=== PATIENT | female | born 1930 | race Caucasian/White ===

== ENCOUNTER 2016-09-17 17:36 | Inpatient (IN) | payer MEDICARE, MEDICAID ==
[~2016-09-17] VITALS: Ht 160 cm; Wt 58.6 kg
[2016-09-17] MEDS ORDERED: LEVOFLOXACIN 750MG/D5W (PMX) 150 ML IVPB STA (19:45)
[2016-09-17] MEDS ORDERED: CEFEPIME 2GM/50 ML (PMX) 50 ML IVPB STA (19:45)
[2016-09-17] MEDS ORDERED: VANCOMYCIN 1 GM (PMX) 250 ML IVPB STA (19:45)
[2016-09-17] MEDS ORDERED: ACETAMINOPHEN 325 MG SUPP PR STA (19:45)
--- NOTE | 2016-09-17 19:57 | ERA ---
ER Documentation Chief Complaint Date/Time DATE: 09/17/16 TIME: 19:50 Chief Complaint chest congestion,cough, low hgb from [facility],c/o lower back merry HPI History is limited due to the patient's cognitive impairment is obtained primarily from review of correction facility records and transferring paramedics and subsequently her daughter.. 85-year-old female with a history of cervical myelopathy, C5 -C7 incomplete quadriplegia, Parkinson's disease, hyperlipidemia, hypertension, GERD, polyarthritis and urinary tract infections brought to the ED via ambulance from [facility] for evaluation of fever, cough, bronchitis, and abnormal labs with H/H8 0.2/24.5 and sodium of 128. Patient has a POLST indicating DNR with comfort focused treatment and no artificial means of nutrition. Her legally recognized decision-maker is her daughter, Estrellita Velasquez who is at the bedside and confirms the patient desire for DNR and comfort measures.. ROS All systems reviewed and are negative except as per history of present illness. Medications Home Meds Reported Medications Cholecalciferol* (Vitamin D3*) 1,000 Unit Tablet, 1000 UNIT PO DAILY, TAB 09/17/16 Sodium Chloride* (Sodium Chloride*) 1 Gm Tablet, 1 GM PO BID, TAB 09/17/16 Carbidopa-Levodopa* (Sinemet*) 25-100 Mg Tab, 1 TAB PO BID, TAB 09/17/16 Sennosides* (Senna Lax*) 8.6 Mg Tablet, 1 TAB PO QHS, TAB 09/17/16 Hydrocodone/Acetaminophen ([place] 5-325 Tablet) 1 Each Tablet, 1 EACH PO Q6 Y for PAIN -05/28, TAB 09/17/16 Polyethylene Glycol* (Miralax*) 17 Gm Powd.pack, 17 GM PO DAILY, #30 PACKET 09/17/16 Metoprolol Tartrate* (Lopressor*) 25 Mg Tab, 25 MG PO BID, #60 TAB HOLD SBP LESS THAN 110 MMHG OR HR LESS THAN 60 BPM 09/17/16 Melatonin (Melatonin) 3 Mg Tablet.sa, 3 MG PO HS, TAB.SA 09/17/16 Megestrol Acetate* (Megace*) 400 Mg/10 Ml Oral.susp, 400 MG PO DAILY, ML 09/17/16 Mag Hydrox/Al Hydrox/Simeth (Maalox Advanced Suspension) 355 Ml Oral.susp, 30 ML PO Q4 09/17/16 Enoxaparin Sodium* (Lovenox*) 40 Mg/0.4 Ml Syringe, 40 MG SC DAILY, SYR 09/17/16 Losartan Potassium* (Losartan Potassium*) 50 Mg Tablet, 50 MG PO DAILY, TAB HOLD SBP LESS THAN 110 MMHG OR HR LESS THAN 60 BPM 09/17/16 Gabapentin* (Gabapentin*) 100 Mg Capsule, 100 MG PO QHS, #90 CAP 09/17/16 Famotidine* (Famotidine*) 20 Mg Tablet, 20 MG PO QAM, #30 TAB 09/17/16 Bisacodyl* (Bisacodyl*) 10 Mg Supp, 10 MG IN Q24H for CONSTIPATION, SUPP 09/17/16 Docusate Sodium* (Docusate Sodium*) 100 Mg Capsule, 100 MG PO BID, #60 CAP 09/17/16 Cranberry Fruit Concentrate (CRANBERRY) 450 Mg Capsule, 450 MG PO DAILY, CAP 09/17/16 Cholecalciferol* (Vitamin D3*) 1,000 Unit Tablet, 1000 UNIT PO DAILY, TAB 09/17/16 Atorvastatin* (Atorvastatin*) 40 Mg Tablet, 40 MG PO QHS, #30 TAB 09/17/16 Aspirin* (Aspirin* Chew) 81 Mg Tab.chew, 81 MG PO DAILY, TAB.CHEW 09/17/16 Acetaminophen* (Acetaminophen*) 500 MG Extra Strength Tablet, 1000 MG PO Q6H Y for PAIN LEVEL 4-6/10, TAB 09/17/16 Acetaminophen* (Acetaminophen*) 325 Mg Tablet, 650 MG PO Q4H Y for PAIN AND OR ELEVATED TEMP, #30 TAB if pain level 1-3/10 or temp greater than 101 deg. 09/17/16 Allergies Allergies: Coded Allergies: No Known Allergy (Unverified , 09/17/16) PMhx/Soc Reviewed in chart. As per HPI. Lives in a correction facility. DNR. Hx Neurological Disorder: Yes (Myelopathy, Parkinsons) Hx Respiratory Disorders: No Hx Cardiac Disorders: Yes (Hypertension) Hx Miscellaneous Medical Probl: Yes Hx Alcohol Use: No Hx Substance Use: No Hx Tobacco Use: No FmHx No stroke or cancer. Physical Exam Vitals Vital Signs Date Time Temp Pulse Resp B/P Pulse Ox O2 Delivery O2 Flow Rate FiO2 09/17/16 19:50 100.9 103 18 112/87 99 Room Air Nasal Cannula 09/17/16 19:50 Nasal Cannula 3 09/17/16 19:15 100.9 108 18 126/57 97 Physical Exam Const: Elderly, ill-appearing but in no acute distress. Head: Atraumatic Eyes: Normal Conjunctiva ENT: Normal External Ears, Nose and Mouth. Neck: Full range of motion. No JVD. No meningismus. Resp: Breath sounds diminished at the bases with occasional expiratory wheezing but no rhonchi. Cardio: Regular rate and rhythm, no murmurs Abd: Soft, non tender, non distended. Normal bowel sounds. Brown stool, heme (-). Skin: No petechiae or rashes Back: No midline or flank tenderness Ext: No cyanosis, or edema Neur: Awake and alert but confused. No focal deficit. Psych: Normal Mood and Affect Result Diagram: 09/18/16 0506 09/18/16 0506 Results 24 hrs Laboratory Tests Test 09/17/16 20:05 09/17/16 20:55 09/17/16 22:00 09/17/16 22:30 Activated Partial Thromboplast Time 34.2Sec Alanine Aminotransferase (ALT/SGPT) 31IU/L Albumin 3.4g/dl Albumin/Globulin Ratio 0.82 Alkaline Phosphatase 110IU/L Anion Gap 20 Aspartate Amino Transf (AST/SGOT) 55IU/L Band Neutrophils % 6.0% Blood Urea Nitrogen 22mg/dl Calcium Level 8.5mg/dl Carbon Dioxide Level 22mmol/L Chloride Level 92mmol/L Creatinine 0.77mg/dl Direct Bilirubin 0.00mg/dl Globulin 4.10g/dl Glucose Level 150mg/dl Hematocrit 29.6% Hemoglobin 9.9g/dl INR International Normalized Ratio 1.06 Indirect Bilirubin 0.0mg/dl Lactic Acid Level 1.9mmol/L 2.1mmol/L Lymphocytes # 1.910^3/ul Lymphocytes % 10.0% Mean Corpuscular Hemoglobin 31.6pg Mean Corpuscular Hemoglobin Concent 33.5g/dl Mean Corpuscular Volume 94.3fl Mean Platelet Volume 7.5fl Monocytes # 1.910^3/ul Monocytes % 10.0% Neutrophils # 14.010^3/ul Neutrophils % 74.0% Platelet Count 63893^3/UL Potassium Level 5.2mmol/L Prothrombin Time 13.8Sec Prothrombin Time Ratio 1.1 Red Blood Count 3.1410^6/ul Red Cell Distribution Width 13.6% Sodium Level 129mmol/L Total Bilirubin 0.0mg/dl Total Protein 7.5g/dl Troponin I 0.147ng/ml White Blood Count 18.910^3/ul Stool Occult Blood NEGATIVE Urine Bacteria MANY Urine Bilirubin NEGATIVE Urine Clarity CLOUDY Urine Color YELLOW Urine Glucose NEGATIVE% Urine Hemoglobin 1+ Urine Ketones NEGATIVE Urine Leukocyte Esterase 3+ Urine Microscopic RBC 2-5/HPF Urine Microscopic WBC >200/HPF Urine Nitrite NEGATIVE Urine Specific [place] 1.010 Urine Total Protein 2+ Urine Transitional Epithelial Cells FEW Urine Triple Phosphate Crystals FEW Urine Urobilinogen 0.2 E.U./dL Urine pH >=9.0 Current Medications Medications (Trade) Dose Ordered Sig/Leyda Route PRN Reason Start Time Stop Time Status Last Admin Dose Admin Acetaminophen 325 mg 325 mg ONCE STAT IN 09/17/16 19:45 09/17/16 19:50 DC 09/17/16 20:38 Vancomycin HCl 250 ml @ 125 mls/hr ONCE STAT IVPB 09/17/16 19:45 09/17/16 21:44 DC 09/17/16 20:39 Cefepime HCl 50 ml @ 100 mls/hr ONCE STAT IVPB 09/17/16 19:45 09/17/16 20:14 DC 09/17/16 20:38 Levofloxacin/ Dextrose (Levaquin 750 Mg/ D5W 150 ml (Pmx)) 150 ml @ 100 mls/hr ONCE STAT IVPB 09/17/16 19:45 09/17/16 21:14 DC 09/17/16 20:38 Pantoprazole (Protonix Iv) 40 mg ONCE ONCE IV 09/17/16 20:30 09/17/16 20:31 DC 09/17/16 20:38 Albuterol (Proventil 0.5% (Neb)) 10 mg ONCE STAT INH 09/17/16 20:21 09/17/16 20:22 DC Ipratropium [place] (Atrovent 0.02% (Neb)) 1 mg ONCE STAT INH 09/17/16 20:21 09/17/16 20:22 DC Aspirin 325 mg 325 mg ONCE ONCE PO 09/17/16 21:30 09/17/16 21:32 DC 09/17/16 21:37 Sodium Chloride (NS) 1,000 ml @ 75 mls/hr [id number] IV 09/17/16 22:36 09/18/16 02:32 DC EKG: Sinus tachycardia with occasional PAC's. Rate 104. No acute STTW changes. Normal axis. EP Interpretation: Abnormal EKG. IMAGING: PROCEDURE: XR Chest. CLINICAL INDICATION: Dyspnea and possible sepsis TECHNIQUE: AP Portable chest. COMPARISON: None available FINDINGS: The soft tissues and bones are remarkable for bilateral acromioclavicular osteoarthropathy and thoracic spondylosis.. No focal infiltrates, masses, or effusions are noted. The mediastinum and heart are remarkable for mild cardiomegaly and vascular calcifications of the thoracic aorta. No pneumothorax is present. IMPRESSION: 1. No radiographic evidence for acute cardiopulmonary disease. 2. Mild cardiomegaly and mild atherosclerotic vascular disease RPTAT: HDC .Jojo Pearce MD, MD Date Time Electronically viewed and signed by .Jojo Pearce MD, MD on 09/17/2016 21: 06 .C/ Procedures/MDM DOCUMENTS REVIEWED: ED nurse, correction facility records. MEDICAL DECISION MAKIN-year-old female with a history of cervical myelopathy, C5 -C7 incomplete quadriplegia, Parkinson's disease, hyperlipidemia , hypertension, GERD, polyarthritis and urinary tract infections brought to the ED via ambulance from [facility] for evaluation of fever, cough, bronchitis, and abnormal labs with H/H8.2/24.5 and sodium of 128. Multiple criteria for systemic inflammatory response syndrome including fever, tachycardia, tachypnea and leukocytosis. Source of infection UTI. Initial lactate is 1.6 and repeat is pending. Anemia with recent drop from 11.2-9.9gm/ dl. Stool is heme-negative. Hyponatremia and dehydration. Elevated troponin consistent with NSTEMI but no chest pain or ischemic EKG changes. Doubt PE. Patient and daughter reiterated request for DNR and comfort measures but agrees to admission, IV fluids and antibiotics. Patient will be admitted to [facility] for comfort measures, further evaluation and management. Counseled patient and family regarding diagnosis, diagnostic results and plan for admission. CALLS/CONSULTS: Time 2104, Dr. Sanabria, Recommends admission to [facility]. PATIENT CARE TRANSITIONED: Time: 22:00, Dr. Sanabria. Departure Diagnosis: Primary Impression: Sepsis Qualified Code: A41.9 - Sepsis, due to unspecified organism Additional Impressions: Urinary tract infection Qualified Code: N39.0 - Urinary tract infection without hematuria, site unspecified DNR (do not resuscitate) Acute encephalopathy Cervical myelopathy Anemia Qualified Code: D64.9 - Anemia, unspecified type Condition: Serious TERESA CHOUDHARY MD Sep 17, 2016 19:57
[2016-09-17] MEDS ORDERED: ALBUTEROL 0.5% (NEB) 2.5 MG/0.5 ML AMP INH STA (20:21)
[2016-09-17] MEDS ORDERED: IPRATROPIUM (NEB) 0.5 MG/2.5 ML AMP INH STA (20:21)
[2016-09-17] MEDS ORDERED: PANTOPRAZOLE 40 MG INJ IV ONE (20:30)
[2016-09-17] MEDS ORDERED: ACET325T45 PO (20:40)
[2016-09-17] MEDS ORDERED: ACET-141 PO (20:41)
[2016-09-17] MEDS ORDERED: ASPI81TA3 PO (20:42)
[2016-09-17] MEDS ORDERED: ATOR40TA68 PO (20:42)
[2016-09-17] MEDS ORDERED: CHOL100062 PO ×2 (20:43→21:02)
[2016-09-17] MEDS ORDERED: CRAN450C PO (20:44)
[2016-09-17] MEDS ORDERED: DOCU-159 PO (20:44)
[2016-09-17] MEDS ORDERED: FAMO20TA18 PO (20:45)
[2016-09-17] MEDS ORDERED: DULR PR (20:45)
[2016-09-17] MEDS ORDERED: GABA100C14 PO (20:46)
[2016-09-17] MEDS ORDERED: LOSA50TA6 PO (20:48)
[2016-09-17] MEDS ORDERED: ENOX40DI14 SC (20:49)
[2016-09-17 20:51] LABS: HEMATOCRIT 29.6 % (37.0-47.0); HEMOGLOBIN 9.9 g/dl (12.0-16.0); MEAN CORPUSCULAR HEMOGLOBIN 31.6 pg (29.0-33.0); MEAN CORPUSCULAR HGB CONC 33.5 g/dl (32.0-37.0); MEAN CORPUSCULAR VOLUME 94.3 fl (82.0-101.0); MEAN PLATELET VOLUME 7.5 fl (7.4-10.4); PLATELET COUNT 437 10^3/UL (140-440); RED BLOOD COUNT 3.14 10^6/ul (4.20-5.40); RED CELL DISTRIBUTION WIDTH 13.6 % (11.5-14.5); UNCORRECTED WBC 18.9 10^3/ul (4.8-10.8); WHITE BLOOD COUNT 18.9 10^3/ul (4.8-10.8)
[2016-09-17] MEDS ORDERED: MAG355OR14 PO (20:54)
[2016-09-17] MEDS ORDERED: MEGE400O PO (20:55)
[2016-09-17 20:56] LABS: CONDITION 1; LH ANALYZER COMMENTS 1; SUSPECT 1
[2016-09-17] MEDS ORDERED: MELA3TAB17 PO (20:56)
[2016-09-17] MEDS ORDERED: POLY17PO6 PO (20:58)
[2016-09-17] MEDS ORDERED: METO-448 PO (20:58)
[2016-09-17 20:59] LABS: ALBUMIN 3.4 g/dl (3.3-4.9); POTASSIUM 5.2 mmol/L (3.5-5.1)
[2016-09-17] MEDS ORDERED: HYDR-906 PO (20:59)
[2016-09-17 21:00] LABS: INR 1.06; PROTIME 13.8 Sec (12.2-14.2); PT RATIO 1.1
[2016-09-17] MEDS ORDERED: SENN-53 PO (21:00)
[2016-09-17 21:01] LABS: CREATININE 0.77 mg/dl (0.44-1.00); PARTIAL THROMBOPLASTIN TIME 34.2 Sec (25.0-35.0)
[2016-09-17] MEDS ORDERED: SODI1TAB2 PO (21:01)
[2016-09-17] MEDS ORDERED: SIN25100 PO (21:01)
[2016-09-17 21:02] LABS: ALBUMIN/GLOBULIN RATIO 0.82; TOTAL PROTEIN 7.5 g/dl (6.1-8.1)
[2016-09-17 21:03] LABS: CALCIUM 8.5 mg/dl (8.4-10.2)
--- NOTE | 2016-09-17 21:07 | RADRPT ---
PROCEDURE: XR Chest. CLINICAL INDICATION: Dyspnea and possible sepsis TECHNIQUE: AP Portable chest. COMPARISON: None available FINDINGS: The soft tissues and bones are remarkable for bilateral acromioclavicular osteoarthropathy and thora cic spondylosis.. No focal infiltrates, masses, or effusions are noted. The mediastinum and heart are remarkable for mild cardiomegaly and vascular calcifications of the thoracic aorta. No pneumoth orax is present. IMPRESSION: 1. No radiographic evidence for acute cardiopulmonary disease. 2. Mild cardiomegaly and mild atherosclerotic vascular disease RPTAT: HDC .Jojo Pearce MD, MD Date Time Electronically viewed and signed by .Jojo Pearce MD, on 09/17/2016 21:06 .C/
[2016-09-17 21:16] LABS: LYMPHOCYTES # 1.9 10^3/ul (0.8-2.9); MONOCYTE # 1.9 10^3/ul (0.3-0.9)
[2016-09-17 21:24] LABS: TROPONIN-I 0.147 ng/ml (0.00-0.12)
[2016-09-17] MEDS ORDERED: ASPIRIN 325 MG TAB PO ONE (21:30)
[2016-09-17] MEDS ORDERED: SOD CHLORIDE 0.9% 1,000 ML IV SCH (22:36)
[2016-09-17 23:00] LABS: ADD UMIC YES; URINE BILIRUBIN (Dip) NEGATIVE (NEGATIVE); URINE BLOOD (Dip) 1+ (NEGATIVE); URINE GLUCOSE (Dip) NEGATIVE (NEGATIVE); URINE KETONES (Dip) NEGATIVE (NEGATIVE); URINE LEUKOCYTE ESTERASE (Dip) 3+ (NEGATIVE); URINE NITRITE (Dip) NEGATIVE (NEGATIVE); URINE TOTAL PROTEIN (Dip) 2+ (NEGATIVE); URINE UROBILINOGEN (Dip) 0.2 E.U./dL (0.1-1.0)
[2016-09-17] MEDS ORDERED: ONDANSETRON 4 MG INJ IV PRN (23:00)
[2016-09-17] MEDS ORDERED: ACETAMINOPHEN 325 MG TAB PO PRN (23:00)
[2016-09-17 23:15] LABS: URINE COLOR YELLOW (YELLOW)
[2016-09-17 23:17] LABS: BACTERIA,URINE MANY
[2016-09-17 23:18] LABS: TRANSITIONAL EPI CELLS,URINE FEW
[2016-09-18 00:53] VITALS: TEMP 99
[2016-09-18] MEDS ORDERED: HYDROCODONE/APAP (5/325) TAB PO PRN (02:30)
[2016-09-18] MEDS ORDERED: ACETAMINOPHEN 500 MG TAB PO PRN (02:30)
[2016-09-18] MEDS ORDERED: BISACODYL 10 MG SUPP PR SCH (02:30)
[2016-09-18 02:36] VITALS: BP 99/49; PULSE 89; RESP 16; Ht 160 cm; Wt 58.6 kg
[2016-09-18] MEDS ORDERED: LEVOFLOXACIN 500MG/D5W (PMX) 100 ML IVPB ONE (03:30)
[2016-09-18] MEDS: AL HYDROX/MG HYDROX/SIMETH 30 ML CUP PO SCH ×5 (04:54→20:53)
[2016-09-18 05:56] LABS: POTASSIUM 5.1 mmol/L (3.5-5.1)
[2016-09-18 05:59] LABS: CREATININE 0.78 mg/dl (0.44-1.00)
[2016-09-18 06:24] LABS: EOSINOPHILS # 0.1 10^3/ul (0.0-0.5); EOSINOPHILS % 0.6 % (0.0-7.0); HEMATOCRIT 25.7 % (37.0-47.0); HEMOGLOBIN 8.9 g/dl (12.0-16.0); LYMPHOCYTES # 1.8 10^3/ul (0.8-2.9); LYMPHOCYTES % 12.2 % (15.0-51.0); MEAN CORPUSCULAR HEMOGLOBIN 32.6 pg (29.0-33.0); MEAN CORPUSCULAR HGB CONC 34.5 g/dl (32.0-37.0); MEAN CORPUSCULAR VOLUME 94.4 fl (82.0-101.0); MEAN PLATELET VOLUME 7.4 fl (7.4-10.4); MONOCYTE # 1.2 10^3/ul (0.3-0.9); NEUTROPHIL # 11.6 10^3/ul (1.6-7.5); NEUTROPHILS % 79.2 % (39.0-77.0); PLATELET COUNT 368 10^3/UL (140-440); RED BLOOD COUNT 2.72 10^6/ul (4.20-5.40); RED CELL DISTRIBUTION WIDTH 13.7 % (11.5-14.5); UNCORRECTED WBC 14.7 10^3/ul (4.8-10.8); WHITE BLOOD COUNT 14.7 10^3/ul (4.8-10.8)
[2016-09-18 07:03] LABS: CONDITION 1
[2016-09-18 07:17] VITALS: BP 121/58; RESP 18
[2016-09-18] MEDS: SODIUM CHLORIDE 1 GM TAB PO SCH ×2 (08:57→20:52)
[2016-09-18] MEDS: METOPROLOL 25 MG TAB PO SCH ×2 (08:57→20:53)
[2016-09-18] MEDS: DOCUSATE SODIUM 100 MG CAP PO SCH ×2 (08:57→20:53)
[2016-09-18] MEDS: CHOLECALCIFEROL 1,000 UNIT TAB PO SCH (08:57)
[2016-09-18] MEDS: CARBIDOPA/LEVODOPA (25/100) TAB PO SCH ×2 (08:58→20:53)
[2016-09-18] MEDS: MEGESTROL (40 MG/ML) 10ML CUP PO SCH (08:58)
[2016-09-18] MEDS: FAMOTIDINE 20 MG TAB PO SCH (08:58)
[2016-09-18] MEDS: ASPIRIN 81 MG TAB PO SCH (08:58)
[2016-09-18] MEDS: POLYETHYLENE GLYCOL 17 GM PACKET PO SCH (08:59)
[2016-09-18] MEDS: BISACODYL 10 MG SUPP PR SCH (08:59)
[2016-09-18] MEDS ORDERED: LOSARTAN 50 MG TAB PO SCH (09:00)
[2016-09-18] MEDS ORDERED: CHOLECALCIFEROL 1,000 UNIT TAB PO SCH (09:00)
[2016-09-18] MEDS: ENOXAPARIN 40 MG/0.4 ML SYG SC SCH (09:00)
[2016-09-18] MEDS ORDERED: NON-FORMULARY/PATIENT OWN MED (Cranberry Fruit Concentrate (Cranberry) 450 MG) PO SCH (09:00)
--- NOTE | 2016-09-18 14:02 | HP ---
DATE OF ADMISSION: 09/17/2016 CHIEF COMPLAINT: Chest congestion, cough. HISTORY OF PRESENT ILLNESS: The patient is an 85-year-old female who is a resident of [facility]. The patient has a history of cervical myelopathy with C5-C7 Incom plete quadriplegia, Parkinson's disease, hyperlipidemia, hypertension, GERD, polyarthritis. The juan chan was brought to the emergency room for evaluation of fever, cough. In the emergency room, the p shukri underwent a chest x-ray which revealed no radiographic evidence of acute cardiopulmonary dise ase, mild cardiomegaly, and mild atherosclerotic vascular disease. The patient's urinalysis was pos itive for leukocyte esterase and many bacteria. The patient was noted to have anemia with hemoglobi n on admission of 9.9 and hematocrit of 29.6. The patient's sodium was 129, potassium was 5.2. The patient's lactic acid was 1.9; however, the patient's troponin was 0.147. The patient is DNR accor ding to POLST from the [facility]. The patient also underwent a 12-lead EKG in the em ergency room that shows sinus tachycardia with occasional PAC at the rate of 104. The patient was g iven IV fluids and started on broad-spectrum antibiotics and admitted for further evaluation and man agement to medical/surgical floor. PAST MEDICAL HISTORY: Per HPI. FAMILY HISTORY: Noncontributory. SOCIAL HISTORY: The patient is a resident of [facility]. ALLERGIES: NO KNOWN ALLERGIES. MEDICATIONS ON ADMISSION: 1. Cholecalciferol. 2. Sodium chloride. 3. Sinemet. 4. Senna. 5. [place]. 6. MiraLax p.r.n. 7. Metoprolol. 8. Melatonin. 9. Megace. 10. Maalox. 11. Lovenox. 12. Cozaar 13. Gabapentin. 14. Pepcid. 15. Bisacodyl. 16. Docusate sodium. 17. Cranberry extract. 18. Vitamin D3. 19. Atorvastatin. 20. Aspirin. 21. Tylenol. REVIEW OF SYSTEMS: The patient denies any chest pain, denies any shortness of breath, denies any na usea, vomiting, diarrhea. Other 12-point review of systems is negative unless what is mentioned in the HPI. PHYSICAL EXAMINATION: GENERAL: Well-developed, well-nourished female, currently is awake, alert to name and situation. VITAL SIGNS: Temperature is 98.0, pulse is 86, blood pressure 121/58, respiratory rate 18, oxygen s aturation 100% on 2 L nasal cannula. HEENT: Head is atraumatic, normocephalic. Pupils equal, round, reactive to light and accommodation . Oral mucosa is pink, moist. NECK: Supple, no cervical lymphadenopathy, no thyromegaly. CHEST: Lung sounds are slightly diminished at the bases with mild expiratory wheezes. CARDIOVASCULAR: Normal S1, S2. No murmurs, gallops, clicks, rubs noted. ABDOMEN: Round, soft, nondistended, nontender. Bowel sounds present. There is no guarding, no kathe ound tenderness. SKIN: There is no rash, petechiae noted. EXTREMITIES: No edema, clubbing, cyanosis. NEUROLOGIC: The patient is awake to name and station, otherwise confused. No focal deficits noted. LABORATORY DATA: On admission, CBC: White blood cells 18.9, hemoglobin 9.9, hematocrit 29.6, plate lets 434. Chemistry: Sodium is 129, potassium 5.2, chloride 92, carbon dioxide 22, anion gap 20, B UN is 22, creatinine 0.77, glucose 150. PT 13.8, INR is 1.068, PTT 34.2. Stool for occult blood is negative. ASSESSMENT AND PLAN: 1. Urinary tract infection per urinalysis. Continue patient on Levaquin. Follow up on urine cultu res. Preliminary culture shows mixed gram-negative organisms, more than 100,000. 2. Sepsis secondary to urinary tract infection. Continue IV fluids. 3. Elevated troponin. Will obtain cardiac enzymes q.8 hours x3 and obtain 12-lead EKG and a 2-D ec ho. Dr. King is asked to see patient in cardiology consultation. 4. Hyponatremia secondary to dehydration and hyperkalemia on admission. 5. Cervical myelopathy by history. 6. Hypertension by history. 7. Acute encephalopathy. 8. Anemia. Continue IV fluids. 9. The patient is currently borderline hypotensive. We are going to hold the patient's blood press ure medication. 10. Continue Protonix for peptic ulcer disease prophylaxis and Lovenox for deep venous thrombosis p rophylaxis. Further recommendations based on clinical course. Plan of care discussed with Dr. Willett. Dictated By: ERMIAS TOBAR AUDITOR/QUALITY for SUJATHA WILLETT MD SR/NTS Conf#: [id number] DID#: [id number]
--- NOTE | 2016-09-18 14:45 | CONS ---
Date/Time of Note Date/Time of Note DATE: 09/18/16 TIME: 14:41 Assessment/Plan Assessment/Plan Additional Assessment/Plan Sepsis secondary to UTI Mildly elevated troponin History of hypertension Dyslipidemia Parkinson's -Patient with mild elevation in troponin with no symptoms of chest pain or shortness of breath. Likely secondary to sepsis. Would continue aspirin and statin therapy, obtain serial cardiac enzymes, echocardiogram pending. In review of medical record, patient is DNR with requested comfort measures only. Would continue beta tyler with holding parameters. Antibiotics as per infectious disease colleagues. Consultation Date/Type/Reason Admit Date/Time Sep 17, 2016 at 22:36 Type of Consultation: cv Reason for Consultation Elevated troponin Hx of Present Illness This is an 85-year-old female from nursing facility who was transferred to our facility secondary to fevers, altered mental status. Patient felt to have urinary tract infection and evidence of sepsis. On routine blood work, patient with mildly elevated troponin and for this reason cardiology consultation was requested. Patient denies any chest pain, shortness of breath, dizziness or palpitations. She does complain of back pain and headache this morning which is improved. She denies any history of myocardial infarction. 12 point review of systems was performed with all pertinent positives and negatives mentioned above and all else is negative Past Medical History Parkinson's Medical History: high cholesterol, hypertension Family History Significant Family History: no pertinent family hx Social History Smoking Status: Never smoker Other Social History From nursing facility Exam/Review of Systems Vital Signs Vitals Vital Signs Date Time Temp Pulse Resp B/P Pulse Ox O2 Delivery O2 Flow Rate FiO2 09/18/16 07:17 98.0 86 18 121/58 100 09/18/16 02:36 Nasal Cannula 2.0 Intake and Output 09/17/16 09/17/16 09/18/16 15:00 23:00 07:00 Intake Total 240 ml Balance 240 ml Exam Following commands, able to give some history, no apparent distress Constitutional: alert Head: normocephalic Respiratory: other (course breath sounds bilaterally, no wheezing) Cardiovascular: other (S1-S2 heard), regular rate and rhythm Gastrointestinal: bowel sounds, non-tender, other (no guarding), soft Extremities: other (no edema) Neurological: other (follows commands) Results Result Diagram: 09/18/16 0506 09/18/16 0506 Results 24 hrs Laboratory Tests Test 09/17/16 20:05 09/17/16 20:55 09/17/16 22:00 09/17/16 22:30 Activated Partial Thromboplast Time 34.2 Alanine Aminotransferase (ALT/SGPT) 31 Albumin 3.4 Albumin/Globulin Ratio 0.82 Alkaline Phosphatase 110 Anion Gap 20 H Aspartate Amino Transf (AST/SGOT) 55 H Band Neutrophils % 6.0 H Blood Urea Nitrogen 22 H Calcium Level 8.5 Carbon Dioxide Level 22 Chloride Level 92 L Creatinine 0.77 Direct Bilirubin 0.00 Globulin 4.10 H Glucose Level 150 Hematocrit 29.6 L Hemoglobin 9.9 L INR International Normalized Ratio 1.06 Indirect Bilirubin 0.0 Lactic Acid Level 1.9 2.1 Lymphocytes # 1.9 Lymphocytes % 10.0 L Mean Corpuscular Hemoglobin 31.6 Mean Corpuscular Hemoglobin Concent 33.5 Mean Corpuscular Volume 94.3 Mean Platelet Volume 7.5 Monocytes # 1.9 H Monocytes % 10.0 Neutrophils # 14.0 H Neutrophils % 74.0 Platelet Count 437 Potassium Level 5.2 H Prothrombin Time 13.8 Prothrombin Time Ratio 1.1 Red Blood Count 3.14 L Red Cell Distribution Width 13.6 Sodium Level 129 L Total Bilirubin 0.0 L Total Protein 7.5 Troponin I 0.147 *H White Blood Count 18.9 H Stool Occult Blood NEGATIVE Urine Bacteria MANY Urine Bilirubin NEGATIVE Urine Clarity CLOUDY Urine Color YELLOW Urine Glucose NEGATIVE Urine Hemoglobin 1+ H Urine Ketones NEGATIVE Urine Leukocyte Esterase 3+ H Urine Microscopic RBC 2-5 Urine Microscopic WBC >200 Urine Nitrite NEGATIVE Urine Specific [place] 1.010 Urine Total Protein 2+ H Urine Transitional Epithelial Cells FEW Urine Triple Phosphate Crystals FEW Urine Urobilinogen 0.2 E.U./dL Urine pH >=9.0 Test 09/18/16 00:26 09/18/16 05:06 Lactic Acid Level 1.3 Anion Gap 14 Basophils # 0.0 Basophils % 0.0 Blood Morphology Comment Blood Urea Nitrogen 21 H Calcium Level 8.0 L Carbon Dioxide Level 24 Chloride Level 100 Creatinine 0.78 Eosinophils # 0.1 Eosinophils % 0.6 Glucose Level 83 # Hematocrit 25.7 L Hemoglobin 8.9 L Lymphocytes # 1.8 Lymphocytes % 12.2 L Mean Corpuscular Hemoglobin 32.6 Mean Corpuscular Hemoglobin Concent 34.5 Mean Corpuscular Volume 94.4 Mean Platelet Volume 7.4 Monocytes # 1.2 H Monocytes % 8.0 Neutrophils # 11.6 H Neutrophils % 79.2 H Nucleated Red Blood Cells # 0.0 Nucleated Red Blood Cells % 0.0 Platelet Count 368 Potassium Level 5.1 Red Blood Count 2.72 L Red Cell Distribution Width 13.7 Sodium Level 133 L White Blood Count 14.7 #H Medications Medications Current Medications Acetaminophen (Tylenol Tab) 650 mg Q4H PRN PO PAIN AND OR ELEVATED TEMP; Start 09/18/16 at 02:30 Acetaminophen (Tylenol Tab) 1,000 mg Q6H PRN PO PAIN LEVEL 4-6/10; Start at 02:30 Aspirin (Aspirin) 81 mg DAILY PO Last administered on 09/18/16 08:58; Admin Dose 81 MG; Start 09/18/16 at 09:00 Atorvastatin Calcium (Lipitor) 40 mg QHS PO ; Start 09/18/16 at 21:00 Carbidopa/Levodopa (Sinemet (25/ 100)) 1 tab BID PO Last administered on 08:58; Admin Dose 1 TAB; Start 09/18/16 at 09:00 Cholecalciferol (Vitamin D) 1,000 unit DAILY PO Last administered on 09/18/16 08:57; Admin Dose 1,000 UNIT; Start 09/18/16 at 09:00 Docusate Sodium (Colace) 100 mg BID PO Last administered on 09/18/16 08:57; Admin Dose 100 MG; Start 09/18/16 at 09:00 Enoxaparin Sodium (Lovenox) 40 mg DAILY SC Last administered on 09/18/16 09:00 ; Admin Dose 40 MG; Start 09/18/16 at 09:00 Famotidine (Pepcid) 20 mg QAM PO Last administered on 09/18/16 08:58; Admin Dose 20 MG; Start 09/18/16 at 09:00 Gabapentin (Neurontin) 100 mg QHS PO ; Start 09/18/16 at 21:00 Acetaminophen/ Hydrocodone Bitart ([place] (5/325)) Q6 As needed for pain Q6 PRN PO PAIN 7-10/10; Start 09/18/16 at 02:30 Losartan Potassium (Cozaar) 50 mg DAILY PO Last administered on 09/18/16 08:58 ; Admin Dose 50 MG; Start 09/18/16 at 09:00 Al Hydrox/Mg Hydrox/Simethicone (Mag-Al Plus) 30 ml Q4 PO Last administered on 09/18/16 14:16; Admin Dose 30 ML; Start 09/18/16 at 05:00 Megestrol Acetate (Megace Susp) 400 mg DAILY PO Last administered on 09/18/16 08:58; Admin Dose 400 MG; Start 09/18/16 at 09:00 Metoprolol Tartrate (Lopressor) 25 mg BID PO Last administered on 09/18/16 08: 57; Admin Dose 25 MG; Start 09/18/16 at 09:00 Polyethylene Glycol (Miralax) 17 gm DAILY PO Last administered on 09/18/16 08: 59; Admin Dose 17 GM; Start 09/18/16 at 09:00 Senna (Senokot) 1 tab QHS PO ; Start 09/18/16 at 21:00 Sodium Chloride (Nacl) 1 gm BID PO Last administered on 09/18/16 08:57; Admin Dose 1 GM; Start 09/18/16 at 09:00 Bisacodyl 10 mg 10 mg Q24H [place] Last administered on 09/18/16 08:59; Admin Dose 10 MG; Start 09/18/16 at 09:00 Levofloxacin/ Dextrose (Levaquin 250 Mg/ D5W 50 ml (Pmx)) 50 ml @ 50 mls/hr Q24H IVPB ; Start 09/19/16 at 03:30 Procedures Procedures ECG with sinus rhythm, normal QRS duration, nonspecific STT wave abnormalities Israel King DO Sep 18, 2016 14:45
[2016-09-18 15:28] LABS: CK-MB 0.86 ng/ml (0.0-2.4)
[2016-09-18 15:32] LABS: TROPONIN-I 0.031 ng/ml (0.00-0.12)
[2016-09-18 19:11] LABS: CK-MB 0.78 ng/ml (0.0-2.4)
[2016-09-18 19:14] LABS: TROPONIN-I 0.036 ng/ml (0.00-0.12)
--- NOTE | 2016-09-18 20:12 | CONS ---
DATE OF ADMISSION: 09/17/2016 DATE OF CONSULTATION: TYPE OF CONSULTATION: Gastroenterology. Dear Dr. King: Thank you for asking me to see Ms. Streeter in GI consultation. HISTORY OF PRESENT ILLNESS: The patient, as you know, is an 85-year-old Filip[place] female, is admitte d to the hospital from [facility]. She was found to have a fever and cough, probably upper respiratory infection, and GI consultation is requested because of anemia . Her hemoglobin was 9.9, hematocrit 29.6. No history of vomiting blood or passing blood from the rec suzanne. REVIEW OF SYSTEMS: She has got history of depression, constipation, history of hypertension. There is a possibility of urinary tract infection this admission, elevated troponin, electrolyte imb alance. MEDICATIONS PRIOR TO THE ADMISSION: Include: 1. Cholecalciferol. 2. Sinemet. 3. Senna. 4. [place]. 5. MiraLax. 6. Metoprolol. 7. Melatonin. 8. Megace. 9. Maalox. 10. Lovenox. 11. Cozaar. 12. Gabapentin. 13. Pepcid. 14. Bisacodyl. 15. Vitamin D3. 16. Atorvastatin. 17. Aspirin. PHYSICAL EXAMINATION: GENERAL: The patient is an 85-year-old Filip[place] female who at this time is alert, not in distress. VITAL SIGNS: Pulse is 89, temperature 97.3, respirations 16. Blood pressure 99/49, subsequently 12 1/58. CARDIOVASCULAR: Normal heart sounds. RESPIRATORY: Normal breath sounds. ABDOMEN: Soft abdomen with no palpable masses, no tenderness, no distention. RECTAL: Deferred. LABORATORY WORKUP: Hemoglobin ____, now 9 today. WBC is 14,700, platelets 368,000. The chemistry shows evidence of troponin 0.031, CO2 24, potassium 5.1. AST is 55, which is minimally elevated. A LT 31, which is normal. CLINICAL IMPRESSION: The patient presenting with history of severe anemia, rule out bleeding ulcer disease, arteriovenous malformation, gastritis, etc. Certainly she could have a colorectal neoplasm . PLAN: At this time recommend upper endoscopy, and if necessary, she may need a lower endoscopy. Once again, doctor, thank you for this consultation. Dictated By: ALYSON TURCIOS/NTS Conf#: [id number] DID#: [id number] CC: SUJATHA KING MD;*[facility]*
[2016-09-18 20:34] VITALS: BP 108/53; RESP 21
[2016-09-18] MEDS: ACETAMINOPHEN 325 MG TAB PO PRN (20:52)
[2016-09-18] MEDS: SENNA TAB PO SCH (20:52)
[2016-09-18] MEDS: ATORVASTATIN 40 MG TAB PO SCH (20:53)
[2016-09-18] MEDS: GABAPENTIN 100 MG CAP PO SCH (20:53)
[2016-09-18] MEDS ORDERED: NON-FORMULARY/PATIENT OWN MED (Melatonin 3 MG) PO SCH (21:00)
--- NOTE | 2016-09-18 21:35 | RADRPT ---
Echocardiogram Report Patient Name: CHASE REGAN Gender: Female Date: 1930 Study Date: 18-Sep-2016 Clerical Investigator: Emily Tillman [facility] Location: [facility] Ref. Physician: ERMIAS TOBAR Quality: Good Procedures: Transthoracic echocardiogram with complete 2D, M-Mode, and doppler examination. Indications: Elevated troponin. 2D/M Mode Doppler Measurement Value Normal Ranges Measurement Value Normal Ranges LVIDd 2D 4.3 3.5 - 5.6 cm AV Peak Tyshawn 1.7 m/sec LVIDs 2D 2.2 2.1 - 4.1 cm AV Peak PG 12.0 mmHg FS 2D 49.4 % LVOT Peak Tyshawn 1.3 m/sec LVPWd 2D 0.9 0.6 - 1.1 cm LVOT Peak PG 7.0 mmHg IVSd 2D 1.0 0.6 - 1.1 cm MV E Peak Tyshawn 0.5 m/sec IVS/LVPW 2D 1.1 MV A Peak Tyshawn 0.8 m/sec AoR Diam 2D 2.2 2.0 - 3.7 cm MV E/A 0.6 LA/Ao 2D 2 0 - 1 MV Decel Time 155 msec EDV 2D 80.1 cm3 MV E/A 0.6 ESV 2D 10.4 cm3 TR Peak Tyshawn 2.6 m/sec LA Dimen 2D 3.5 2.3 - 4.0 cm TR Peak PG 26.0 mmHg RVSP 29.0 mmHg Findings Left Ventricle: Normal left ventricular systolic function. Normal left ventricular cavity size. Normal left ventricular wall thickness. Ejection fraction is visually estimated at 65 %. Tissue Doppler/Mitral Doppler indices are consistent with impaired relaxation (Stage I diastolic dysfunction). Right Ventricle: Normal right ventricular size. Normal right ventricular systolic function. Left Atrium: The left atrium is normal in size. Right Atrium: The right atrium is normal in size. Mitral Valve: Mitral valve leaflets appear mildly thickened. Mild mitral annular calcification. Trace mitral regurgitation. Aortic Valve: Normal appearance of the aortic valve. No significant aortic stenosis or insufficiency. Tricuspid Valve: Normal appearance of the tricuspid valve. Estimated peak PA systolic pressure 29 mmHg. There is trace tricuspid regurgitation. Pericardium: Normal pericardium with no significant pericardial effusion. Aorta: Normal aortic root. IVC: Normal size and normal respiratory collapse consistent with normal right atrial pressure. Conclusions Normal left ventricular systolic function. Normal left ventricular cavity size. Normal left ventricular wall thickness. Ejection fraction is visually estimated at 65 %. Tissue Doppler/Mitral Doppler indices are consistent with impaired relaxation (Stage I diastolic dysfunction). Normal right ventricular size. Normal right ventricular systolic function. The left atrium is normal in size. The right atrium is normal in size. No significant valvular stenosis or regurgitation seen. Normal pericardium with no significant pericardial effusion. Electronically Signed By: Israel King 18-Sep-2016 21:35:04 -0800 Patient Name: CHASE REGAN Study Date: 18-Sep-2016 [id number]
[2016-09-19] VITALS (9 sets, daily range): BP systolic 91–128; BP diastolic 40–60; PULSE 70–81; RESP 10–23
[2016-09-19] MEDS: AL HYDROX/MG HYDROX/SIMETH 30 ML CUP PO SCH ×6 (01:00→21:11)
[2016-09-19 01:36] LABS: CK-MB 0.52 ng/ml (0.0-2.4)
[2016-09-19 01:39] LABS: TROPONIN-I 0.047 ng/ml (0.00-0.12)
[2016-09-19] MEDS ORDERED: LEVOFLOXACIN 500MG/D5W (PMX) 100 ML IVPB SCH (02:00)
[2016-09-19] MEDS: LEVOFLOXACIN 250MG/D5W (PMX) 50 ML IVPB SCH (04:08)
[2016-09-19 06:10] LABS: BASOPHIL # 0.1 10^3/ul (0.0-0.1); BASOPHILS % 0.5 % (0.0-2.0); EOSINOPHILS # 0.2 10^3/ul (0.0-0.5); EOSINOPHILS % 2.2 % (0.0-7.0); HEMATOCRIT 24.9 % (37.0-47.0); HEMOGLOBIN 8.4 g/dl (12.0-16.0); LYMPHOCYTES # 2.3 10^3/ul (0.8-2.9); LYMPHOCYTES % 20.6 % (15.0-51.0); MEAN CORPUSCULAR HGB CONC 33.5 g/dl (32.0-37.0); MEAN CORPUSCULAR VOLUME 95.4 fl (82.0-101.0); MEAN PLATELET VOLUME 7.5 fl (7.4-10.4); MONOCYTE # 0.8 10^3/ul (0.3-0.9); MONOCYTES % 7.3 % (0.0-11.0); NEUTROPHIL # 7.7 10^3/ul (1.6-7.5); NEUTROPHILS % 69.4 % (39.0-77.0); PLATELET COUNT 402 10^3/UL (140-440); RED BLOOD COUNT 2.61 10^6/ul (4.20-5.40); RED CELL DISTRIBUTION WIDTH 13.6 % (11.5-14.5); UNCORRECTED WBC 11.1 10^3/ul (4.8-10.8); WHITE BLOOD COUNT 11.1 10^3/ul (4.8-10.8)
[2016-09-19 06:32] LABS: CONDITION 1
[2016-09-19 07:03] LABS: CREATININE 0.7 mg/dl (0.44-1.00)
[2016-09-19 07:05] LABS: CALCIUM 8.3 mg/dl (8.4-10.2)
[2016-09-19] MEDS: FAMOTIDINE 20 MG TAB PO SCH (08:35)
[2016-09-19] MEDS: ENOXAPARIN 40 MG/0.4 ML SYG SC SCH (08:35)
[2016-09-19] MEDS: CARBIDOPA/LEVODOPA (25/100) TAB PO SCH ×2 (08:35→21:10)
[2016-09-19] MEDS: BISACODYL 10 MG SUPP PR SCH (08:35)
[2016-09-19] MEDS: CHOLECALCIFEROL 1,000 UNIT TAB PO SCH (08:35)
[2016-09-19] MEDS: MEGESTROL (40 MG/ML) 10ML CUP PO SCH (08:36)
[2016-09-19] MEDS: METOPROLOL 25 MG TAB PO SCH ×2 (08:36→21:11)
[2016-09-19] MEDS: SODIUM CHLORIDE 1 GM TAB PO SCH ×2 (08:36→21:10)
[2016-09-19] MEDS: POLYETHYLENE GLYCOL 17 GM PACKET PO SCH (08:36)
[2016-09-19] MEDS: DOCUSATE SODIUM 100 MG CAP PO SCH ×2 (08:37→21:10)
[2016-09-19] MEDS: ASPIRIN 81 MG TAB PO SCH (08:37)
[2016-09-19] MEDS ORDERED: LOSARTAN 25 MG TAB PO SCH (09:00)
--- NOTE | 2016-09-19 09:28 | RADRPT ---
Vent Rate: 72 bpm RR Interval: 0 msec NV Interval: 182 msec QRS Duration: 64 msec QT Interval: 406 msec QTC Interval: 444 msec P-R-T [place]: 28 - 38 - 41 degrees Normal sinus rhythm with sinus arrhythmia Low voltage QRS Borderline ECG Electronically Signed By: Vicente Mejia [id number]
[2016-09-19] MEDS ORDERED: PROPOFOL 20 ML ONE (12:08)
[2016-09-19] MEDS ORDERED: FENTAnyl 50 MCG/ML VIAL ONE (12:08)
[2016-09-19] MEDS ORDERED: MIDAZOLAM 1 MG/ML 2 ML INJ ONE (12:08)
[2016-09-19] MEDS ORDERED: EPHEDrine SULFATE 50 MG/5 ML SYG ONE (12:09)
[2016-09-19] MEDS ORDERED: PHENYLephrine (100 MCG/ML) 5ML SYG ONE (12:09)
--- NOTE | 2016-09-19 13:53 | CONS ---
Date/Time of Note Date/Time of Note DATE: 09/19/16 TIME: 13:42 Assessment/Plan Assessment/Plan Chief Complaint/Hosp Course 85-year-old female from nursing facility who was transferred to our facility secondary to fevers, and currently being treated for sepsis with antibiotics. During her hospitalization patient has become more anemic. -Will send for anemia workup. Will need to rule out iron deficiency, hemolysis, Vitb12/ folate deficiency, monoclonal gammopathy, and bone marrow function -f/u results of endoscopy -further recommendations will depending on kike results of the above labs Approximately 40 min were spent Problems: Consultation Date/Type/Reason Admit Date/Time Sep 17, 2016 at 22:36 Date of Consultation: Sep 19, 2016 Type of Consultation: hematology Reason for Consultation anemia Referring Provider: SUJATHA WILLETT MD Hx of Present Illness 85-year-old female who is a resident of [facility]. Patient has multiple medical problems including cervical myelopathy with C5-C7 Incomplete quadriplegia, Parkinson's disease, hyperlipidemia, hypertension, GERD, polyarthritis. The patient was brought to the emergency room for evaluation of fever, cough and was found to be hyponatremic. Pt was started on antibiotics. Since admission it is noted that her hg dropped from 9.9 to 8.4, hence the reason for this consult. Pt has been seen by GI who is planning for endoscopy and colonoscopy. Subjective hx not possible: other Constitutional: other (weakenss) Eyes: no complaints ENT: no complaints Respiratory: shortness of breath Gastrointestinal: other (pain) Genitourinary: no complaints Musculoskeletal: bone/joint pain Skin: no complaints Neurologic: no complaints Endocrine: no complaints Past Medical History Medical History: high cholesterol, hypertension Past Surgical History Past Surgical Hx: no surgical history Family History Significant Family History: no pertinent family hx Social History Alcohol Use: none Smoking Status: Never smoker Drug Use: none Exam/Review of Systems Vital Signs Vitals Vital Signs Date Time Temp Pulse Resp B/P Pulse Ox O2 Delivery O2 Flow Rate FiO2 09/19/16 13:21 72 21 110/40 100 Room Air 09/19/16 12:52 98.6 10.0 Intake and Output 09/18/16 09/18/16 09/19/16 15:00 23:00 07:00 Intake Total 1530 ml 290 ml Balance 1530 ml 290 ml Exam Constitutional: frail Psych: anxiety, depression Head: normocephalic Eyes: nl conjunctiva ENMT: nl external ears & nose Neck: supple Respiratory: clear to auscultation, normal air movement Cardiovascular: regular rate and rhythm Gastrointestinal: soft Extremities: normal pulses Results Result Diagram: 09/19/16 0505 09/19/16 0505 Results 24 hrs Laboratory Tests Test 09/18/16 14:15 09/18/16 18:45 09/19/16 00:25 09/19/16 05:05 Creatine Kinase 32 25 22 L Creatine Kinase Index 2.7 3.1 2.4 Creatinine Kinase MB (Mass) 0.86 0.78 0.52 Troponin I 0.031 0.036 0.047 Anion Gap 14 Basophils # 0.1 Basophils % 0.5 Blood Urea Nitrogen 18 Calcium Level 8.3 L Carbon Dioxide Level 24 Chloride Level 101 Creatinine 0.70 Eosinophils # 0.2 Eosinophils % 2.2 Glucose Level 81 Hematocrit 24.9 L Hemoglobin 8.4 L Lymphocytes # 2.3 Lymphocytes % 20.6 Mean Corpuscular Hemoglobin 32.0 Mean Corpuscular Hemoglobin Concent 33.5 Mean Corpuscular Volume 95.4 Mean Platelet Volume 7.5 Monocytes # 0.8 Monocytes % 7.3 Neutrophils # 7.7 H Neutrophils % 69.4 Nucleated Red Blood Cells # 0.0 Nucleated Red Blood Cells % 0.0 Platelet Count 402 Potassium Level 5.0 Red Blood Count 2.61 L Red Cell Distribution Width 13.6 Sodium Level 134 L White Blood Count 11.1 #H Medications Medications Current Medications Acetaminophen (Tylenol Tab) 650 mg Q4H PRN PO PAIN AND OR ELEVATED TEMP Last administered on 09/18/16 20:52; Admin Dose 650 MG; Start 09/18/16 at 02:30 Acetaminophen (Tylenol Tab) 1,000 mg Q6H PRN PO PAIN LEVEL 4-6/10; Start at 02:30 Aspirin (Aspirin) 81 mg DAILY PO Last administered on 09/18/16 08:58; Admin Dose 81 MG; Start 09/18/16 at 09:00 Atorvastatin Calcium (Lipitor) 40 mg QHS PO Last administered on 09/18/16 20: 53; Admin Dose 40 MG; Start 09/18/16 at 21:00 Carbidopa/Levodopa (Sinemet (25/ 100)) 1 tab BID PO Last administered on 20:53; Admin Dose 1 TAB; Start 09/18/16 at 09:00 Cholecalciferol (Vitamin D) 1,000 unit DAILY PO Last administered on 09/18/16 08:57; Admin Dose 1,000 UNIT; Start 09/18/16 at 09:00 Docusate Sodium (Colace) 100 mg BID PO Last administered on 09/18/16 20:53; Admin Dose 100 MG; Start 09/18/16 at 09:00 Enoxaparin Sodium (Lovenox) 40 mg DAILY SC Last administered on 09/18/16 09:00 ; Admin Dose 40 MG; Start 09/18/16 at 09:00 Famotidine (Pepcid) 20 mg QAM PO Last administered on 09/18/16 08:58; Admin Dose 20 MG; Start 09/18/16 at 09:00 Gabapentin (Neurontin) 100 mg QHS PO Last administered on 09/18/16 20:53; Admin Dose 100 MG; Start 09/18/16 at 21:00 Acetaminophen/ Hydrocodone Bitart ([place] (5/325)) Q6 As needed for pain Q6 PRN PO PAIN 7-10/10; Start 09/18/16 at 02:30 Al Hydrox/Mg Hydrox/Simethicone (Mag-Al Plus) 30 ml Q4 PO Last administered on 09/18/16 20:53; Admin Dose 30 ML; Start 09/18/16 at 05:00 Megestrol Acetate (Megace Susp) 400 mg DAILY PO Last administered on 09/18/16 08:58; Admin Dose 400 MG; Start 09/18/16 at 09:00 Metoprolol Tartrate (Lopressor) 25 mg BID PO Last administered on 09/18/16 20: 53; Admin Dose 25 MG; Start 09/18/16 at 09:00 Polyethylene Glycol (Miralax) 17 gm DAILY PO Last administered on 09/18/16 08: 59; Admin Dose 17 GM; Start 09/18/16 at 09:00 Senna (Senokot) 1 tab QHS PO Last administered on 09/18/16 20:52; Admin Dose 1 TAB; Start 1/31/17 at 21:00 Sodium Chloride (Nacl) 1 gm BID PO Last administered on 09/18/16 20:52; Admin Dose 1 GM; Start 09/18/16 at 09:00 Bisacodyl 10 mg 10 mg Q24H IN Last administered on 09/18/16 08:59; Admin Dose 10 MG; Start 09/18/16 at 09:00 Levofloxacin/ Dextrose (Levaquin 250 Mg/ D5W 50 ml (Pmx)) 50 ml @ 50 mls/hr Q24H IVPB Last administered on 09/19/16 04:08; Admin Dose 50 MLS/HR; Start 09/19 at 03:30 Losartan Potassium (Cozaar) 25 mg BID PO ; Start 09/19/16 at 09:00 AIDA GABRIEL M.D. Sep 19, 2016 13:53
[2016-09-19 14:39] LABS: RETICULOCYTE COUNT % 0.9 % (0.5-1.5)
[2016-09-19 14:49] LABS: IRON 34 ug/dl (35-150)
[2016-09-19 14:58] LABS: TOTAL IRON BINDING CAPACITY 200 ug/dl (241-421)
--- NOTE | 2016-09-19 15:05 | PN ---
Date/Time of Note Date/Time of Note DATE: 09/19/16 TIME: 14:54 Assessment/Plan VTE Prophylaxis VTE Prophylaxis Intervention: SCD's Lines/Catheters IV [facility]from [facility] [place] Urinary Cath still in place: No Assessment/Plan Chief Complaint/Hosp Course ASSESSMENT AND PLAN: 1. GNR Urinary tract infection. Continue patient on Levaquin. Follow up on urine cultures. 2. Sepsis secondary to urinary tract infection. Continue IV fluids. 3. Elevated troponin on admission. Repeat cardiac enzymes series negative. Dr. King is following in cardiology consultation. 4. Hyponatremia secondary to dehydration and hyperkalemia on admission, resolving. 5. Cervical myelopathy by history. 6. Hypertension by history. 7. Acute encephalopathy, resolving. 8. Anemia. Dr. Hernandez is following from gastroenterology consultation. Pending endoscopy tomorrow. Dr. Ambrocio is following from hematology standpoint. 9. DNR status. Continue Protonix for peptic ulcer disease prophylaxis and Lovenox for deep venous thrombosis prophylaxis. Further recommendations based on clinical course. Plan of care discussed with Dr. King. Problems: Subjective 24 Hr Interval Summary Free Text/Dictation Patient is awake alert, no fever nausea vomiting reported, patient denies chest pain denies shortness of breath. Exam/Review of Systems Vital Signs Vitals Vital Signs Date Time Temp Pulse Resp B/P Pulse Ox O2 Delivery O2 Flow Rate FiO2 09/19/16 13:21 72 21 110/40 100 Room Air 09/19/16 12:52 98.6 10.0 Intake and Output 09/18/16 09/18/16 09/19/16 15:00 23:00 07:00 Intake Total 1530 ml 290 ml Balance 1530 ml 290 ml Exam GENERAL: Well-developed, well-nourished female, currently is awake, alert to name and situation. HEENT: Head is atraumatic, normocephalic. PERRLA. NECK: Supple, no cervical lymphadenopathy, no thyromegaly. CHEST: Lung sounds are slightly diminished at the bases with mild expiratory wheezes. CARDIOVASCULAR: Normal S1, S2. No murmurs, gallops, clicks, rubs noted. ABDOMEN: Round, soft, nondistended, nontender. Bowel sounds present. There is no guarding, no rebound tenderness. SKIN: There is no rash, petechiae noted. EXTREMITIES: No edema, clubbing, cyanosis. NEUROLOGIC: The patient is awake, alert to name and situation, otherwise confused. Results Result Diagram: 09/19/16 0505 09/19/16 0505 Results 24 hrs Laboratory Tests Test 09/18/16 18:45 09/19/16 00:25 09/19/16 05:05 09/19/16 14:25 Creatine Kinase 25 22 L Creatine Kinase Index 3.1 2.4 Creatinine Kinase MB (Mass) 0.78 0.52 Troponin I 0.036 0.047 Anion Gap 14 Basophils # 0.1 Basophils % 0.5 Blood Urea Nitrogen 18 Calcium Level 8.3 L Carbon Dioxide Level 24 Chloride Level 101 Creatinine 0.70 Eosinophils # 0.2 Eosinophils % 2.2 Glucose Level 81 Hematocrit 24.9 L Hemoglobin 8.4 L Lymphocytes # 2.3 Lymphocytes % 20.6 Mean Corpuscular Hemoglobin 32.0 Mean Corpuscular Hemoglobin Concent 33.5 Mean Corpuscular Volume 95.4 Mean Platelet Volume 7.5 Monocytes # 0.8 Monocytes % 7.3 Neutrophils # 7.7 H Neutrophils % 69.4 Nucleated Red Blood Cells # 0.0 Nucleated Red Blood Cells % 0.0 Platelet Count 402 Potassium Level 5.0 Red Blood Count 2.61 L Red Cell Distribution Width 13.6 Sodium Level 134 L White Blood Count 11.1 #H Absolute Reticulocyte Count 0.025 Percent Reticulocyte Count 0.9 Medications Medications Current Medications Acetaminophen (Tylenol Tab) 650 mg Q4H PRN PO PAIN AND OR ELEVATED TEMP Last administered on 09/18/16 20:52; Admin Dose 650 MG; Start 09/18/16 at 02:30 Acetaminophen (Tylenol Tab) 1,000 mg Q6H PRN PO PAIN LEVEL 4-6/10; Start at 02:30 Aspirin (Aspirin) 81 mg DAILY PO Last administered on 09/18/16 08:58; Admin Dose 81 MG; Start 09/18/16 at 09:00 Atorvastatin Calcium (Lipitor) 40 mg QHS PO Last administered on 09/18/16 20: 53; Admin Dose 40 MG; Start 09/18/16 at 21:00 Carbidopa/Levodopa (Sinemet (25/ 100)) 1 tab BID PO Last administered on 20:53; Admin Dose 1 TAB; Start 09/18/16 at 09:00 Cholecalciferol (Vitamin D) 1,000 unit DAILY PO Last administered on 09/18/16 08:57; Admin Dose 1,000 UNIT; Start 09/18/16 at 09:00 Docusate Sodium (Colace) 100 mg BID PO Last administered on 09/18/16 20:53; Admin Dose 100 MG; Start 09/18/16 at 09:00 Enoxaparin Sodium (Lovenox) 40 mg DAILY SC Last administered on 09/18/16 09:00 ; Admin Dose 40 MG; Start 09/18/16 at 09:00 Famotidine (Pepcid) 20 mg QAM PO Last administered on 09/18/16 08:58; Admin Dose 20 MG; Start 09/18/16 at 09:00 Gabapentin (Neurontin) 100 mg QHS PO Last administered on 09/18/16 20:53; Admin Dose 100 MG; Start 09/18/16 at 21:00 Acetaminophen/ Hydrocodone Bitart ([place] (5/325)) Q6 As needed for pain Q6 PRN PO PAIN 7-1010; Start 09/18/16 at 02:30 Al Hydrox/Mg Hydrox/Simethicone (Mag-Al Plus) 30 ml Q4 PO Last administered on 09/18/16 20:53; Admin Dose 30 ML; Start 09/18/16 at 05:00 Megestrol Acetate (Megace Susp) 400 mg DAILY PO Last administered on 09/18/16 08:58; Admin Dose 400 MG; Start 09/18/16 at 09:00 Metoprolol Tartrate (Lopressor) 25 mg BID PO Last administered on 09/18/16 20: 53; Admin Dose 25 MG; Start 09/18/16 at 09:00 Polyethylene Glycol (Miralax) 17 gm DAILY PO Last administered on 09/18/16 08: 59; Admin Dose 17 GM; Start 09/18/16 at 09:00 Senna (Senokot) 1 tab QHS PO Last administered on 09/18/16 20:52; Admin Dose 1 TAB; Start 09/18/16 at 21:00 Sodium Chloride (Nacl) 1 gm BID PO Last administered on 09/18/16 20:52; Admin Dose 1 GM; Start 09/18/16 at 09:00 Bisacodyl 10 mg 10 mg Q24H TX Last administered on 09/18/16 08:59; Admin Dose 10 MG; Start 09/18/16 at 09:00 Levofloxacin/ Dextrose (Levaquin 250 Mg/ D5W 50 ml (Pmx)) 50 ml @ 50 mls/hr Q24H IVPB Last administered on 09/19/16 04:08; Admin Dose 50 MLS/HR; Start 09/19 at 03:30 Losartan Potassium (Cozaar) 25 mg BID PO ; Start 09/19/16 at 09:00 ERMIAS TOBAR Sep 19, 2016 15:05
[2016-09-19] MEDS ORDERED: METOCLOPRAMIDE 10 MG INJ IV PRN (15:30)
[2016-09-19] MEDS ORDERED: PEG/ELECTROLYTES 4L BTL PO ONE (15:30)
--- NOTE | 2016-09-19 17:09 | CONS ---
Date/Time of Note Date/Time of Note DATE: 09/19/16 TIME: 17:05 Assessment/Plan Assessment/Plan Additional Assessment/Plan Sepsis secondary to UTI Mildly elevated troponin Preserved ejection fraction History of hypertension Dyslipidemia Parkinson's -Troponins are trending down, patient remains asymptomatic and elevated troponin likely secondary to sepsis. Would continue aspirin and statin therapy. Antibiotics as per infectious disease. Consultation Date/Type/Reason Admit Date/Time Sep 17, 2016 at 22:36 Initial Consult Date 09/19/16 Type of Consultation: cv Referring Provider: SUJATHA WILLETT MD 24 HR Interval Summary Free Text/Dictation Denies shortness of breath, chest pain or dizziness Exam/Review of Systems Vital Signs Vitals Vital Signs Date Time Temp Pulse Resp B/P Pulse Ox O2 Delivery O2 Flow Rate FiO2 09/19/16 13:21 72 21 110/40 100 Room Air 09/19/16 12:52 98.6 10.0 Intake and Output 09/18/16 09/18/16 09/19/16 15:00 23:00 07:00 Intake Total 1530 ml 290 ml Balance 1530 ml 290 ml Exam No apparent distress Constitutional: alert, oriented Head: normocephalic Neck: supple Respiratory: other (course breath sounds bilaterally, no wheezing) Cardiovascular: other (S1-S2 heard), regular rate and rhythm Gastrointestinal: bowel sounds, non-tender, soft Extremities: edema Results Result Diagram: 09/19/16 0505 09/19/16 0505 Results 24 hrs Laboratory Tests Test 09/18/16 18:45 09/19/16 00:25 09/19/16 05:05 09/19/16 14:25 Creatine Kinase 25 22 L Creatine Kinase Index 3.1 2.4 Creatinine Kinase MB (Mass) 0.78 0.52 Troponin I 0.036 0.047 Anion Gap 14 Basophils # 0.1 Basophils % 0.5 Blood Urea Nitrogen 18 Calcium Level 8.3 L Carbon Dioxide Level 24 Chloride Level 101 Creatinine 0.70 Eosinophils # 0.2 Eosinophils % 2.2 Glucose Level 81 Hematocrit 24.9 L Hemoglobin 8.4 L Lymphocytes # 2.3 Lymphocytes % 20.6 Mean Corpuscular Hemoglobin 32.0 Mean Corpuscular Hemoglobin Concent 33.5 Mean Corpuscular Volume 95.4 Mean Platelet Volume 7.5 Monocytes # 0.8 Monocytes % 7.3 Neutrophils # 7.7 H Neutrophils % 69.4 Nucleated Red Blood Cells # 0.0 Nucleated Red Blood Cells % 0.0 Platelet Count 402 Potassium Level 5.0 Red Blood Count 2.61 L Red Cell Distribution Width 13.6 Sodium Level 134 L White Blood Count 11.1 #H Absolute Reticulocyte Count 0.025 Ferritin 788.0 H Folate Pending Iron Level 34 L Lactate Dehydrogenase 526 Percent Iron Saturation 17 L Percent Reticulocyte Count 0.9 Total Iron Binding Capacity 200 L Vitamin B12 Level 847 Medications Medications Current Medications Acetaminophen (Tylenol Tab) 650 mg Q4H PRN PO PAIN AND OR ELEVATED TEMP Last administered on 09/18/16 20:52; Admin Dose 650 MG; Start 09/18/16 at 02:30 Acetaminophen (Tylenol Tab) 1,000 mg Q6H PRN PO PAIN LEVEL 4-6/10; Start at 02:30 Aspirin (Aspirin) 81 mg DAILY PO Last administered on 09/18/16 08:58; Admin Dose 81 MG; Start 09/18/16 at 09:00 Atorvastatin Calcium (Lipitor) 40 mg QHS PO Last administered on 09/18/16 20: 53; Admin Dose 40 MG; Start 09/18/16 at 21:00 Carbidopa/Levodopa (Sinemet (25/ 100)) 1 tab BID PO Last administered on 20:53; Admin Dose 1 TAB; Start 09/18/16 at 09:00 Cholecalciferol (Vitamin D) 1,000 unit DAILY PO Last administered on 09/18/16 08:57; Admin Dose 1,000 UNIT; Start 09/18/16 at 09:00 Docusate Sodium (Colace) 100 mg BID PO Last administered on 09/18/16 20:53; Admin Dose 100 MG; Start 09/18/16 at 09:00 Enoxaparin Sodium (Lovenox) 40 mg DAILY SC Last administered on 09/18/16 09:00 ; Admin Dose 40 MG; Start 09/18/16 at 09:00 Famotidine (Pepcid) 20 mg QAM PO Last administered on 09/18/16 08:58; Admin Dose 20 MG; Start 09/18/16 at 09:00 Gabapentin (Neurontin) 100 mg QHS PO Last administered on 09/18/16 20:53; Admin Dose 100 MG; Start 09/18/16 at 21:00 Acetaminophen/ Hydrocodone Bitart ([place] (5/325)) Q6 As needed for pain Q6 PRN PO PAIN 7-05/28; Start 09/18/16 at 02:30 Al Hydrox/Mg Hydrox/Simethicone (Mag-Al Plus) 30 ml Q4 PO Last administered on 09/18/16 20:53; Admin Dose 30 ML; Start 09/18/16 at 05:00 Megestrol Acetate (Megace Susp) 400 mg DAILY PO Last administered on 09/18/16 08:58; Admin Dose 400 MG; Start 09/18/16 at 09:00 Metoprolol Tartrate (Lopressor) 25 mg BID PO Last administered on 09/18/16 20: 53; Admin Dose 25 MG; Start 09/18/16 at 09:00 Polyethylene Glycol (Miralax) 17 gm DAILY PO Last administered on 09/18/16 08: 59; Admin Dose 17 GM; Start 09/18/16 at 09:00 Senna (Senokot) 1 tab QHS PO Last administered on 09/18/16 20:52; Admin Dose 1 TAB; Start 09/18/16 at 21:00 Sodium Chloride (Nacl) 1 gm BID PO Last administered on 09/18/16 20:52; Admin Dose 1 GM; Start 09/18/16 at 09:00 Bisacodyl 10 mg 10 mg Q24H AR Last administered on 09/18/16 08:59; Admin Dose 10 MG; Start 09/18/16 at 09:00 Levofloxacin/ Dextrose (Levaquin 250 Mg/ D5W 50 ml (Pmx)) 50 ml @ 50 mls/hr Q24H IVPB Last administered on 09/19/16 04:08; Admin Dose 50 MLS/HR; Start 09/19 at 03:30 Losartan Potassium (Cozaar) 25 mg BID PO ; Start 09/19/16 at 09:00 Metoclopramide HCl 10 mg 10 mg Q4H PRN IV NAUSEA; Start 09/19/16 at 15:30 Potassium Chloride/Dextrose (KCl/D5W) 265 ml @ 88.333 mls/ hr ONCE ONCE IVPB ; Start 09/20/16 at 08:00; Stop 09/20/16 at 10:59 Israel King DO Sep 19, 2016 17:09
--- NOTE | 2016-09-19 19:09 | RADRPT ---
PROCEDURE: CR, chest CLINICAL INDICATION: NG placement. TECHNIQUE: AP chest. COMPARISON: Chest, 09/17/2016. FINDINGS: The heart is not enlarged. There is no acute infiltrate in the lungs. No pleural effusion. The ti p of the NG tube is in the stomach. IMPRESSION: 1. Unremarkable chest x-ray. 2. NG tube in place. RPTAT: GG .Desmond Pat MD, MD Date Time Electronically viewed and signed by .Desmond Pat MD, MD on 09/19/2016 19:09 .Y/
--- NOTE | 2016-09-19 19:53 | GILP ---
DATE OF PROCEDURE: NAME OF PROCEDURE: Esophagogastroduodenoscopy. PREOPERATIVE DIAGNOSIS: The patient history of severe anemia, rule out peptic ulcer disease, rule o ut gastritis. POSTOPERATIVE DIAGNOSES: Fundal gastritis of milder degree. Rest of the stomach, esophagus and duo denum appeared normal. DESCRIPTION OF PROCEDURE: After the informed written consent was obtained, the patient was asked to lie on the left lateral side. The patient was given intravenous anesthesia by anesthesiologist. W hen the patient became somnolent, the Olympus video upper endoscope was introduced into the orophary nx, then into the esophagus. Esophagus appeared normal with no mucosal abnormality. Endoscope at t his time was advanced into the stomach. Several areas of erythema noted in the gastric fundus with no ulcers, no neoplasm. The rest of the stomach appeared normal. Duodenum appeared normal up to th e end of the third portion. At this time, scope was withdrawn after doing the biopsy from the antru m, lesser curvature and the fundus for H. pylori infection. No additional findings noted and the pr ocedure was terminated. PLAN: Recommend proton pump inhibitor therapy and recommend colonoscopy. Dictated By: ALYSON TURCIOS/NTS Conf#: [id number] DID#: [id number] CC: SUJATHA WILLETT MD;*[facility]*
[2016-09-19] MEDS: GABAPENTIN 100 MG CAP PO SCH (21:10)
[2016-09-19] MEDS: LOSARTAN 25 MG TAB PO SCH (21:10)
[2016-09-19] MEDS: ATORVASTATIN 40 MG TAB PO SCH (21:10)
[2016-09-19] MEDS: SENNA TAB PO SCH (21:10)
[2016-09-20] VITALS (11 sets, daily range): BP systolic 118–152; BP diastolic 43–65; PULSE 76–87; RESP 18–24
[2016-09-20] MEDS: AL HYDROX/MG HYDROX/SIMETH 30 ML CUP PO SCH ×6 (01:00→20:59)
[2016-09-20] MEDS: LEVOFLOXACIN 250MG/D5W (PMX) 50 ML IVPB SCH (03:29)
[2016-09-20 05:38] LABS: BASOPHILS % 0.3 % (0.0-2.0); EOSINOPHILS # 0.2 10^3/ul (0.0-0.5); EOSINOPHILS % 2.3 % (0.0-7.0); HEMATOCRIT 28.8 % (37.0-47.0); HEMOGLOBIN 9.8 g/dl (12.0-16.0); LYMPHOCYTES # 2.1 10^3/ul (0.8-2.9); LYMPHOCYTES % 20.9 % (15.0-51.0); MEAN CORPUSCULAR HEMOGLOBIN 32.1 pg (29.0-33.0); MEAN CORPUSCULAR HGB CONC 33.9 g/dl (32.0-37.0); MEAN CORPUSCULAR VOLUME 94.6 fl (82.0-101.0); MEAN PLATELET VOLUME 6.7 fl (7.4-10.4); MONOCYTE # 0.7 10^3/ul (0.3-0.9); NEUTROPHIL # 6.9 10^3/ul (1.6-7.5); NEUTROPHILS % 69.5 % (39.0-77.0); PLATELET COUNT 503 10^3/UL (140-440); RED BLOOD COUNT 3.05 10^6/ul (4.20-5.40); RED CELL DISTRIBUTION WIDTH 13.4 % (11.5-14.5)
[2016-09-20 06:23] LABS: POTASSIUM 5.2 mmol/L (3.5-5.1)
[2016-09-20 06:26] LABS: CALCIUM 8.7 mg/dl (8.4-10.2); CREATININE 0.64 mg/dl (0.44-1.00)
[2016-09-20 06:56] LABS: CONDITION 1
[2016-09-20] MEDS ORDERED: LIDOCAINE 2% (SDV) 5 ML INJ ONE (07:00)
[2016-09-20] MEDS ORDERED: POTASSIUM CHLORIDE 30 MEQ in DEXTROSE 5% 250 ML IVPB ONE (08:00)
[2016-09-20] MEDS: POLYETHYLENE GLYCOL 17 GM PACKET PO SCH (09:00)
[2016-09-20] MEDS: BISACODYL 10 MG SUPP PR SCH (09:00)
[2016-09-20] MEDS: ASPIRIN 81 MG TAB PO SCH (09:00)
[2016-09-20] MEDS: FAMOTIDINE 20 MG TAB PO SCH (09:00)
[2016-09-20] MEDS: ENOXAPARIN 40 MG/0.4 ML SYG SC SCH (09:00)
[2016-09-20] MEDS: CHOLECALCIFEROL 1,000 UNIT TAB PO SCH (09:00)
[2016-09-20] MEDS: METOPROLOL 25 MG TAB PO SCH ×2 (09:00→20:59)
[2016-09-20] MEDS: LOSARTAN 25 MG TAB PO SCH ×2 (09:00→20:58)
[2016-09-20] MEDS: DOCUSATE SODIUM 100 MG CAP PO SCH ×2 (09:00→20:58)
[2016-09-20] MEDS: SODIUM CHLORIDE 1 GM TAB PO SCH ×2 (09:00→20:59)
[2016-09-20] MEDS: MEGESTROL (40 MG/ML) 10ML CUP PO SCH (09:00)
[2016-09-20] MEDS: CARBIDOPA/LEVODOPA (25/100) TAB PO SCH ×2 (09:00→21:00)
--- NOTE | 2016-09-20 15:14 | CONS ---
Date/Time of Note Date/Time of Note DATE: 09/20/16 TIME: 15:11 Assessment/Plan Assessment/Plan Chief Complaint/Hosp Course 85-year-old female from nursing facility who was transferred to our facility secondary to fevers, and currently being treated for sepsis with antibiotics. During her hospitalization patient has become more anemic. Anemia panel demonstrates a normal LDH which makes hemolysis unlikely. also Vitamin b12 and folate are normal. Iron panel suggests chronic inflammation with mild iron deficiency anemia. -will start Ferrlecit 125mg IV x 3 days -agree with proton pump inhibitor for gastritis which may be contributing to occult blood loss Approximately 40 min were spent Problems: Consultation Date/Type/Reason Admit Date/Time Sep 17, 2016 at 22:36 Initial Consult Date 09/19/16 Type of Consultation: anemia Reason for Consultation anemia Referring Provider: SUJATHA WILLETT MD 24 HR Interval Summary Free Text/Dictation patient underwent EGD which revealed gastritis Exam/Review of Systems Vital Signs Vitals Vital Signs Date Time Temp Pulse Resp B/P Pulse Ox O2 Delivery O2 Flow Rate FiO2 09/20/16 14:58 80 20 129/54 100 Room Air 09/20/16 14:48 98.2 09/19/16 12:52 10.0 Intake and Output 09/19/16 09/19/16 09/20/16 15:00 23:00 07:00 Intake Total 2060 ml 2230 ml Output Total 2 ml Balance 2060 ml 2228 ml Exam Constitutional: frail Psych: confusion Head: atraumatic, normocephalic ENMT: nl external ears & nose Neck: non-tender, supple Respiratory: clear to auscultation, normal air movement Cardiovascular: nl pulses, regular rate and rhythm Gastrointestinal: soft Musculoskeletal: nl extremities to inspection, nl gait and stance Extremities: normal pulses Results Result Diagram: 09/20/16 0520 09/20/16 0520 Results 24 hrs Laboratory Tests Test 09/20/16 05:20 Anion Gap 18 H Basophils # 0.0 Basophils % 0.3 Blood Morphology Comment Blood Urea Nitrogen 16 Calcium Level 8.7 Carbon Dioxide Level 22 Chloride Level 101 Creatinine 0.64 Eosinophils # 0.2 Eosinophils % 2.3 Glucose Level 79 Hematocrit 28.8 L Hemoglobin 9.8 L Lymphocytes # 2.1 Lymphocytes % 20.9 Mean Corpuscular Hemoglobin 32.1 Mean Corpuscular Hemoglobin Concent 33.9 Mean Corpuscular Volume 94.6 Mean Platelet Volume 6.7 L Monocytes # 0.7 Monocytes % 7.0 Neutrophils # 6.9 Neutrophils % 69.5 Nucleated Red Blood Cells # 0.0 Nucleated Red Blood Cells % 0.0 Platelet Count 503 #H Potassium Level 5.2 H Red Blood Count 3.05 L Red Cell Distribution Width 13.4 Sodium Level 136 White Blood Count 10.0 Medications Medications Current Medications Acetaminophen (Tylenol Tab) 650 mg Q4H PRN PO PAIN AND OR ELEVATED TEMP Last administered on 09/18/16 20:52; Admin Dose 650 MG; Start 09/18/16 at 02:30 Acetaminophen (Tylenol Tab) 1,000 mg Q6H PRN PO PAIN LEVEL 4-6/10; Start at 02:30 Aspirin (Aspirin) 81 mg DAILY PO Last administered on 09/18/16 08:58; Admin Dose 81 MG; Start 09/18/16 at 09:00 Atorvastatin Calcium (Lipitor) 40 mg QHS PO Last administered on 09/19/16 21:10 ; Admin Dose 40 MG; Start 09/18/16 at 21:00 Carbidopa/Levodopa (Sinemet (25/ 100)) 1 tab BID PO Last administered on 21:10; Admin Dose 1 TAB; Start 09/18/16 at 09:00 Cholecalciferol (Vitamin D) 1,000 unit DAILY PO Last administered on 09/18/16 08:57; Admin Dose 1,000 UNIT; Start 09/18/16 at 09:00 Docusate Sodium (Colace) 100 mg BID PO Last administered on 09/19/16 21:10; Admin Dose 100 MG; Start 09/18/16 at 09:00 Enoxaparin Sodium (Lovenox) 40 mg DAILY SC Last administered on 09/18/16 09:00 ; Admin Dose 40 MG; Start 09/18/16 at 09:00 Famotidine (Pepcid) 20 mg QAM PO Last administered on 09/18/16 08:58; Admin Dose 20 MG; Start 09/18/16 at 09:00 Gabapentin (Neurontin) 100 mg QHS PO Last administered on 09/19/16 21:10; Admin Dose 100 MG; Start 09/18/16 at 21:00 Acetaminophen/ Hydrocodone Bitart ([place] (5/325)) Q6 As needed for pain Q6 PRN PO PAIN 7-05/28; Start 09/18/16 at 02:30 Al Hydrox/Mg Hydrox/Simethicone (Mag-Al Plus) 30 ml Q4 PO Last administered on 09/19/16 21:11; Admin Dose 30 ML; Start 09/18/16 at 05:00 Megestrol Acetate (Megace Susp) 400 mg DAILY PO Last administered on 09/18/16 08:58; Admin Dose 400 MG; Start 09/18/16 at 09:00 Metoprolol Tartrate (Lopressor) 25 mg BID PO Last administered on 09/19/16 21: 11; Admin Dose 25 MG; Start 09/18/16 at 09:00 Polyethylene Glycol (Miralax) 17 gm DAILY PO Last administered on 09/18/16 08: 59; Admin Dose 17 GM; Start 09/18/16 at 09:00 Senna (Senokot) 1 tab QHS PO Last administered on 09/19/16 21:10; Admin Dose 1 TAB; Start 09/18/16 at 21:00 Sodium Chloride (Nacl) 1 gm BID PO Last administered on 09/19/16 21:10; Admin Dose 1 GM; Start 09/18/16 at 09:00 Bisacodyl 10 mg 10 mg Q24H MD Last administered on 09/18/16 08:59; Admin Dose 10 MG; Start 09/18/16 at 09:00 Levofloxacin/ Dextrose (Levaquin 250 Mg/ D5W 50 ml (Pmx)) 50 ml @ 50 mls/hr Q24H IVPB Last administered on 09/20/16 03:29; Admin Dose 50 MLS/HR; Start 09/19 at 03:30 Metoclopramide HCl (Reglan) 10 mg Q4H PRN IV NAUSEA; Start 09/19/16 at 15:30 Losartan Potassium (Cozaar) 12.5 mg BID PO Last administered on 09/19/16 21:10 ; Admin Dose 12.5 MG; Start 09/19/16 at 21:00 AIDA GABRIEL M.D. Sep 20, 2016 15:14
[2016-09-20] MEDS: SOD FERRIC GLUC COMPLX 125 MG in SOD CHLORIDE 0.9% 100 ML IVPB SCH (18:14)
[2016-09-20] MEDS: ACETAMINOPHEN 325 MG TAB PO PRN (18:25)
--- NOTE | 2016-09-20 18:57 | PN ---
Date/Time of Note Date/Time of Note DATE: 09/20/16 TIME: 18:57 Assessment/Plan VTE Prophylaxis VTE Prophylaxis Intervention: other Lines/Catheters IV C[facility]ter Type (from [facility] Lock Urinary Cath still in place: No Assessment/Plan Assessment/Plan DO NOT RESUSCITATE 1. GNR Urinary tract infection with MORGANELLA MORGANII SSP MORG. and K PNEUMMO ESBL - Continue patient on Levaquin. 2. Sepsis secondary to urinary tract infection. Continue IV fluids. 3. Elevated troponin on admission. - Repeat cardiac enzymes series negative. - Dr. King is following in cardiology consultation. 4. Hyponatremia secondary to dehydration and hyperkalemia on admission, resolving. 5. Cervical myelopathy by history. 6. Hypertension by history. 7. Acute encephalopathy, resolving. 8. Anemia. - per Dr. Tomas from gastroenterology consultation. - Pending endoscopy. - per Dr. Ambrocio is following from hematology standpoint. 9.Hyperkalemia- give Kayexalate, am BMP Continue Protonix for peptic ulcer disease prophylaxis and Lovenox for deep venous thrombosis prophylaxis. Further recommendations based on clinical course. Plan of care discussed with Dr. King. Exam/Review of Systems Vital Signs Vitals Vital Signs Date Time Temp Pulse Resp B/P Pulse Ox O2 Delivery O2 Flow Rate FiO2 09/20/16 15:23 76 22 122/43 100 Room Air 09/20/16 14:48 98.2 09/19/16 12:52 10.0 Intake and Output 09/19/16 09/19/16 09/20/16 15:00 23:00 07:00 Intake Total 2060 ml 2230 ml Output Total 2 ml Balance 2060 ml 2228 ml Exam Constitutional: frail Eyes: nl sclera ENMT: nl external ears & nose Neck: non-tender Respiratory: diminished breath sounds Gastrointestinal: non-tender, other, soft Musculoskeletal: muscle weakness Extremities: normal pulses Neurological: confused Skin: other Lymph: nontender Results Result Diagram: 09/20/16 0520 09/20/16 0520 Results 24 hrs Laboratory Tests Test 09/20/16 05:20 Anion Gap 18 H Basophils # 0.0 Basophils % 0.3 Blood Morphology Comment Blood Urea Nitrogen 16 Calcium Level 8.7 Carbon Dioxide Level 22 Chloride Level 101 Creatinine 0.64 Eosinophils # 0.2 Eosinophils % 2.3 Glucose Level 79 Hematocrit 28.8 L Hemoglobin 9.8 L Lymphocytes # 2.1 Lymphocytes % 20.9 Mean Corpuscular Hemoglobin 32.1 Mean Corpuscular Hemoglobin Concent 33.9 Mean Corpuscular Volume 94.6 Mean Platelet Volume 6.7 L Monocytes # 0.7 Monocytes % 7.0 Neutrophils # 6.9 Neutrophils % 69.5 Nucleated Red Blood Cells # 0.0 Nucleated Red Blood Cells % 0.0 Platelet Count 503 #H Potassium Level 5.2 H Red Blood Count 3.05 L Red Cell Distribution Width 13.4 Sodium Level 136 White Blood Count 10.0 Medications Medications Current Medications Acetaminophen (Tylenol Tab) 650 mg Q4H PRN PO PAIN AND OR ELEVATED TEMP Last administered on 09/20/16 18:25; Admin Dose 650 MG; Start 09/18/16 at 02:30 Acetaminophen (Tylenol Tab) 1,000 mg Q6H PRN PO PAIN LEVEL 4-6/10; Start at 02:30 Aspirin (Aspirin) 81 mg DAILY PO Last administered on 09/18/16 08:58; Admin Dose 81 MG; Start 09/18/16 at 09:00 Atorvastatin Calcium (Lipitor) 40 mg QHS PO Last administered on 09/19/16 21:10 ; Admin Dose 40 MG; Start 09/18/16 at 21:00 Carbidopa/Levodopa (Sinemet (25/ 100)) 1 tab BID PO Last administered on 21:10; Admin Dose 1 TAB; Start 09/18/16 at 09:00 Cholecalciferol (Vitamin D) 1,000 unit DAILY PO Last administered on 09/18/16 08:57; Admin Dose 1,000 UNIT; Start 09/18/16 at 09:00 Docusate Sodium (Colace) 100 mg BID PO Last administered on 09/19/16 21:10; Admin Dose 100 MG; Start 09/18/16 at 09:00 Enoxaparin Sodium (Lovenox) 40 mg DAILY SC Last administered on 09/18/16 09:00 ; Admin Dose 40 MG; Start 09/18/16 at 09:00 Famotidine (Pepcid) 20 mg QAM PO Last administered on 09/18/16 08:58; Admin Dose 20 MG; Start 09/18/16 at 09:00 Gabapentin (Neurontin) 100 mg QHS PO Last administered on 09/19/16 21:10; Admin Dose 100 MG; Start 09/18/16 at 21:00 Acetaminophen/ Hydrocodone Bitart ([place] (5/325)) Q6 As needed for pain Q6 PRN PO PAIN 7-10; Start 09/18/16 at 02:30 Al Hydrox/Mg Hydrox/Simethicone (Mag-Al Plus) 30 ml Q4 PO Last administered on 09/20/16 17:39; Admin Dose 30 ML; Start 09/18/16 at 05:00 Megestrol Acetate (Megace Susp) 400 mg DAILY PO Last administered on 09/18/16 08:58; Admin Dose 400 MG; Start 09/18/16 at 09:00 Metoprolol Tartrate (Lopressor) 25 mg BID PO Last administered on 09/19/16 21: 11; Admin Dose 25 MG; Start 09/18/16 at 09:00 Polyethylene Glycol (Miralax) 17 gm DAILY PO Last administered on 09/18/16 08: 59; Admin Dose 17 GM; Start 09/18/16 at 09:00 Senna (Senokot) 1 tab QHS PO Last administered on 09/19/16 21:10; Admin Dose 1 TAB; Start 09/18/16 at 21:00 Sodium Chloride (Nacl) 1 gm BID PO Last administered on 09/19/16 21:10; Admin Dose 1 GM; Start 09/18/16 at 09:00 Bisacodyl 10 mg 10 mg Q24H CO Last administered on 09/18/16 08:59; Admin Dose 10 MG; Start 09/18/16 at 09:00 Levofloxacin/ Dextrose (Levaquin 250 Mg/ D5W 50 ml (Pmx)) 50 ml @ 50 mls/hr Q24H IVPB Last administered on 09/20/16 03:29; Admin Dose 50 MLS/HR; Start 09/19 at 03:30 Metoclopramide HCl (Reglan) 10 mg Q4H PRN IV NAUSEA; Start 09/19/16 at 15:30 Losartan Potassium 12.5 mg 12.5 mg BID PO Last administered on 09/19/16 21:10; Admin Dose 12.5 MG; Start 09/19/16 at 21:00 Ferric Sodium Gluconate Complex/ Sodium Chloride (Ferrlecit/NS) 110 ml @ 100 mls/hr Q24H IVPB Last administered on 09/20/16t 18:14; Admin Dose 100 MLS/HR; Start 09/20/16 at 17:00; Stop 09/22/16 at 18:05 Zolpidem Tartrate (Ambien) 5 mg HS PRN PO INSOMNIA; Start 09/20/16 at 18:30 Procedures Procedures urine c/s- URINE CULTURE Final MORGANELLA MORGANII SSP MORG. >100,000 CFU/ml K PNEUMO ESBL 50,000 - 60,000 CFU/ml . [employer] ABBY JOEL Sep 20, 2016 18:57
[2016-09-20] MEDS ORDERED: NA POLYST SULFON 15 GM/60 ML BTL PO ONE (19:00)
[2016-09-20] MEDS: ATORVASTATIN 40 MG TAB PO SCH (20:59)
[2016-09-20] MEDS: GABAPENTIN 100 MG CAP PO SCH (20:59)
[2016-09-20] MEDS: ZOLPIDEM 5 MG TAB PO PRN (21:00)
[2016-09-20] MEDS: SENNA TAB PO SCH (21:00)
[2016-09-21] MEDS: AL HYDROX/MG HYDROX/SIMETH 30 ML CUP PO SCH ×6 (01:13→20:53)
--- NOTE | 2016-09-21 02:54 | GILP ---
DATE OF PROCEDURE: PROCEDURE: Colonoscopy. PREOPERATIVE DIAGNOSES: The patient presenting with history of severe anemia with dropping hemoglob in, rule out colorectal neoplasm, arteriovenous malformation, diverticulosis, etc. POSTOPERATIVE DIAGNOSES: 1. Diffuse diverticulosis. 2. A 2 cm lobulated sessile polyp noted at 18 cm from the anus. Biopsy was done. 3. A 3 mm flat polyp was noted in the mid transverse colon. This was removed with a cold biopsy fo rceps. DESCRIPTION OF PROCEDURE: After informed written consent was obtained, the patient was asked to lie on the left lateral side. Intravenous anesthesia was given by anesthesiologist, Dr. Licea. Wh en the patient became somnolent, the Olympus video colonoscope was introduced into the rectum and sc ope was advanced all the way to the cecum. Entire colon was examined, which showed evidence of a 2 cm lobulated polyp at 18 cm from the anus. Multiple biopsies were obtained. A 3 mm flat polyp was noted in the mid transverse colon. This was biopsied. Diverticulosis noted all over the colon. Th e scope was withdrawn from the cecum. No additional abnormalities detected and the procedure was te rminated. PLAN: Recommend wait for the pathology report. Dictated By: ALYSON TURCIOS/JOSEPH Conf#: [id number] DID#: [id number] CC: SUJATHA WILLETT MD;*[facility]*
[2016-09-21] MEDS: LEVOFLOXACIN 250MG/D5W (PMX) 50 ML IVPB SCH (03:16)
[2016-09-21 04:42] LABS: PROTEIN, TOTAL 6.6 g/dL (6.1-8.1)
[2016-09-21 05:27] LABS: BASOPHILS % 0.2 % (0.0-2.0); EOSINOPHILS # 0.2 10^3/ul (0.0-0.5); EOSINOPHILS % 2.6 % (0.0-7.0); HEMOGLOBIN 9.7 g/dl (12.0-16.0); LYMPHOCYTES # 2.1 10^3/ul (0.8-2.9); LYMPHOCYTES % 22.5 % (15.0-51.0); MEAN CORPUSCULAR HEMOGLOBIN 32.5 pg (29.0-33.0); MEAN CORPUSCULAR HGB CONC 34.5 g/dl (32.0-37.0); MEAN CORPUSCULAR VOLUME 94.3 fl (82.0-101.0); MEAN PLATELET VOLUME 6.7 fl (7.4-10.4); MONOCYTE # 0.8 10^3/ul (0.3-0.9); MONOCYTES % 8.8 % (0.0-11.0); NEUTROPHIL # 6.3 10^3/ul (1.6-7.5); NEUTROPHILS % 65.9 % (39.0-77.0); PLATELET COUNT 525 10^3/UL (140-440); RED BLOOD COUNT 2.97 10^6/ul (4.20-5.40); RED CELL DISTRIBUTION WIDTH 13.4 % (11.5-14.5); UNCORRECTED WBC 9.5 10^3/ul (4.8-10.8); WHITE BLOOD COUNT 9.5 10^3/ul (4.8-10.8)
[2016-09-21 05:34] LABS: POTASSIUM 4.3 mmol/L (3.5-5.1)
[2016-09-21 05:37] LABS: CREATININE 0.67 mg/dl (0.44-1.00)
[2016-09-21 05:38] LABS: CALCIUM 8.8 mg/dl (8.4-10.2)
[2016-09-21 06:27] LABS: CONDITION 1
[2016-09-21 07:30] VITALS: BP 140/76; RESP 18
[2016-09-21 08:36] LABS: FOLATE 11.1 ng/ml (2.8-20.0)
[2016-09-21] MEDS: MEGESTROL (40 MG/ML) 10ML CUP PO SCH (09:54)
[2016-09-21] MEDS: ENOXAPARIN 40 MG/0.4 ML SYG SC SCH (09:54)
[2016-09-21] MEDS: POLYETHYLENE GLYCOL 17 GM PACKET PO SCH (09:54)
[2016-09-21] MEDS: CHOLECALCIFEROL 1,000 UNIT TAB PO SCH (09:55)
[2016-09-21] MEDS: SODIUM CHLORIDE 1 GM TAB PO SCH ×2 (09:55→20:53)
[2016-09-21] MEDS: FAMOTIDINE 20 MG TAB PO SCH (09:55)
[2016-09-21] MEDS: BISACODYL 10 MG SUPP PR SCH (09:55)
[2016-09-21] MEDS: DOCUSATE SODIUM 100 MG CAP PO SCH ×2 (09:55→20:51)
[2016-09-21] MEDS: METOPROLOL 25 MG TAB PO SCH ×2 (09:56→20:52)
[2016-09-21] MEDS: CARBIDOPA/LEVODOPA (25/100) TAB PO SCH ×2 (09:56→20:53)
[2016-09-21] MEDS: LOSARTAN 25 MG TAB PO SCH ×2 (09:56→20:52)
[2016-09-21] MEDS: ASPIRIN 81 MG TAB PO SCH (09:57)
--- NOTE | 2016-09-21 11:41 | CONS ---
Date/Time of Note Date/Time of Note DATE: 09/21/16 TIME: 11:39 Assessment/Plan Assessment/Plan Additional Assessment/Plan Sepsis secondary to UTI Mildly elevated troponin Preserved ejection fraction History of hypertension Dyslipidemia Parkinson's Anemia -Patient status post colonoscopy with polyps found, awaiting pathology report. Blood pressure remained stable. Continue statin, beta tyler. Would continue aspirin if no contraindication, but if concern of GI bleed, would stop aspirin. Consultation Date/Type/Reason Admit Date/Time Sep 17, 2016 at 22:36 Initial Consult Date 09/19/16 Type of Consultation: cv Referring Provider: SUJATHA WILLETT MD 24 HR Interval Summary Free Text/Dictation Denies chest pain, shortness of breath, asking to go home Exam/Review of Systems Vital Signs Vitals Vital Signs Date Time Temp Pulse Resp B/P Pulse Ox O2 Delivery O2 Flow Rate FiO2 09/21/16 07:30 97.6 76 18 140/76 94 09/20/16 15:23 Room Air 09/19/16 12:52 10.0 Intake and Output 09/20/16 09/20/16 09/21/16 15:00 23:00 07:00 Intake Total 230 ml 400 ml Balance 230 ml 400 ml Exam Follows commands, no apparent distress Constitutional: alert, oriented Head: normocephalic Neck: supple Respiratory: other (course breath sounds bilaterally, no wheezing) Cardiovascular: other (S1 and S2 heard), regular rate and rhythm Gastrointestinal: bowel sounds, non-tender, soft Extremities: edema (trace) Results Result Diagram: 09/21/16 0445 09/21/16 0445 Results 24 hrs Laboratory Tests Test 09/21/16 04:45 Anion Gap 18 H Basophils # 0.0 Basophils % 0.2 Blood Morphology Comment Blood Urea Nitrogen 21 H Calcium Level 8.8 Carbon Dioxide Level 22 Chloride Level 102 Creatinine 0.67 Eosinophils # 0.2 Eosinophils % 2.6 Glucose Level 90 Hematocrit 28.0 L Hemoglobin 9.7 L Lymphocytes # 2.1 Lymphocytes % 22.5 Mean Corpuscular Hemoglobin 32.5 Mean Corpuscular Hemoglobin Concent 34.5 Mean Corpuscular Volume 94.3 Mean Platelet Volume 6.7 L Monocytes # 0.8 Monocytes % 8.8 Neutrophils # 6.3 Neutrophils % 65.9 Nucleated Red Blood Cells # 0.0 Nucleated Red Blood Cells % 0.0 Platelet Count 525 H Potassium Level 4.3 Red Blood Count 2.97 L Red Cell Distribution Width 13.4 Sodium Level 138 White Blood Count 9.5 Medications Medications Current Medications Acetaminophen (Tylenol Tab) 650 mg Q4H PRN PO PAIN AND OR ELEVATED TEMP Last administered on 09/20/16 18:25; Admin Dose 650 MG; Start 09/18/16 at 02:30 Acetaminophen (Tylenol Tab) 1,000 mg Q6H PRN PO PAIN LEVEL 4-6/10; Start at 02:30 Aspirin (Aspirin) 81 mg DAILY PO Last administered on 09/21/16 09:57; Admin Dose 81 MG; Start 09/18/16 at 09:00 Atorvastatin Calcium (Lipitor) 40 mg QHS PO Last administered on 09/20/16 20:59 ; Admin Dose 40 MG; Start 09/18/16 at 21:00 Carbidopa/Levodopa (Sinemet (25/ 100)) 1 tab BID PO Last administered on 09:56; Admin Dose 1 TAB; Start 09/18/16 at 09:00 Cholecalciferol (Vitamin D) 1,000 unit DAILY PO Last administered on 09/21/16 09:55; Admin Dose 1,000 UNIT; Start 09/18/16 at 09:00 Docusate Sodium (Colace) 100 mg BID PO Last administered on 09/21/16 09:55; Admin Dose 100 MG; Start 09/18/16 at 09:00 Enoxaparin Sodium (Lovenox) 40 mg DAILY SC Last administered on 09/21/16 09:54 ; Admin Dose 40 MG; Start 09/18/16 at 09:00 Famotidine (Pepcid) 20 mg QAM PO Last administered on 09/21/16 09:55; Admin Dose 20 MG; Start 09/18/16 at 09:00 Gabapentin (Neurontin) 100 mg QHS PO Last administered on 09/20/16 20:59; Admin Dose 100 MG; Start 09/18/16 at 21:00 Acetaminophen/ Hydrocodone Bitart ([place] (5/325)) Q6 As needed for pain Q6 PRN PO PAIN 7-10/10; Start 09/18/16 at 02:30 Al Hydrox/Mg Hydrox/Simethicone (Mag-Al Plus) 30 ml Q4 PO Last administered on 09/21/16 09:55; Admin Dose 30 ML; Start 09/18/16 at 05:00 Megestrol Acetate (Megace Susp) 400 mg DAILY PO Last administered on 09/21/16 09:54; Admin Dose 400 MG; Start 09/18/16 at 09:00 Metoprolol Tartrate (Lopressor) 25 mg BID PO Last administered on 09/21/16 09: 56; Admin Dose 25 MG; Start 09/18/16 at 09:00 Polyethylene Glycol (Miralax) 17 gm DAILY PO Last administered on 09/21/16 09: 54; Admin Dose 17 GM; Start 09/18/16 at 09:00 Senna (Senokot) 1 tab QHS PO Last administered on 09/20/16 21:00; Admin Dose 1 TAB; Start 09/18/16 at 21:00 Sodium Chloride (Nacl) 1 gm BID PO Last administered on 09/21/16 09:55; Admin Dose 1 GM; Start 09/18/16 at 09:00 Bisacodyl 10 mg 10 mg Q24H DE Last administered on 09/21/16 09:55; Admin Dose 10 MG; Start 09/18/16 at 09:00 Levofloxacin/ Dextrose (Levaquin 250 Mg/ D5W 50 ml (Pmx)) 50 ml @ 50 mls/hr Q24H IVPB Last administered on 09/21/16 03:16; Admin Dose 50 MLS/HR; Start 09/19 at 03:30 Metoclopramide HCl (Reglan) 10 mg Q4H PRN IV NAUSEA; Start 09/19/16 at 15:30 Losartan Potassium 12.5 mg 12.5 mg BID PO Last administered on 09/21/16 09:56; Admin Dose 12.5 MG; Start 09/19/16 at 21:00 Ferric Sodium Gluconate Complex/ Sodium Chloride (Ferrlecit/NS) 110 ml @ 100 mls/hr Q24H IVPB Last administered on 09/20/16 18:14; Admin Dose 100 MLS/HR; Start 09/20/16 at 17:00; Stop 09/22/16 at 18:05 Zolpidem Tartrate (Ambien) 5 mg HS PRN PO INSOMNIA Last administered on t 21:00; Admin Dose 5 MG; Start 09/20/16 at 18:30 Israel King DO Sep 21, 2016 11:41
--- NOTE | 2016-09-21 13:13 | PN ---
Date/Time of Note Date/Time of Note DATE: 09/21/16 TIME: 13:10 Assessment/Plan VTE Prophylaxis VTE Prophylaxis Intervention: ambulation Assessment/Plan Assessment/Plan anemia stable colon parh [p] plan cont current rx Subjective 24 Hr Interval Summary Free Text/Dictation denies abd pain no ghi bleeding trying to eat Exam/Review of Systems Vital Signs Vitals Vital Signs Date Time Temp Pulse Resp B/P Pulse Ox O2 Delivery O2 Flow Rate FiO2 09/21/16 07:30 97.6 76 18 140/76 94 09/20/16 15:23 Room Air 09/19/16 12:52 10.0 Intake and Output 09/20/16 09/20/16 09/21/16 15:00 23:00 07:00 Intake Total 230 ml 400 ml Balance 230 ml 400 ml Exam appears well heart nsr lungs clear abd neg hb 9.7 Results Result Diagram: 09/21/16 0445 09/21/16 0445 Results 24 hrs Laboratory Tests Test 09/21/16 04:45 Anion Gap 18 H Basophils # 0.0 Basophils % 0.2 Blood Morphology Comment Blood Urea Nitrogen 21 H Calcium Level 8.8 Carbon Dioxide Level 22 Chloride Level 102 Creatinine 0.67 Eosinophils # 0.2 Eosinophils % 2.6 Glucose Level 90 Hematocrit 28.0 L Hemoglobin 9.7 L Lymphocytes # 2.1 Lymphocytes % 22.5 Mean Corpuscular Hemoglobin 32.5 Mean Corpuscular Hemoglobin Concent 34.5 Mean Corpuscular Volume 94.3 Mean Platelet Volume 6.7 L Monocytes # 0.8 Monocytes % 8.8 Neutrophils # 6.3 Neutrophils % 65.9 Nucleated Red Blood Cells # 0.0 Nucleated Red Blood Cells % 0.0 Platelet Count 525 H Potassium Level 4.3 Red Blood Count 2.97 L Red Cell Distribution Width 13.4 Sodium Level 138 White Blood Count 9.5 Medications Medications Current Medications Acetaminophen (Tylenol Tab) 650 mg Q4H PRN PO PAIN AND OR ELEVATED TEMP Last administered on 09/20/16 18:25; Admin Dose 650 MG; Start 09/18/16 at 02:30 Acetaminophen (Tylenol Tab) 1,000 mg Q6H PRN PO PAIN LEVEL 4-6/10; Start at 02:30 Aspirin (Aspirin) 81 mg DAILY PO Last administered on 09/21/16 09:57; Admin Dose 81 MG; Start 09/18/16 at 09:00 Atorvastatin Calcium (Lipitor) 40 mg QHS PO Last administered on 09/20/16 20:59 ; Admin Dose 40 MG; Start 09/18/16 at 21:00 Carbidopa/Levodopa (Sinemet (25/ 100)) 1 tab BID PO Last administered on 09:56; Admin Dose 1 TAB; Start 09/18/16 at 09:00 Cholecalciferol (Vitamin D) 1,000 unit DAILY PO Last administered on 09/21/16 09:55; Admin Dose 1,000 UNIT; Start 09/18/16 at 09:00 Docusate Sodium (Colace) 100 mg BID PO Last administered on 09/21/16 09:55; Admin Dose 100 MG; Start 09/18/16 at 09:00 Enoxaparin Sodium (Lovenox) 40 mg DAILY SC Last administered on 09/21/16 09:54 ; Admin Dose 40 MG; Start 09/18/16 at 09:00 Famotidine (Pepcid) 20 mg QAM PO Last administered on 09/21/16 09:55; Admin Dose 20 MG; Start 09/18/16 at 09:00 Gabapentin (Neurontin) 100 mg QHS PO Last administered on 09/20/16 20:59; Admin Dose 100 MG; Start 09/18/16 at 21:00 Acetaminophen/ Hydrocodone Bitart ([place] (5/325)) Q6 As needed for pain Q6 PRN PO PAIN 7-10/10; Start 09/18/16 at 02:30 Al Hydrox/Mg Hydrox/Simethicone (Mag-Al Plus) 30 ml Q4 PO Last administered on 09/21/16 09:55; Admin Dose 30 ML; Start 09/18/16 at 05:00 Megestrol Acetate (Megace Susp) 400 mg DAILY PO Last administered on 09/21/16 09:54; Admin Dose 400 MG; Start 09/18/16 at 09:00 Metoprolol Tartrate (Lopressor) 25 mg BID PO Last administered on 09/21/16 09: 56; Admin Dose 25 MG; Start 09/18/16 at 09:00 Polyethylene Glycol (Miralax) 17 gm DAILY PO Last administered on 09/21/16 09: 54; Admin Dose 17 GM; Start 09/18/16 at 09:00 Senna (Senokot) 1 tab QHS PO Last administered on 09/20/16 21:00; Admin Dose 1 TAB; Start 09/18/16 at 21:00 Sodium Chloride (Nacl) 1 gm BID PO Last administered on 09/21/16 09:55; Admin Dose 1 GM; Start 09/18/16 at 09:00 Bisacodyl 10 mg 10 mg Q24H [place] Last administered on 09/21/16 09:55; Admin Dose 10 MG; Start 09/18/16 at 09:00 Levofloxacin/ Dextrose (Levaquin 250 Mg/ D5W 50 ml (Pmx)) 50 ml @ 50 mls/hr Q24H IVPB Last administered on 09/21/16 03:16; Admin Dose 50 MLS/HR; Start 09/19 at 03:30 Metoclopramide HCl (Reglan) 10 mg Q4H PRN IV NAUSEA; Start 09/19/16 at 15:30 Losartan Potassium 12.5 mg 12.5 mg BID PO Last administered on 09/21/16 09:56; Admin Dose 12.5 MG; Start 09/19/16 at 21:00 Ferric Sodium Gluconate Complex/ Sodium Chloride (Ferrlecit/NS) 110 ml @ 100 mls/hr Q24H IVPB Last administered on 09/20/16 18:14; Admin Dose 100 MLS/HR; Start 09/20/16 at 17:00; Stop 09/22/16 at 18:05 Zolpidem Tartrate (Ambien) 5 mg HS PRN PO INSOMNIA Last administered on 21:00; Admin Dose 5 MG; Start 09/20/16 at 18:30 ALYSON CHIRINOS MD Sep 21, 2016 13:13
--- NOTE | 2016-09-21 14:03 | CONS ---
Date/Time of Note Date/Time of Note DATE: 09/21/16 TIME: 14:02 Assessment/Plan Assessment/Plan Chief Complaint/Hosp Course 85-year-old female from nursing facility who was transferred to our facility secondary to fevers, and currently being treated for sepsis with antibiotics. During her hospitalization patient has become more anemic. Anemia panel demonstrates a normal LDH which makes hemolysis unlikely. also Vitamin b12 and folate are normal. Iron panel suggests chronic inflammation with mild iron deficiency anemia. -s/p day 1 of Ferrlecit 125mg IV x 3 days -agree with proton pump inhibitor for gastritis which may be contributing to occult blood loss Approximately 40 min were spent Problems: Consultation Date/Type/Reason Admit Date/Time Sep 17, 2016 at 22:36 Initial Consult Date 09/19/16 Type of Consultation: Hematology Reason for Consultation anemia Referring Provider: SUJATHA WILLETT MD 24 HR Interval Summary Free Text/Dictation no acute overnight events Exam/Review of Systems Vital Signs Vitals Vital Signs Date Time Temp Pulse Resp B/P Pulse Ox O2 Delivery O2 Flow Rate FiO2 09/21/16 07:30 97.6 76 18 140/76 94 09/20/16 15:23 Room Air 09/19/16 12:52 10.0 Intake and Output 09/20/16 09/20/16 09/21/16 15:00 23:00 07:00 Intake Total 230 ml 400 ml Balance 230 ml 400 ml Exam Constitutional: frail Psych: anxiety, confusion, depression Head: normocephalic Eyes: nl conjunctiva Neck: non-tender, supple Respiratory: clear to auscultation, normal air movement Cardiovascular: regular rate and rhythm Gastrointestinal: soft Musculoskeletal: nl extremities to inspection, nl gait and stance Extremities: normal pulses Results Result Diagram: 09/21/16 0445 09/21/16 0445 Results 24 hrs Laboratory Tests Test 09/21/16 04:45 Anion Gap 18 H Basophils # 0.0 Basophils % 0.2 Blood Morphology Comment Blood Urea Nitrogen 21 H Calcium Level 8.8 Carbon Dioxide Level 22 Chloride Level 102 Creatinine 0.67 Eosinophils # 0.2 Eosinophils % 2.6 Glucose Level 90 Hematocrit 28.0 L Hemoglobin 9.7 L Lymphocytes # 2.1 Lymphocytes % 22.5 Mean Corpuscular Hemoglobin 32.5 Mean Corpuscular Hemoglobin Concent 34.5 Mean Corpuscular Volume 94.3 Mean Platelet Volume 6.7 L Monocytes # 0.8 Monocytes % 8.8 Neutrophils # 6.3 Neutrophils % 65.9 Nucleated Red Blood Cells # 0.0 Nucleated Red Blood Cells % 0.0 Platelet Count 525 H Potassium Level 4.3 Red Blood Count 2.97 L Red Cell Distribution Width 13.4 Sodium Level 138 White Blood Count 9.5 Medications Medications Current Medications Acetaminophen (Tylenol Tab) 650 mg Q4H PRN PO PAIN AND OR ELEVATED TEMP Last administered on 09/20/16 18:25; Admin Dose 650 MG; Start 09/18/16 at 02:30 Acetaminophen (Tylenol Tab) 1,000 mg Q6H PRN PO PAIN LEVEL 4-6/10; Start at 02:30 Aspirin (Aspirin) 81 mg DAILY PO Last administered on 09/21/16 09:57; Admin Dose 81 MG; Start 09/18/16 at 09:00 Atorvastatin Calcium (Lipitor) 40 mg QHS PO Last administered on 09/20/16 20:59 ; Admin Dose 40 MG; Start 09/18/16 at 21:00 Carbidopa/Levodopa (Sinemet (25/ 100)) 1 tab BID PO Last administered on 09:56; Admin Dose 1 TAB; Start 09/18/16 at 09:00 Cholecalciferol (Vitamin D) 1,000 unit DAILY PO Last administered on 09/21/16 09:55; Admin Dose 1,000 UNIT; Start 09/18/16 at 09:00 Docusate Sodium (Colace) 100 mg BID PO Last administered on 09/21/16 09:55; Admin Dose 100 MG; Start 09/18/16 at 09:00 Enoxaparin Sodium (Lovenox) 40 mg DAILY SC Last administered on 09/21/16 09:54 ; Admin Dose 40 MG; Start 09/18/16 at 09:00 Famotidine (Pepcid) 20 mg QAM PO Last administered on 09/21/16 09:55; Admin Dose 20 MG; Start 09/18/16 at 09:00 Gabapentin (Neurontin) 100 mg QHS PO Last administered on 09/20/16 20:59; Admin Dose 100 MG; Start 09/18/16 at 21:00 Acetaminophen/ Hydrocodone Bitart ([place] (5/325)) Q6 As needed for pain Q6 PRN PO PAIN 7-10/10; Start 09/18/16 at 02:30 Al Hydrox/Mg Hydrox/Simethicone (Mag-Al Plus) 30 ml Q4 PO Last administered on 09/21/16 13:43; Admin Dose 30 ML; Start 09/18/16 at 05:00 Megestrol Acetate (Megace Susp) 400 mg DAILY PO Last administered on 09/21/16 09:54; Admin Dose 400 MG; Start 09/18/16 at 09:00 Metoprolol Tartrate (Lopressor) 25 mg BID PO Last administered on 09/21/16 09: 56; Admin Dose 25 MG; Start 09/18/16 at 09:00 Polyethylene Glycol (Miralax) 17 gm DAILY PO Last administered on 09/21/16 09: 54; Admin Dose 17 GM; Start 09/18/16 at 09:00 Senna (Senokot) 1 tab QHS PO Last administered on 09/20/16 21:00; Admin Dose 1 TAB; Start 09/18/16 at 21:00 Sodium Chloride (Nacl) 1 gm BID PO Last administered on 09/21/16 09:55; Admin Dose 1 GM; Start 09/18/16 at 09:00 Bisacodyl 10 mg 10 mg Q24H [place] Last administered on 09/21/16 09:55; Admin Dose 10 MG; Start 09/18/16 at 09:00 Levofloxacin/ Dextrose (Levaquin 250 Mg/ D5W 50 ml (Pmx)) 50 ml @ 50 mls/hr Q24H IVPB Last administered on 09/21/16 03:16; Admin Dose 50 MLS/HR; Start 09/19 at 03:30 Metoclopramide HCl (Reglan) 10 mg Q4H PRN IV NAUSEA; Start 09/19/16 at 15:30 Losartan Potassium 12.5 mg 12.5 mg BID PO Last administered on 09/21/16 09:56; Admin Dose 12.5 MG; Start 09/19/16 at 21:00 Ferric Sodium Gluconate Complex/ Sodium Chloride (Ferrlecit/NS) 110 ml @ 100 mls/hr Q24H IVPB Last administered on 09/20/16 18:14; Admin Dose 100 MLS/HR; Start 09/20/16 at 17:00; Stop 09/22/16 at 18:05 Zolpidem Tartrate (Ambien) 5 mg HS PRN PO INSOMNIA Last administered on t 21:00; Admin Dose 5 MG; Start 09/20/16 at 18:30 AIDA GABRIEL M.D. Sep 21, 2016 14:03
--- NOTE | 2016-09-21 15:47 | CONS ---
DATE OF ADMISSION: 09/17/2016 DATE OF CONSULTATION: 09/21/2016 The patient has no complaints. PHYSICAL EXAMINATION: GENERAL: The patient is trying to eat now. CARDIOVASCULAR: Normal heart sounds. RESPIRATORY: Normal breath sounds. ABDOMEN: Shows soft abdomen. LABORATORY WORKUP: Hemoglobin 9.7. CLINICAL IMPRESSION: 1. Status post colonoscopy, colon polyp. Pathology is pending. She has a lobulated polyp in the r ectum which could be villous adenoma. 2. Gastritis. PLAN: Recommend wait for the pathology report. Meanwhile, continue iron therapy, Protonix. Dictated By: ALYSON CHIRINOS MD NC/NTS Conf#: [id number] DID#: [id number] CC: ALYSON CHIRINOS MD; SUJATHA WILLETT MD;*EndCC*
[2016-09-21 17:21] LABS: ALBUMIN 2.6 g/dL (3.8-4.8)
[2016-09-21] MEDS: SOD FERRIC GLUC COMPLX 125 MG in SOD CHLORIDE 0.9% 100 ML IVPB SCH (17:41)
--- NOTE | 2016-09-21 18:23 | PN ---
Date/Time of Note Date/Time of Note DATE: 09/21/16 TIME: 18:21 Assessment/Plan VTE Prophylaxis VTE Prophylaxis Intervention: SCD's Assessment/Plan Chief Complaint/Hosp Course ASSESSMENT AND PLAN: 1. GNR Urinary tract infection. Continue patient on Levaquin. Follow up on urine cultures. 2. Sepsis secondary to urinary tract infection. Continue IV fluids. 3. Elevated troponin on admission. Repeat cardiac enzymes series negative. Dr. King is following in cardiology consultation. 4. Hyponatremia secondary to dehydration and hyperkalemia on admission, resolving. 5. Cervical myelopathy by history. 6. Hypertension by history. 7. Acute encephalopathy, resolving. 8. Anemia. Dr. Hernandez is following from gastroenterology consultation. Pending endoscopy tomorrow. Dr. Ambrocio is following from hematology standpoint. 9. DNR status. Continue Protonix for peptic ulcer disease prophylaxis and Lovenox for deep venous thrombosis prophylaxis. Further recommendations based on clinical course. Plan of care discussed with Dr. King. Problems: Subjective 24 Hr Interval Summary Free Text/Dictation Patient tolerates diet well, status post colonoscopy yesterday, follow up on pathology results. Exam/Review of Systems Vital Signs Vitals Vital Signs Date Time Temp Pulse Resp B/P Pulse Ox O2 Delivery O2 Flow Rate FiO2 09/21/16 07:30 97.6 76 18 140/76 94 09/20/16 15:23 Room Air 09/19/16 12:52 10.0 Intake and Output 09/20/16 09/20/16 09/21/16 15:00 23:00 07:00 Intake Total 230 ml 400 ml Balance 230 ml 400 ml Exam GENERAL: Well-developed, well-nourished female, currently is awake, alert to name and situation. HEENT: Head is atraumatic, normocephalic. PERRLA. NECK: Supple, no cervical lymphadenopathy, no thyromegaly. CHEST: Lung sounds are slightly diminished at the bases with mild expiratory wheezes. CARDIOVASCULAR: Normal S1, S2. No murmurs, gallops, clicks, rubs noted. ABDOMEN: Round, soft, nondistended, nontender. Bowel sounds present. There is no guarding, no rebound tenderness. SKIN: There is no rash, petechiae noted. EXTREMITIES: No edema, clubbing, cyanosis. NEUROLOGIC: The patient is awake, alert to name and situation, otherwise confused. Results Result Diagram: 09/21/16 0445 09/21/16 0445 Results 24 hrs Laboratory Tests Test 09/21/16 04:45 Anion Gap 18 H Basophils # 0.0 Basophils % 0.2 Blood Morphology Comment Blood Urea Nitrogen 21 H Calcium Level 8.8 Carbon Dioxide Level 22 Chloride Level 102 Creatinine 0.67 Eosinophils # 0.2 Eosinophils % 2.6 Glucose Level 90 Hematocrit 28.0 L Hemoglobin 9.7 L Lymphocytes # 2.1 Lymphocytes % 22.5 Mean Corpuscular Hemoglobin 32.5 Mean Corpuscular Hemoglobin Concent 34.5 Mean Corpuscular Volume 94.3 Mean Platelet Volume 6.7 L Monocytes # 0.8 Monocytes % 8.8 Neutrophils # 6.3 Neutrophils % 65.9 Nucleated Red Blood Cells # 0.0 Nucleated Red Blood Cells % 0.0 Platelet Count 525 H Potassium Level 4.3 Red Blood Count 2.97 L Red Cell Distribution Width 13.4 Sodium Level 138 White Blood Count 9.5 Medications Medications Current Medications Acetaminophen (Tylenol Tab) 650 mg Q4H PRN PO PAIN AND OR ELEVATED TEMP Last administered on 09/20/16 18:25; Admin Dose 650 MG; Start 09/18/16 at 02:30 Acetaminophen (Tylenol Tab) 1,000 mg Q6H PRN PO PAIN LEVEL 4-6/10; Start at 02:30 Aspirin (Aspirin) 81 mg DAILY PO Last administered on 09/21/16 09:57; Admin Dose 81 MG; Start 09/18/16 at 09:00 Atorvastatin Calcium (Lipitor) 40 mg QHS PO Last administered on 09/20/16 20:59 ; Admin Dose 40 MG; Start 09/18/16 at 21:00 Carbidopa/Levodopa (Sinemet (25/ 100)) 1 tab BID PO Last administered on 09:56; Admin Dose 1 TAB; Start 09/18/16 at 09:00 Cholecalciferol (Vitamin D) 1,000 unit DAILY PO Last administered on 09/21/16 09:55; Admin Dose 1,000 UNIT; Start 09/18/16 at 09:00 Docusate Sodium (Colace) 100 mg BID PO Last administered on 09/21/16 09:55; Admin Dose 100 MG; Start 09/18/16 at 09:00 Enoxaparin Sodium (Lovenox) 40 mg DAILY SC Last administered on 09/21/16 09:54 ; Admin Dose 40 MG; Start 09/18/16 at 09:00 Famotidine (Pepcid) 20 mg QAM PO Last administered on 09/21/16 09:55; Admin Dose 20 MG; Start 09/18/16 at 09:00 Gabapentin (Neurontin) 100 mg QHS PO Last administered on 09/20/16 20:59; Admin Dose 100 MG; Start 09/18/16 at 21:00 Acetaminophen/ Hydrocodone Bitart ([place] (5/325)) Q6 As needed for pain Q6 PRN PO PAIN -05/28; Start 09/18/16 at 02:30 Al Hydrox/Mg Hydrox/Simethicone (Mag-Al Plus) 30 ml Q4 PO Last administered on 09/21/16 17:41; Admin Dose 30 ML; Start 09/18/16 at 05:00 Megestrol Acetate (Megace Susp) 400 mg DAILY PO Last administered on 09/21/16 09:54; Admin Dose 400 MG; Start 09/18/16 at 09:00 Metoprolol Tartrate (Lopressor) 25 mg BID PO Last administered on 09/21/16 09: 56; Admin Dose 25 MG; Start 09/18/16 at 09:00 Polyethylene Glycol (Miralax) 17 gm DAILY PO Last administered on 09/21/16 09: 54; Admin Dose 17 GM; Start 09/18/16 at 09:00 Senna (Senokot) 1 tab QHS PO Last administered on 09/20/16 21:00; Admin Dose 1 TAB; Start 09/18/16 at 21:00 Sodium Chloride (Nacl) 1 gm BID PO Last administered on 09/21/16 09:55; Admin Dose 1 GM; Start 09/18/16 at 09:00 Bisacodyl 10 mg 10 mg Q24H [place] Last administered on 09/21/16 09:55; Admin Dose 10 MG; Start 09/18/16 at 09:00 Levofloxacin/ Dextrose (Levaquin 250 Mg/ D5W 50 ml (Pmx)) 50 ml @ 50 mls/hr Q24H IVPB Last administered on 09/21/16 03:16; Admin Dose 50 MLS/HR; Start 09/19 at 03:30 Metoclopramide HCl (Reglan) 10 mg Q4H PRN IV NAUSEA; Start 09/19/16 at 15:30 Losartan Potassium 12.5 mg 12.5 mg BID PO Last administered on 09/21/16 09:56; Admin Dose 12.5 MG; Start 09/19/16 at 21:00 Ferric Sodium Gluconate Complex/ Sodium Chloride (Ferrlecit/NS) 110 ml @ 100 mls/hr Q24H IVPB Last administered on 09/21/16 17:41; Admin Dose 100 MLS/HR; Start 09/20/16 at 17:00; Stop 09/22/16 at 18:05 Zolpidem Tartrate (Ambien) 5 mg HS PRN PO INSOMNIA Last administered on 21:00; Admin Dose 5 MG; Start 09/20/16 at 18:30 ERMIAS TOBAR Sep 21, 2016 18:22
[2016-09-21 19:50] VITALS: BP 92/41; RESP 16
[2016-09-21] MEDS: ATORVASTATIN 40 MG TAB PO SCH (20:52)
[2016-09-21] MEDS: ACETAMINOPHEN 325 MG TAB PO PRN (20:53)
[2016-09-21] MEDS: GABAPENTIN 100 MG CAP PO SCH (20:53)
[2016-09-21] MEDS: SENNA TAB PO SCH (20:53)
[2016-09-21] MEDS: ZOLPIDEM 5 MG TAB PO PRN (20:53)
[2016-09-21 21:00] VITALS: BP 111/55; PULSE 76
[2016-09-22] MEDS: AL HYDROX/MG HYDROX/SIMETH 30 ML CUP PO SCH ×6 (01:13→20:40)
[2016-09-22] MEDS: LEVOFLOXACIN 250MG/D5W (PMX) 50 ML IVPB SCH (03:24)
[2016-09-22 07:25] LABS: POTASSIUM 4.5 mmol/L (3.5-5.1)
[2016-09-22 07:28] LABS: CREATININE 0.66 mg/dl (0.44-1.00)
[2016-09-22 07:29] LABS: CALCIUM 8.7 mg/dl (8.4-10.2)
[2016-09-22 08:20] VITALS: BP 97/43; RESP 19
[2016-09-22] MEDS: METOPROLOL 25 MG TAB PO SCH ×2 (09:00→20:41)
[2016-09-22] MEDS: LOSARTAN 25 MG TAB PO SCH ×2 (09:00→20:41)
[2016-09-22] MEDS: DOCUSATE SODIUM 100 MG CAP PO SCH ×2 (09:48→20:40)
[2016-09-22] MEDS: MEGESTROL (40 MG/ML) 10ML CUP PO SCH (09:48)
[2016-09-22] MEDS: CARBIDOPA/LEVODOPA (25/100) TAB PO SCH ×2 (09:48→20:40)
[2016-09-22] MEDS: FAMOTIDINE 20 MG TAB PO SCH (09:48)
[2016-09-22] MEDS: ASPIRIN 81 MG TAB PO SCH (09:48)
[2016-09-22] MEDS: CHOLECALCIFEROL 1,000 UNIT TAB PO SCH (09:48)
[2016-09-22] MEDS: POLYETHYLENE GLYCOL 17 GM PACKET PO SCH (09:48)
[2016-09-22] MEDS: SODIUM CHLORIDE 1 GM TAB PO SCH ×2 (09:48→20:40)
[2016-09-22] MEDS: ENOXAPARIN 40 MG/0.4 ML SYG SC SCH (09:50)
[2016-09-22] MEDS: BISACODYL 10 MG SUPP PR SCH (09:50)
[2016-09-22 10:16] LABS: HEMATOCRIT 29.6 % (37.0-47.0); HEMOGLOBIN 9.4 g/dl (12.0-16.0); MEAN CORPUSCULAR HEMOGLOBIN 30.6 pg (29.0-33.0); MEAN CORPUSCULAR HGB CONC 31.8 g/dl (32.0-37.0); MEAN CORPUSCULAR VOLUME 96.4 fl (82.0-101.0); RED BLOOD COUNT 3.07 10^6/ul (4.20-5.40); UNCORRECTED WBC 9.5 10^3/ul (4.8-10.8); WHITE BLOOD COUNT 9.5 10^3/ul (4.8-10.8)
[2016-09-22 10:17] LABS: BASOPHILS % 0.2 % (0.0-2.0); EOSINOPHILS # 0.4 10^3/ul (0.0-0.5); EOSINOPHILS % 3.8 % (0.0-7.0); LYMPHOCYTES # 3.2 10^3/ul (0.8-2.9); LYMPHOCYTES % 33.7 % (15.0-51.0); MONOCYTE # 0.9 10^3/ul (0.3-0.9); MONOCYTES % 9.3 % (0.0-11.0); NEUTROPHIL # 4.4 10^3/ul (1.6-7.5); PLATELET COUNT 540 10^3/UL (140-440); RED CELL DISTRIBUTION WIDTH 12.9 % (11.5-14.5)
[2016-09-22 10:19] LABS: PLATELET ESTIMATE PLT APPEAR INCREASED
--- NOTE | 2016-09-22 13:26 | PN ---
Date/Time of Note Date/Time of Note DATE: 09/22/16 TIME: 13:25 Assessment/Plan VTE Prophylaxis VTE Prophylaxis Intervention: other Lines/Catheters [facility] Saline Lock Urinary Cath still in place: No Assessment/Plan Chief Complaint/Hosp Course 1. GNR Urinary tract infection. Continue patient on Levaquin. Follow up on urine cultures. 2. Sepsis secondary to urinary tract infection. Continue IV fluids. 3. Elevated troponin on admission. Repeat cardiac enzymes series negative. Dr. King is following in cardiology consultation. 4. Hyponatremia secondary to dehydration and hyperkalemia on admission, resolving. 5. Cervical myelopathy by history. 6. Hypertension by history. 7. Acute encephalopathy, resolving. 8. Anemia. Dr. Hernandez is following from gastroenterology consultation. Pending endoscopy tomorrow. Dr. Ambrocio is following from hematology standpoint. 9. DNR status. Problems: Subjective 24 Hr Interval Summary Free Text/Dictation Patient has no complaints Exam/Review of Systems Vital Signs Vitals Vital Signs Date Time Temp Pulse Resp B/P Pulse Ox O2 Delivery O2 Flow Rate FiO2 09/22/16 08:20 98.2 68 19 97/43 18 09/20/16 15:23 Room Air 09/19/16 12:52 10.0 Intake and Output 09/21/16 09/21/16 09/22/16 15:00 23:00 07:00 Intake Total 950 ml 400 ml Balance 950 ml 400 ml Exam Neck: supple Respiratory: diminished breath sounds Cardiovascular: regular rate and rhythm Gastrointestinal: non-tender, soft Extremities: normal pulses Results Result Diagram: 09/22/16 0536 09/22/16 0536 Results 24 hrs Laboratory Tests Test 09/22/16 05:36 Anion Gap 16 Basophils # 0.0 Basophils % 0.2 Blood Urea Nitrogen 20 Calcium Level 8.7 Carbon Dioxide Level 24 Chloride Level 103 Creatinine 0.66 Differential Comment AUTO w/SCAN Eosinophils # 0.4 Eosinophils % 3.8 Glucose Level 88 Hematocrit 29.6 L Hemoglobin 9.4 L Lymphocytes # 3.2 H Lymphocytes % 33.7 Mean Corpuscular Hemoglobin 30.6 Mean Corpuscular Hemoglobin Concent 31.8 L Mean Corpuscular Volume 96.4 Mean Platelet Volume 9.0 # Monocytes # 0.9 Monocytes % 9.3 Neutrophils # 4.4 Neutrophils % 46.0 Nucleated Red Blood Cells # 0.0 Nucleated Red Blood Cells % 0.0 Platelet Count 540 H Platelet Estimate PLT APPEAR INCREASED Potassium Level 4.5 Red Blood Count 3.07 L Red Cell Distribution Width 12.9 Sodium Level 138 White Blood Count 9.5 Medications Medications Current Medications Acetaminophen (Tylenol Tab) 650 mg Q4H PRN PO PAIN AND OR ELEVATED TEMP Last administered on 09/21/16 20:53; Admin Dose 650 MG; Start 09/18/16 at 02:30 Acetaminophen (Tylenol Tab) 1,000 mg Q6H PRN PO PAIN LEVEL 4-6/10; Start at 02:30 Aspirin (Aspirin) 81 mg DAILY PO Last administered on 09/22/16 09:48; Admin Dose 81 MG; Start 09/18/16 at 09:00 Atorvastatin Calcium (Lipitor) 40 mg QHS PO Last administered on 09/21/16 20:52 ; Admin Dose 40 MG; Start 09/18/16 at 21:00 Carbidopa/Levodopa (Sinemet (25/ 100)) 1 tab BID PO Last administered on 09:48; Admin Dose 1 TAB; Start 09/18/16 at 09:00 Cholecalciferol (Vitamin D) 1,000 unit DAILY PO Last administered on 09/22/16 09:48; Admin Dose 1,000 UNIT; Start 09/18/16 at 09:00 Docusate Sodium (Colace) 100 mg BID PO Last administered on 09/22/16 09:48; Admin Dose 100 MG; Start 09/18/16 at 09:00 Enoxaparin Sodium (Lovenox) 40 mg DAILY SC Last administered on 09/22/16 09:50 ; Admin Dose 40 MG; Start 09/18/16 at 09:00 Famotidine (Pepcid) 20 mg QAM PO Last administered on 09/22/16 09:48; Admin Dose 20 MG; Start 09/18/16 at 09:00 Gabapentin (Neurontin) 100 mg QHS PO Last administered on 09/21/16 20:53; Admin Dose 100 MG; Start 09/18/16 at 21:00 Acetaminophen/ Hydrocodone Bitart ([place] (5/325)) Q6 As needed for pain Q6 PRN PO PAIN 7-10/10; Start 09/18/16 at 02:30 Al Hydrox/Mg Hydrox/Simethicone (Mag-Al Plus) 30 ml Q4 PO Last administered on 09/22/16 12:36; Admin Dose 30 ML; Start 09/18/16 at 05:00 Megestrol Acetate (Megace Susp) 400 mg DAILY PO Last administered on 09/22/16 09:48; Admin Dose 400 MG; Start 09/18/16 at 09:00 Metoprolol Tartrate (Lopressor) 25 mg BID PO Last administered on 09/21/16 09: 56; Admin Dose 25 MG; Start 09/18/16 at 09:00 Polyethylene Glycol (Miralax) 17 gm DAILY PO Last administered on 09/22/16 09: 48; Admin Dose 17 GM; Start 09/18/16 at 09:00 Senna (Senokot) 1 tab QHS PO Last administered on 09/21/16 20:53; Admin Dose 1 TAB; Start 09/18/16 at 21:00 Sodium Chloride (Nacl) 1 gm BID PO Last administered on 09/22/16 09:48; Admin Dose 1 GM; Start 09/18/16 at 09:00 Bisacodyl 10 mg 10 mg Q24H [place] Last administered on 09/22/16 09:50; Admin Dose 10 MG; Start 09/18/16 at 09:00 Levofloxacin/ Dextrose (Levaquin 250 Mg/ D5W 50 ml (Pmx)) 50 ml @ 50 mls/hr Q24H IVPB Last administered on 09/22/16 03:24; Admin Dose 50 MLS/HR; Start 09/19 at 03:30 Metoclopramide HCl (Reglan) 10 mg Q4H PRN IV NAUSEA; Start 09/19/16 at 15:30 Losartan Potassium 12.5 mg 12.5 mg BID PO Last administered on 09/21/16 09:56; Admin Dose 12.5 MG; Start 09/19/16 at 21:00 Ferric Sodium Gluconate Complex/ Sodium Chloride (Ferrlecit/NS) 110 ml @ 100 mls/hr Q24H IVPB Last administered on 09/21/16 17:41; Admin Dose 100 MLS/HR; Start 09/20/16 at 17:00; Stop 09/22/16 at 18:05 Zolpidem Tartrate (Ambien) 5 mg HS PRN PO INSOMNIA Last administered on t 20:53; Admin Dose 5 MG; Start 09/20/16 at 18:30 TICO CLANCY Sep 22, 2016 13:26
[2016-09-22] MEDS: SOD FERRIC GLUC COMPLX 125 MG in SOD CHLORIDE 0.9% 100 ML IVPB SCH (17:46)
[2016-09-22 19:41] VITALS: BP 106/53; RESP 18
[2016-09-22] MEDS: SENNA TAB PO SCH (20:40)
[2016-09-22] MEDS: ATORVASTATIN 40 MG TAB PO SCH (20:40)
[2016-09-22] MEDS: ZOLPIDEM 5 MG TAB PO PRN (20:40)
[2016-09-22] MEDS: GABAPENTIN 100 MG CAP PO SCH (20:40)
[2016-09-23] MEDS: AL HYDROX/MG HYDROX/SIMETH 30 ML CUP PO SCH ×6 (00:33→21:03)
[2016-09-23] MEDS: LEVOFLOXACIN 250MG/D5W (PMX) 50 ML IVPB SCH (03:39)
[2016-09-23 06:09] LABS: BASOPHILS % 0.1 % (0.0-2.0); EOSINOPHILS # 0.4 10^3/ul (0.0-0.5); EOSINOPHILS % 3.9 % (0.0-7.0); HEMATOCRIT 28.4 % (37.0-47.0); HEMOGLOBIN 9.6 g/dl (12.0-16.0); LYMPHOCYTES # 3.1 10^3/ul (0.8-2.9); MEAN CORPUSCULAR HEMOGLOBIN 31.9 pg (29.0-33.0); MEAN CORPUSCULAR VOLUME 93.7 fl (82.0-101.0); MEAN PLATELET VOLUME 6.7 fl (7.4-10.4); MONOCYTE # 0.7 10^3/ul (0.3-0.9); MONOCYTES % 7.1 % (0.0-11.0); NEUTROPHIL # 5.6 10^3/ul (1.6-7.5); NEUTROPHILS % 56.9 % (39.0-77.0); PLATELET COUNT 577 10^3/UL (140-440); RED BLOOD COUNT 3.03 10^6/ul (4.20-5.40); RED CELL DISTRIBUTION WIDTH 13.3 % (11.5-14.5); UNCORRECTED WBC 9.8 10^3/ul (4.8-10.8); WHITE BLOOD COUNT 9.8 10^3/ul (4.8-10.8)
[2016-09-23 06:29] LABS: CONDITION 1
[2016-09-23 07:37] VITALS: BP 116/52; RESP 18
[2016-09-23] MEDS: METOPROLOL 25 MG TAB PO SCH ×2 (09:00→21:00)
[2016-09-23] MEDS: LOSARTAN 25 MG TAB PO SCH ×2 (09:00→21:00)
--- NOTE | 2016-09-23 09:01 | CONS ---
DATE OF ADMISSION: 09/17/2016 DATE OF CONSULTATION: 09/22/2016 HISTORY OF PRESENT ILLNESS: : Ms. Streeter is an 85-year-old lady who is being treated for sepsis with antibiotics. She became more anemic with hemoglobin down to 8.4. Her anemia panel was unremarkabl e with ferritin 788, normal B12 and folate, but the iron saturation was slightly low at 17%. The pa tient is on ferric oxide IV. PHYSICAL EXAMINATION: GENERAL: Shows moderately built female who is alert, and she says she wants to go home. VITAL SIGNS: Unremarkable. CHEST: Symmetrical. BREASTS: Without any lumps. LUNGS: Show distant lung sounds. HEART: Sounds normal. ABDOMEN: Soft. EXTREMITIES: Showed no edema, clubbing, or cyanosis. 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 LABORATORY DATA: Her hemoglobin is stable at 9.4 with WBC 9400 and platelets 540,000. Her creatini ne is 0.66. IMPRESSION: 1. History of sepsis, the patient on antibiotics. 2. Moderately severe normochromic anemia, most likely secondary to sepsis or anemia of chronic illn ess. Rule out also myelodysplastic syndrome. RECOMMENDATIONS AND PLAN: This patient most likely has anemia of chronic illness or she could have myelodysplastic syndrome. The patient is on IV iron, and her serum ferritin was 788. I doubt that the iron is going to be of much help. If her anemia becomes and problem, Procrit may be considered. I will order a Procrit level. Dictated By: ALLEN WILKERSON/JOSEPH Conf#: [id number] DID#: [id number]
[2016-09-23] MEDS: ASPIRIN 81 MG TAB PO SCH (10:19)
[2016-09-23] MEDS: DOCUSATE SODIUM 100 MG CAP PO SCH ×2 (10:19→21:03)
[2016-09-23] MEDS: POLYETHYLENE GLYCOL 17 GM PACKET PO SCH (10:20)
[2016-09-23] MEDS: SODIUM CHLORIDE 1 GM TAB PO SCH ×2 (10:20→21:03)
[2016-09-23] MEDS: FAMOTIDINE 20 MG TAB PO SCH (10:20)
[2016-09-23] MEDS: MEGESTROL (40 MG/ML) 10ML CUP PO SCH (10:20)
[2016-09-23] MEDS: CARBIDOPA/LEVODOPA (25/100) TAB PO SCH ×2 (10:20→21:03)
[2016-09-23] MEDS: ENOXAPARIN 40 MG/0.4 ML SYG SC SCH (10:21)
[2016-09-23] MEDS: BISACODYL 10 MG SUPP PR SCH (10:21)
[2016-09-23] MEDS: CHOLECALCIFEROL 1,000 UNIT TAB PO SCH (10:21)
--- NOTE | 2016-09-23 12:18 | PN ---
Date/Time of Note Date/Time of Note DATE: 09/23/16 TIME: 12:18 Assessment/Plan VTE Prophylaxis VTE Prophylaxis Intervention: other Lines/Catheters IV C[facility]ter Type (from [facility]): Saline Lock Urinary Cath still in place: No Assessment/Plan Chief Complaint/Hosp Course 1. GNR Urinary tract infection. Continue patient on Levaquin. Follow up on urine cultures. 2. Sepsis secondary to urinary tract infection. Continue IV fluids. 3. Elevated troponin on admission. Repeat cardiac enzymes series negative. Dr. King is following in cardiology consultation. 4. Hyponatremia secondary to dehydration and hyperkalemia on admission, resolving. 5. Cervical myelopathy by history. 6. Hypertension by history. 7. Acute encephalopathy, resolving. 8. Anemia. Dr. Hernandez is following from gastroenterology consultation. Pending endoscopy tomorrow. Dr. Ambrocio is following from hematology standpoint. 9. DNR status. Problems: Subjective 24 Hr Interval Summary Free Text/Dictation Patient has no complaints Exam/Review of Systems Vital Signs Vitals Vital Signs Date Time Temp Pulse Resp B/P Pulse Ox O2 Delivery O2 Flow Rate FiO2 09/23/16 07:37 97.8 71 18 116/52 97 09/20/16 15:23 Room Air 09/19/16 12:52 10.0 Intake and Output 09/22/16 09/22/16 09/23/16 15:00 23:00 07:00 Intake Total 760 ml 300 ml Balance 760 ml 300 ml Exam Constitutional: well developed Head: atraumatic, normocephalic Neck: supple Respiratory: diminished breath sounds Cardiovascular: regular rate and rhythm Gastrointestinal: non-tender, soft Extremities: normal pulses Results Result Diagram: 09/23/16 0445 09/22/16 0536 Results 24 hrs Laboratory Tests Test 09/23/16 04:45 Basophils # 0.0 Basophils % 0.1 Blood Morphology Comment Eosinophils # 0.4 Eosinophils % 3.9 Hematocrit 28.4 L Hemoglobin 9.6 L Lymphocytes # 3.1 H Lymphocytes % 32.0 Mean Corpuscular Hemoglobin 31.9 Mean Corpuscular Hemoglobin Concent 34.0 Mean Corpuscular Volume 93.7 Mean Platelet Volume 6.7 #L Monocytes # 0.7 Monocytes % 7.1 Neutrophils # 5.6 Neutrophils % 56.9 Nucleated Red Blood Cells # 0.0 Nucleated Red Blood Cells % 0.0 Platelet Count 577 H Red Blood Count 3.03 L Red Cell Distribution Width 13.3 White Blood Count 9.8 Medications Medications Current Medications Acetaminophen (Tylenol Tab) 650 mg Q4H PRN PO PAIN AND OR ELEVATED TEMP Last administered on 09/21/16 20:53; Admin Dose 650 MG; Start 09/18/16 at 02:30 Acetaminophen (Tylenol Tab) 1,000 mg Q6H PRN PO PAIN LEVEL 4-6/10; Start at 02:30 Aspirin (Aspirin) 81 mg DAILY PO Last administered on 09/23/16 10:19; Admin Dose 81 MG; Start 09/18/16 at 09:00 Atorvastatin Calcium (Lipitor) 40 mg QHS PO Last administered on 09/22/16 20:40 ; Admin Dose 40 MG; Start 09/18/16 at 21:00 Carbidopa/Levodopa (Sinemet (25/ 100)) 1 tab BID PO Last administered on 10:20; Admin Dose 1 TAB; Start 09/18/16 at 09:00 Cholecalciferol (Vitamin D) 1,000 unit DAILY PO Last administered on 09/23/16 10:21; Admin Dose 1,000 UNIT; Start 09/18/16 at 09:00 Docusate Sodium (Colace) 100 mg BID PO Last administered on 09/23/16 10:19; Admin Dose 100 MG; Start 09/18/16 at 09:00 Enoxaparin Sodium (Lovenox) 40 mg DAILY SC Last administered on 09/23/16 10:21 ; Admin Dose 40 MG; Start 09/18/16 at 09:00 Famotidine (Pepcid) 20 mg QAM PO Last administered on 09/23/16 10:20; Admin Dose 20 MG; Start 09/18/16 at 09:00 Gabapentin (Neurontin) 100 mg QHS PO Last administered on 09/22/16 20:40; Admin Dose 100 MG; Start 09/18/16 at 21:00 Acetaminophen/ Hydrocodone Bitart ([place] (5/325)) Q6 As needed for pain Q6 PRN PO PAIN 7-10/10; Start 09/18/16 at 02:30 Al Hydrox/Mg Hydrox/Simethicone (Mag-Al Plus) 30 ml Q4 PO Last administered on 09/23/16 10:20; Admin Dose 30 ML; Start 09/18/16 at 05:00 Megestrol Acetate (Megace Susp) 400 mg DAILY PO Last administered on 09/23/16 10:20; Admin Dose 400 MG; Start 09/18/16 at 09:00 Metoprolol Tartrate (Lopressor) 25 mg BID PO Last administered on 09/21/16 09: 56; Admin Dose 25 MG; Start 09/18/16 at 09:00 Polyethylene Glycol (Miralax) 17 gm DAILY PO Last administered on 09/23/16 10: 20; Admin Dose 17 GM; Start 09/18/16 at 09:00 Senna (Senokot) 1 tab QHS PO Last administered on 09/22/16 20:40; Admin Dose 1 TAB; Start 09/18/16 at 21:00 Sodium Chloride (Nacl) 1 gm BID PO Last administered on 09/23/16 10:20; Admin Dose 1 GM; Start 09/18/16 at 09:00 Bisacodyl 10 mg [address] Last administered on 09/23/16 10:21; Admin Dose 10 MG; Start 09/18/16 at 09:00 Levofloxacin/ Dextrose (Levaquin 250 Mg/ D5W 50 ml (Pmx)) 50 ml @ 50 mls/hr Q24H IVPB Last administered on 09/23/16 03:39; Admin Dose 50 MLS/HR; Start 09/19 at 03:30 Metoclopramide HCl (Reglan) 10 mg Q4H PRN IV NAUSEA; Start 09/19/16 at 15:30 Losartan Potassium (Cozaar) 12.5 mg BID PO Last administered on 09/21/16 09:56 ; Admin Dose 12.5 MG; Start 09/19/16 at 21:00 Zolpidem Tartrate (Ambien) 5 mg HS PRN PO INSOMNIA Last administered on 20:40; Admin Dose 5 MG; Start 09/20/16 at 18:30 TICO CLANCY Sep 23, 2016 12:18
--- NOTE | 2016-09-23 19:20 | HKNOTE ---
DATE OF SERVICE: 09/23/2016 Mrs. Streeter is an 85-year-old lady who was admitted because of sepsis. She was found to be severely an emic with hemoglobin down to 8.4. Her anemia apparently has been unremarkable. Her iron saturation w as slightly low at 17%. Her serum ferritin, however, was high at 788. The patient was on ferric oxid e. The patient is basically better then. She states she wants to go home. PHYSICAL EXAMINATION: GENERAL: Shows an alert and oriented elderly lady in no acute distress. She is afebrile. HEENT: Head normocephalic. Eyes: PERRLA, EOM normal. NECK: Supple without any abnormal masses or pulsations. Mouth: Oral mucosa normal. CHEST: Symmetrical. BREASTS: Without any lumps. HEART: Heart sounds normal. LUNGS: Show distant breath sounds. ABDOMEN: Soft, no masses. EXTREMITIES: Showed no edema. VENDOR ANALYST: Her higher function, speech and cranial nerves appeared to be normal. She has generalized muscl e weakness. LABORATORY DATA: Her CBC is stable except hemoglobin 9.6, which is also stable. Her BMP is normal wi th creatinine 0.60. IMPRESSION: 1. Recent sepsis, patient on antibiotics, improving. 2. Moderately severe normochromic anemia with a negative anemia panel. Most likely anemia of chroni c illness. Bone marrow pathology like myelodysplasia also is a possibility. PLAN: She most likely has anemia of chronic illness. As mentioned above, MDS is also a possibility. If her anemia does not get better or gets worse, a trial of Procrit may be considered. I would also order a stool hemoccult just to make sure she does not have any GI bleeding. Dictated By: ALLEN WILKERSON/NTS Conf#: [id number] DID#: [id number]
[2016-09-23 20:00] VITALS: BP 108/59; RESP 19
[2016-09-23] MEDS: ATORVASTATIN 40 MG TAB PO SCH (21:03)
[2016-09-23] MEDS: ZOLPIDEM 5 MG TAB PO PRN (21:03)
[2016-09-23] MEDS: SENNA TAB PO SCH (21:03)
[2016-09-23] MEDS: GABAPENTIN 100 MG CAP PO SCH (21:03)
[2016-09-24] MEDS: AL HYDROX/MG HYDROX/SIMETH 30 ML CUP PO SCH ×6 (02:04→20:43)
[2016-09-24] MEDS: LEVOFLOXACIN 250MG/D5W (PMX) 50 ML IVPB SCH (02:42)
[2016-09-24 07:55] VITALS: BP 117/73; RESP 16
[2016-09-24] MEDS: ASPIRIN 81 MG TAB PO SCH (08:36)
[2016-09-24] MEDS: SODIUM CHLORIDE 1 GM TAB PO SCH ×2 (08:36→20:43)
[2016-09-24] MEDS: MEGESTROL (40 MG/ML) 10ML CUP PO SCH (08:37)
[2016-09-24] MEDS: METOPROLOL 25 MG TAB PO SCH ×2 (08:37→20:43)
[2016-09-24] MEDS: DOCUSATE SODIUM 100 MG CAP PO SCH ×2 (08:37→20:43)
[2016-09-24] MEDS: LOSARTAN 25 MG TAB PO SCH (08:37)
[2016-09-24] MEDS: BISACODYL 10 MG SUPP PR SCH (08:38)
[2016-09-24] MEDS: POLYETHYLENE GLYCOL 17 GM PACKET PO SCH (08:38)
[2016-09-24] MEDS: CARBIDOPA/LEVODOPA (25/100) TAB PO SCH ×2 (08:38→20:43)
[2016-09-24] MEDS: CHOLECALCIFEROL 1,000 UNIT TAB PO SCH (08:38)
[2016-09-24] MEDS: FAMOTIDINE 20 MG TAB PO SCH (08:38)
[2016-09-24] MEDS: ENOXAPARIN 40 MG/0.4 ML SYG SC SCH (08:39)
--- NOTE | 2016-09-24 14:24 | CONS ---
Date/Time of Note Date/Time of Note DATE: 09/24/16 TIME: 14:23 Assessment/Plan Assessment/Plan Chief Complaint/Hosp Course 85-year-old female from nursing facility who was transferred to our facility secondary to fevers, and currently being treated for sepsis with antibiotics. During her hospitalization patient has become more anemic. Anemia panel demonstrates a normal LDH which makes hemolysis unlikely. also Vitamin b12 and folate are normal. Iron panel suggests chronic inflammation with mild iron deficiency anemia. -s/p Ferrlecit 125mg IV x 3 days -agree with proton pump inhibitor for gastritis which may be contributing to occult blood loss -will continue to closely monitor Hg. If it drops will consider a trial of procrit at that time Approximately 40 min were spent Problems: Consultation Date/Type/Reason Admit Date/Time Sep 17, 2016 at 22:36 Initial Consult Date 09/19/16 Type of Consultation: Hematology Reason for Consultation anemia Referring Provider: SUJATHA WILLETT MD 24 HR Interval Summary Free Text/Dictation no acute overnight events. no bleeding. patient's Hg is stable Exam/Review of Systems Vital Signs Vitals Vital Signs Date Time Temp Pulse Resp B/P Pulse Ox O2 Delivery O2 Flow Rate FiO2 09/24/16 07:55 98.0 77 16 117/73 96 09/20/16 15:23 Room Air Intake and Output 09/23/16 09/23/16 09/24/16 15:00 23:00 07:00 Intake Total 1080 ml 290 ml Balance 1080 ml 290 ml Exam Constitutional: alert Psych: nl mood/affect, no complaints Head: normocephalic Eyes: nl conjunctiva ENMT: nl external ears & nose Neck: non-tender, supple Respiratory: clear to auscultation, normal air movement Cardiovascular: nl pulses, regular rate and rhythm Gastrointestinal: soft Genitourinary - Female: nl adnexae Musculoskeletal: nl extremities to inspection Extremities: normal pulses Results Result Diagram: 09/23/16 0445 09/22/16 0536 Results 24 hrs Laboratory Tests Test 09/24/16 05:40 Stool Occult Blood NEGATIVE Medications Medications Current Medications Acetaminophen (Tylenol Tab) 650 mg Q4H PRN PO PAIN AND OR ELEVATED TEMP Last administered on 09/21/16t 20:53; Admin Dose 650 MG; Start 09/18/16 at 02:30 Acetaminophen (Tylenol Tab) 1,000 mg Q6H PRN PO PAIN LEVEL 4-6/10; Start at 02:30 Aspirin (Aspirin) 81 mg DAILY PO Last administered on 09/24/16 08:36; Admin Dose 81 MG; Start 09/18/16 at 09:00 Atorvastatin Calcium (Lipitor) 40 mg QHS PO Last administered on 09/23/16 21:03 ; Admin Dose 40 MG; Start 09/18/16 at 21:00 Carbidopa/Levodopa (Sinemet (25/ 100)) 1 tab BID PO Last administered on 08:38; Admin Dose 1 TAB; Start 09/18/16 at 09:00 Cholecalciferol (Vitamin D) 1,000 unit DAILY PO Last administered on 09/24/16 08:38; Admin Dose 1,000 UNIT; Start 09/18/16 at 09:00 Docusate Sodium (Colace) 100 mg BID PO Last administered on 09/24/16 08:37; Admin Dose 100 MG; Start 09/18/16 at 09:00 Enoxaparin Sodium (Lovenox) 40 mg DAILY SC Last administered on 09/24/16 08:39 ; Admin Dose 40 MG; Start 09/18/16 at 09:00 Famotidine (Pepcid) 20 mg QAM PO Last administered on 09/24/16 08:38; Admin Dose 20 MG; Start 09/18/16 at 09:00 Gabapentin (Neurontin) 100 mg QHS PO Last administered on 09/23/16 21:03; Admin Dose 100 MG; Start 09/18/16 at 21:00 Acetaminophen/ Hydrocodone Bitart ([place] (5/325)) Q6 As needed for pain Q6 PRN PO PAIN 7-10/10; Start 09/18/16 at 02:30 Al Hydrox/Mg Hydrox/Simethicone (Mag-Al Plus) 30 ml Q4 PO Last administered on 09/24/16 13:56; Admin Dose 30 ML; Start 09/18/16 at 05:00 Megestrol Acetate (Megace Susp) 400 mg DAILY PO Last administered on 09/24/16 08:37; Admin Dose 400 MG; Start 09/18/16 at 09:00 Metoprolol Tartrate (Lopressor) 25 mg BID PO Last administered on 09/24/16 08: 37; Admin Dose 25 MG; Start 09/18/16 at 09:00 Polyethylene Glycol (Miralax) 17 gm DAILY PO Last administered on 09/24/16 08: 38; Admin Dose 17 GM; Start 09/18/16 at 09:00 Senna (Senokot) 1 tab QHS PO Last administered on 09/23/16 21:03; Admin Dose 1 TAB; Start 09/18/16 at 21:00 Sodium Chloride (Nacl) 1 gm BID PO Last administered on 09/24/16 08:36; Admin Dose 1 GM; Start 09/18/16 at 09:00 Bisacodyl 10 mg 10 mg Q24H [place] Last administered on 09/24/16 08:38; Admin Dose 10 MG; Start 09/18/16 at 09:00 Levofloxacin/ Dextrose (Levaquin 250 Mg/ D5W 50 ml (Pmx)) 50 ml @ 50 mls/hr Q24H IVPB Last administered on 09/24/16 02:42; Admin Dose 50 MLS/HR; Start 09/19 at 03:30 Metoclopramide HCl (Reglan) 10 mg Q4H PRN IV NAUSEA; Start 09/19/16 at 15:30 Losartan Potassium (Cozaar) 12.5 mg BID PO Last administered on 09/24/16 08:37 ; Admin Dose 12.5 MG; Start 09/19/16 at 21:00 Zolpidem Tartrate (Ambien) 5 mg HS PRN PO INSOMNIA Last administered on 21:03; Admin Dose 5 MG; Start 09/20/16 at 18:30 AIDA GABRIEL M.D. Sep 24, 2016 14:24
--- NOTE | 2016-09-24 16:48 | CONS ---
Date/Time of Note Date/Time of Note DATE: 09/24/16 TIME: 16:46 Assessment/Plan Assessment/Plan Additional Assessment/Plan Sepsis secondary to UTI Mildly elevated troponin Preserved ejection fraction History of hypertension Dyslipidemia Parkinson's Anemia -Blood pressure trend on the lower side, would decrease antihypertensive medication regimen. Continue statin. Would continue aspirin if no contraindication, but if concern of GI bleed, would stop aspirin. Consultation Date/Type/Reason Admit Date/Time Sep 17, 2016 at 22:36 Initial Consult Date 09/19/16 Type of Consultation: cv Referring Provider: SUJATHA WILLETT MD 24 HR Interval Summary Free Text/Dictation Denies shortness of breath, chest pain or palpitations or dizziness Exam/Review of Systems Vital Signs Vitals Vital Signs Date Time Temp Pulse Resp B/P Pulse Ox O2 Delivery O2 Flow Rate FiO2 09/24/16 07:55 98.0 77 16 117/73 96 09/20/16 15:23 Room Air Intake and Output 09/23/16 09/23/16 09/24/16 15:00 23:00 07:00 Intake Total 1080 ml 290 ml Balance 1080 ml 290 ml Exam No apparent distress, follows commands Constitutional: alert Head: normocephalic Respiratory: other (course breath sounds bilaterally, no wheezing) Cardiovascular: other (S1-S2 heard), regular rate and rhythm Gastrointestinal: bowel sounds, non-tender, soft Extremities: other (no edema) Results Result Diagram: 09/23/16 0445 09/22/16 0536 Results 24 hrs Laboratory Tests Test 09/24/16 05:40 Stool Occult Blood NEGATIVE Medications Medications Current Medications Acetaminophen (Tylenol Tab) 650 mg Q4H PRN PO PAIN AND OR ELEVATED TEMP Last administered on 09/21/16 20:53; Admin Dose 650 MG; Start 09/18/16 at 02:30 Acetaminophen (Tylenol Tab) 1,000 mg Q6H PRN PO PAIN LEVEL 4-6/10; Start at 02:30 Aspirin (Aspirin) 81 mg DAILY PO Last administered on 09/24/16 08:36; Admin Dose 81 MG; Start 09/18/16 at 09:00 Atorvastatin Calcium (Lipitor) 40 mg QHS PO Last administered on 09/23/16 21:03 ; Admin Dose 40 MG; Start 09/18/16 at 21:00 Carbidopa/Levodopa (Sinemet (25/ 100)) 1 tab BID PO Last administered on 08:38; Admin Dose 1 TAB; Start 09/18/16 at 09:00 Cholecalciferol (Vitamin D) 1,000 unit DAILY PO Last administered on 09/24/16 08:38; Admin Dose 1,000 UNIT; Start 09/18/16 at 09:00 Docusate Sodium (Colace) 100 mg BID PO Last administered on 09/24/16 08:37; Admin Dose 100 MG; Start 09/18/16 at 09:00 Enoxaparin Sodium (Lovenox) 40 mg DAILY SC Last administered on 09/24/16 08:39 ; Admin Dose 40 MG; Start 09/18/16 at 09:00 Famotidine (Pepcid) 20 mg QAM PO Last administered on 09/24/16 08:38; Admin Dose 20 MG; Start 09/18/16 at 09:00 Gabapentin (Neurontin) 100 mg QHS PO Last administered on 09/23/16 21:03; Admin Dose 100 MG; Start 09/18/16 at 21:00 Acetaminophen/ Hydrocodone Bitart ([place] (5/325)) Q6 As needed for pain Q6 PRN PO PAIN 7-1010; Start 09/18/16 at 02:30 Al Hydrox/Mg Hydrox/Simethicone (Mag-Al Plus) 30 ml Q4 PO Last administered on 09/24/16 13:56; Admin Dose 30 ML; Start 09/18/16 at 05:00 Megestrol Acetate (Megace Susp) 400 mg DAILY PO Last administered on 09/24/16 08:37; Admin Dose 400 MG; Start 09/18/16 at 09:00 Metoprolol Tartrate (Lopressor) 25 mg BID PO Last administered on 09/24/16 08: 37; Admin Dose 25 MG; Start 09/18/16 at 09:00 Polyethylene Glycol (Miralax) 17 gm DAILY PO Last administered on 09/24/16 08: 38; Admin Dose 17 GM; Start 09/18/16 at 09:00 Senna (Senokot) 1 tab QHS PO Last administered on 09/23/16 21:03; Admin Dose 1 TAB; Start 09/18/16 at 21:00 Sodium Chloride (Nacl) 1 gm BID PO Last administered on 09/24/16 08:36; Admin Dose 1 GM; Start 09/18/16 at 09:00 Bisacodyl 10 mg 10 mg Q24H [place] Last administered on 09/24/16 08:38; Admin Dose 10 MG; Start 09/18/16 at 09:00 Levofloxacin/ Dextrose (Levaquin 250 Mg/ D5W 50 ml (Pmx)) 50 ml @ 50 mls/hr Q24H IVPB Last administered on 09/24/16 02:42; Admin Dose 50 MLS/HR; Start 09/19 at 03:30 Metoclopramide HCl (Reglan) 10 mg Q4H PRN IV NAUSEA; Start 09/19/16 at 15:30 Losartan Potassium (Cozaar) 12.5 mg BID PO Last administered on 09/24/16 08:37 ; Admin Dose 12.5 MG; Start 09/19/16 at 21:00 Zolpidem Tartrate (Ambien) 5 mg HS PRN PO INSOMNIA Last administered on 21:03; Admin Dose 5 MG; Start 09/20/16 at 18:30 Israel King DO Sep 24, 2016 16:48
--- NOTE | 2016-09-24 18:12 | PN ---
Date/Time of Note Date/Time of Note DATE: 09/24/16 TIME: 18:12 Assessment/Plan VTE Prophylaxis VTE Prophylaxis Intervention: SCD's Lines/Catheters [facility] Urinary Cath still in place: No Assessment/Plan Chief Complaint/Hosp Course ASSESSMENT AND PLAN: 1. Urinary tract infection. Change antibiotics to cefepime. 2. Sepsis secondary to urinary tract infection, resolved. 3. Elevated troponin on admission. Repeat cardiac enzymes series negative. Dr. King is following in cardiology consultation. 4. Hyponatremia secondary to dehydration and hyperkalemia on admission, resolving. 5. Cervical myelopathy by history. 6. Hypertension by history. 7. Acute encephalopathy, resolving. 8. Anemia. Dr. Ko is following from gastroenterology consultation. Status post EGD and colonoscopy. Dr. Ambrocio is following from hematology standpoint. 9. Gastritis per EGD. Continue Protonix. 10. DNR status. Continue Protonix for peptic ulcer disease prophylaxis and Lovenox for deep venous thrombosis prophylaxis. Further recommendations based on clinical course. Plan of care discussed with Dr. King. Problems: Subjective 24 Hr Interval Summary Free Text/Dictation Patient tolerates diet well, no nausea no vomiting per nursing staff. Exam/Review of Systems Vital Signs Vitals Vital Signs Date Time Temp Pulse Resp B/P Pulse Ox O2 Delivery O2 Flow Rate FiO2 09/24/16 07:55 98.0 77 16 117/73 96 09/20/16 15:23 Room Air Intake and Output 09/23/16 09/23/16 09/24/16 15:00 23:00 07:00 Intake Total 1080 ml 290 ml Balance 1080 ml 290 ml Exam GENERAL: Well-developed, well-nourished female, currently is awake, alert to name and situation. HEENT: Head is atraumatic, normocephalic. PERRLA. NECK: Supple, no cervical lymphadenopathy, no thyromegaly. CHEST: Lung sounds are slightly diminished at the bases with mild expiratory wheezes. CARDIOVASCULAR: Normal S1, S2. No murmurs, gallops, clicks, rubs noted. ABDOMEN: Round, soft, nondistended, nontender. Bowel sounds present. There is no guarding, no rebound tenderness. SKIN: There is no rash, petechiae noted. EXTREMITIES: No edema, clubbing, cyanosis. NEUROLOGIC: The patient is awake, alert to name and situation, otherwise confused. Results Result Diagram: 09/23/16 0445 09/22/16 0536 Results 24 hrs Laboratory Tests Test 09/24/16 05:40 Stool Occult Blood NEGATIVE Medications Medications Current Medications Acetaminophen (Tylenol Tab) 650 mg Q4H PRN PO PAIN AND OR ELEVATED TEMP Last administered on 09/21/16 20:53; Admin Dose 650 MG; Start 09/18/16 at 02:30 Acetaminophen (Tylenol Tab) 1,000 mg Q6H PRN PO PAIN LEVEL 4-6/10; Start at 02:30 Aspirin (Aspirin) 81 mg DAILY PO Last administered on 09/24/16 08:36; Admin Dose 81 MG; Start 09/18/16 at 09:00 Atorvastatin Calcium (Lipitor) 40 mg QHS PO Last administered on 09/23/16 21:03 ; Admin Dose 40 MG; Start 09/18/16 at 21:00 Carbidopa/Levodopa (Sinemet (25/ 100)) 1 tab BID PO Last administered on 08:38; Admin Dose 1 TAB; Start 09/18/16 at 09:00 Cholecalciferol (Vitamin D) 1,000 unit DAILY PO Last administered on 09/24/16 08:38; Admin Dose 1,000 UNIT; Start 09/18/16 at 09:00 Docusate Sodium (Colace) 100 mg BID PO Last administered on 09/24/16 08:37; Admin Dose 100 MG; Start 09/18/16 at 09:00 Enoxaparin Sodium (Lovenox) 40 mg DAILY SC Last administered on 09/24/16 08:39 ; Admin Dose 40 MG; Start 09/18/16 at 09:00 Famotidine (Pepcid) 20 mg QAM PO Last administered on 09/24/16 08:38; Admin Dose 20 MG; Start 09/18/16 at 09:00 Gabapentin (Neurontin) 100 mg QHS PO Last administered on 09/23/16 21:03; Admin Dose 100 MG; Start 09/18/16 at 21:00 Acetaminophen/ Hydrocodone Bitart ([place] (5/325)) Q6 As needed for pain Q6 PRN PO PAIN 7-10/10; Start 09/18/16 at 02:30 Al Hydrox/Mg Hydrox/Simethicone (Mag-Al Plus) 30 ml Q4 PO Last administered on 09/24/16 17:43; Admin Dose 30 ML; Start 09/18/16 at 05:00 Megestrol Acetate (Megace Susp) 400 mg DAILY PO Last administered on 09/24/16 08:37; Admin Dose 400 MG; Start 09/18/16 at 09:00 Metoprolol Tartrate (Lopressor) 25 mg BID PO Last administered on 09/24/16 08: 37; Admin Dose 25 MG; Start 09/18/16 at 09:00 Polyethylene Glycol (Miralax) 17 gm DAILY PO Last administered on 09/24/16 08: 38; Admin Dose 17 GM; Start 09/18/16 at 09:00 Senna (Senokot) 1 tab QHS PO Last administered on 09/23/16 21:03; Admin Dose 1 TAB; Start 09/18/16 at 21:00 Sodium Chloride (Nacl) 1 gm BID PO Last administered on 09/24/16 08:36; Admin Dose 1 GM; Start 09/18/16 at 09:00 Bisacodyl 10 mg 10 mg Q24H [place] Last administered on 09/24/16 08:38; Admin Dose 10 MG; Start 09/18/16 at 09:00 Levofloxacin/ Dextrose (Levaquin 250 Mg/ D5W 50 ml (Pmx)) 50 ml @ 50 mls/hr Q24H IVPB Last administered on 09/24/16 02:42; Admin Dose 50 MLS/HR; Start 09/19 at 03:30 Metoclopramide HCl (Reglan) 10 mg Q4H PRN IV NAUSEA; Start 09/19/16 at 15:30 Zolpidem Tartrate (Ambien) 5 mg HS PRN PO INSOMNIA Last administered on 21:03; Admin Dose 5 MG; Start 09/20/16 at 18:30 ERMIAS TOBAR Sep 24, 2016 18:12
[2016-09-24 20:00] VITALS: BP 107/54; PULSE 66; RESP 16
[2016-09-24] MEDS: GABAPENTIN 100 MG CAP PO SCH (20:43)
[2016-09-24] MEDS: SENNA TAB PO SCH (20:43)
[2016-09-24] MEDS: ATORVASTATIN 40 MG TAB PO SCH (20:43)
[2016-09-24] MEDS: ZOLPIDEM 5 MG TAB PO PRN (21:13)
[2016-09-24] MEDS: CEFEPIME 1GM/50 ML (PMX) 50 ML IVPB SCH (21:13)
[2016-09-25] MEDS: AL HYDROX/MG HYDROX/SIMETH 30 ML CUP PO SCH ×6 (00:53→21:33)
[2016-09-25] MEDS: PANTOPRAZOLE (EC) 40 MG TAB PO SCH ×2 (05:17→17:35)
[2016-09-25 06:03] LABS: BASOPHILS % 0.2 % (0.0-2.0); EOSINOPHILS # 0.3 10^3/ul (0.0-0.5); EOSINOPHILS % 3.2 % (0.0-7.0); HEMATOCRIT 31.7 % (37.0-47.0); HEMOGLOBIN 10.6 g/dl (12.0-16.0); LYMPHOCYTES # 3.4 10^3/ul (0.8-2.9); LYMPHOCYTES % 33.8 % (15.0-51.0); MEAN CORPUSCULAR HEMOGLOBIN 31.7 pg (29.0-33.0); MEAN CORPUSCULAR HGB CONC 33.6 g/dl (32.0-37.0); MEAN CORPUSCULAR VOLUME 94.5 fl (82.0-101.0); MEAN PLATELET VOLUME 6.5 fl (7.4-10.4); MONOCYTE # 0.8 10^3/ul (0.3-0.9); NEUTROPHIL # 5.5 10^3/ul (1.6-7.5); NEUTROPHILS % 54.8 % (39.0-77.0); PLATELET COUNT 545 10^3/UL (140-440); RED BLOOD COUNT 3.36 10^6/ul (4.20-5.40); RED CELL DISTRIBUTION WIDTH 13.6 % (11.5-14.5)
[2016-09-25 06:42] LABS: POTASSIUM 4.9 mmol/L (3.5-5.1)
[2016-09-25 06:45] LABS: CREATININE 0.72 mg/dl (0.44-1.00)
[2016-09-25 06:46] LABS: CALCIUM 8.9 mg/dl (8.4-10.2)
[2016-09-25 07:10] LABS: CONDITION 1
[2016-09-25 08:31] VITALS: BP 115/56; RESP 18
[2016-09-25] MEDS: METOPROLOL 25 MG TAB PO SCH ×2 (09:00→21:00)
[2016-09-25] MEDS: ENOXAPARIN 40 MG/0.4 ML SYG SC SCH (09:05)
[2016-09-25] MEDS: MEGESTROL (40 MG/ML) 10ML CUP PO SCH (09:05)
[2016-09-25] MEDS: CHOLECALCIFEROL 1,000 UNIT TAB PO SCH (09:05)
[2016-09-25] MEDS: BISACODYL 10 MG SUPP PR SCH (09:05)
[2016-09-25] MEDS: ASPIRIN 81 MG TAB PO SCH (09:05)
[2016-09-25] MEDS: POLYETHYLENE GLYCOL 17 GM PACKET PO SCH (09:05)
[2016-09-25] MEDS: SODIUM CHLORIDE 1 GM TAB PO SCH ×2 (09:05→21:33)
[2016-09-25] MEDS: DOCUSATE SODIUM 100 MG CAP PO SCH ×2 (09:06→21:34)
[2016-09-25] MEDS: CEFEPIME 1GM/50 ML (PMX) 50 ML IVPB SCH ×2 (09:06→21:33)
[2016-09-25] MEDS: CARBIDOPA/LEVODOPA (25/100) TAB PO SCH ×2 (09:06→21:34)
[2016-09-25 16:30] LABS: ADD UMIC YES; URINE BILIRUBIN (Dip) NEGATIVE (NEGATIVE); URINE BLOOD (Dip) TRACE (NEGATIVE); URINE COLOR LT. YELLOW (YELLOW); URINE GLUCOSE (Dip) NEGATIVE (NEGATIVE); URINE KETONES (Dip) NEGATIVE (NEGATIVE); URINE LEUKOCYTE ESTERASE (Dip) 3+ (NEGATIVE); URINE NITRITE (Dip) NEGATIVE (NEGATIVE); URINE TOTAL PROTEIN (Dip) NEGATIVE (NEGATIVE); URINE UROBILINOGEN (Dip) 0.2 E.U./dL (0.1-1.0)
[2016-09-25 17:08] LABS: BACTERIA,URINE FEW; URINE RBCS 0-2 /HPF (0)
[2016-09-25 17:09] LABS: SQUAMOUS EPITHELIAL CELL,UR OCCASIONAL
--- NOTE | 2016-09-25 18:25 | PN ---
Date/Time of Note Date/Time of Note DATE: 09/25/16 TIME: 18:23 Assessment/Plan VTE Prophylaxis VTE Prophylaxis Intervention: SCD's Lines/Catheters IV Catheter Type (from [facility]): [facility] Urinary Cath still in place: No Assessment/Plan Chief Complaint/Hosp Course ASSESSMENT AND PLAN: 1. Urinary tract infection. Continue cefepime. 2. Sepsis secondary to urinary tract infection, resolved. 3. Elevated troponin on admission. Repeat cardiac enzymes series are negative. Dr. King is following in cardiology consultation. 4. Hyponatremia secondary to dehydration and hyperkalemia on admission, resolving. 5. Cervical myelopathy by history. 6. Hypertension by history. 7. Acute encephalopathy, resolving. 8. Anemia. Dr. Tomas is following from gastroenterology consultation. Status post EGD and colonoscopy. Dr. Ambrocio is following from hematology standpoint. 9. Gastritis per EGD. Continue Protonix. 10. DNR status. Continue Protonix for peptic ulcer disease prophylaxis and Lovenox for deep venous thrombosis prophylaxis. Further recommendations based on clinical course. Plan of care discussed with Dr. King. Problems: Subjective 24 Hr Interval Summary Free Text/Dictation Patient looks comfortable, tolerates diet well, no nausea vomiting no fever per RN. Exam/Review of Systems Vital Signs Vitals Vital Signs Date Time Temp Pulse Resp B/P Pulse Ox O2 Delivery O2 Flow Rate FiO2 09/25/16 08:31 97.7 71 18 115/56 97 09/24/16 20:00 Room Air Intake and Output 09/24/16 09/24/16 09/25/16 15:00 23:00 07:00 Intake Total 670 ml 300 ml Balance 670 ml 300 ml Exam GENERAL: Well-developed, well-nourished female, currently is awake, alert to name and situation. HEENT: Head is atraumatic, normocephalic. PERRLA. NECK: Supple, no cervical lymphadenopathy, no thyromegaly. CHEST: Lung sounds are slightly diminished at the bases with mild expiratory wheezes. CARDIOVASCULAR: Normal S1, S2. No murmurs, gallops, clicks, rubs noted. ABDOMEN: Round, soft, nondistended, nontender. Bowel sounds present. There is no guarding, no rebound tenderness. SKIN: There is no rash, petechiae noted. EXTREMITIES: No edema, clubbing, cyanosis. NEUROLOGIC: The patient is awake, alert to name and situation, otherwise confused. Results Result Diagram: 09/25/16 0455 09/25/16 0455 Results 24 hrs Laboratory Tests Test 09/25/16 04:55 09/25/16 15:35 Anion Gap 16 Basophils # 0.0 Basophils % 0.2 Blood Morphology Comment Blood Urea Nitrogen 15 Calcium Level 8.9 Carbon Dioxide Level 24 Chloride Level 102 Creatinine 0.72 Eosinophils # 0.3 Eosinophils % 3.2 Glucose Level 88 Hematocrit 31.7 L Hemoglobin 10.6 L Lymphocytes # 3.4 H Lymphocytes % 33.8 Mean Corpuscular Hemoglobin 31.7 Mean Corpuscular Hemoglobin Concent 33.6 Mean Corpuscular Volume 94.5 Mean Platelet Volume 6.5 L Monocytes # 0.8 Monocytes % 8.0 Neutrophils # 5.5 Neutrophils % 54.8 Nucleated Red Blood Cells # 0.0 Nucleated Red Blood Cells % 0.0 Platelet Count 545 H Potassium Level 4.9 Red Blood Count 3.36 L Red Cell Distribution Width 13.6 Sodium Level 137 White Blood Count 10.0 Urine Bacteria FEW Urine Bilirubin NEGATIVE Urine Clarity CLEAR Urine Color LT. YELLOW Urine Glucose NEGATIVE Urine Hemoglobin TRACE Urine Ketones NEGATIVE Urine Leukocyte Esterase 3+ H Urine Microscopic RBC 0-2 Urine Microscopic WBC 25-50 Urine Nitrite NEGATIVE Urine Specific [place] 1.015 Urine Squamous Epithelial Cells OCCASIONAL Urine Total Protein NEGATIVE Urine Urobilinogen 0.2 E.U./dL Urine WBC Clumps FEW Urine pH 8.0 Medications Medications Current Medications Acetaminophen (Tylenol Tab) 650 mg Q4H PRN PO PAIN AND OR ELEVATED TEMP Last administered on 09/21/16 20:53; Admin Dose 650 MG; Start 09/18/16 at 02:30 Acetaminophen (Tylenol Tab) 1,000 mg Q6H PRN PO PAIN LEVEL 4-6/10; Start at 02:30 Aspirin (Aspirin) 81 mg DAILY PO Last administered on 09/25/16 09:05; Admin Dose 81 MG; Start 09/18/16 at 09:00 Atorvastatin Calcium (Lipitor) 40 mg QHS PO Last administered on 09/24/16 20:43 ; Admin Dose 40 MG; Start 09/18/16 at 21:00 Carbidopa/Levodopa (Sinemet (25/ 100)) 1 tab BID PO Last administered on 09:06; Admin Dose 1 TAB; Start 09/18/16 at 09:00 Cholecalciferol (Vitamin D) 1,000 unit DAILY PO Last administered on 09/25/16 09:05; Admin Dose 1,000 UNIT; Start 09/18/16 at 09:00 Docusate Sodium (Colace) 100 mg BID PO Last administered on 09/25/16 09:06; Admin Dose 100 MG; Start 09/18/16 at 09:00 Enoxaparin Sodium (Lovenox) 40 mg DAILY SC Last administered on 09/25/16 09:05 ; Admin Dose 40 MG; Start 09/18/16 at 09:00 Gabapentin (Neurontin) 100 mg QHS PO Last administered on 09/24/16 20:43; Admin Dose 100 MG; Start 09/18/16 at 21:00 Acetaminophen/ Hydrocodone Bitart ([place] (5/325)) Q6 As needed for pain Q6 PRN PO PAIN -05/28; Start 09/18/16 at 02:30 Al Hydrox/Mg Hydrox/Simethicone (Mag-Al Plus) 30 ml Q4 PO Last administered on 09/25/16 05:17; Admin Dose 30 ML; Start 09/18/16 at 05:00 Megestrol Acetate (Megace Susp) 400 mg DAILY PO Last administered on 09/25/16 09:05; Admin Dose 400 MG; Start 09/18/16 at 09:00 Metoprolol Tartrate (Lopressor) 25 mg BID PO Last administered on 09/24/16 08: 37; Admin Dose 25 MG; Start 09/18/16 at 09:00 Polyethylene Glycol (Miralax) 17 gm DAILY PO Last administered on 09/25/16 09: 05; Admin Dose 17 GM; Start 09/18/16 at 09:00 Senna (Senokot) 1 tab QHS PO Last administered on 09/24/16 20:43; Admin Dose 1 TAB; Start 09/18/16 at 21:00 Sodium Chloride (Nacl) 1 gm BID PO Last administered on 09/25/16 09:05; Admin Dose 1 GM; Start 09/18/16 at 09:00 Bisacodyl (Dulcolax Supp) 10 mg Q24H [place] Last administered on 09/25/16 09:05; Admin Dose 10 MG; Start 09/18/16 at 09:00 Metoclopramide HCl (Reglan) 10 mg Q4H PRN IV NAUSEA; Start 09/19/16 at 15:30 Zolpidem Tartrate 5 mg 5 mg HS PRN PO INSOMNIA Last administered on 09/24/16 21 :13; Admin Dose 5 MG; Start 09/20/16 at 18:30 Cefepime HCl (Maxipime 1gm/50 ml (Pmx)) 50 ml @ 100 mls/hr Q12 IVPB Last administered on 09/25/16 09:06; Admin Dose 100 MLS/HR; Start 09/24/16 at 21:00 Pantoprazole (Protonix Tab) 40 mg BID@06,18 PO Last administered on 09/25/16 17 :35; Admin Dose 40 MG; Start 09/25/16 at 06:00 ERMIAS TOBAR Sep 25, 2016 18:25
[2016-09-25 19:20] VITALS: BP 106/43; RESP 20
[2016-09-25] MEDS: ATORVASTATIN 40 MG TAB PO SCH (21:33)
[2016-09-25] MEDS: GABAPENTIN 100 MG CAP PO SCH (21:33)
[2016-09-25] MEDS: SENNA TAB PO SCH (21:34)
[2016-09-25] MEDS: ZOLPIDEM 5 MG TAB PO PRN (21:57)
[2016-09-26] MEDS: AL HYDROX/MG HYDROX/SIMETH 30 ML CUP PO SCH ×6 (01:00→21:57)
[2016-09-26] MEDS: PANTOPRAZOLE (EC) 40 MG TAB PO SCH ×2 (05:45→18:19)
[2016-09-26 06:29] LABS: BASOPHILS % 0.4 % (0.0-2.0); EOSINOPHILS # 0.3 10^3/ul (0.0-0.5); EOSINOPHILS % 3.3 % (0.0-7.0); HEMATOCRIT 29.5 % (37.0-47.0); LYMPHOCYTES # 3.5 10^3/ul (0.8-2.9); MEAN CORPUSCULAR HEMOGLOBIN 32.1 pg (29.0-33.0); MEAN CORPUSCULAR HGB CONC 33.9 g/dl (32.0-37.0); MEAN CORPUSCULAR VOLUME 94.7 fl (82.0-101.0); MEAN PLATELET VOLUME 6.6 fl (7.4-10.4); MONOCYTE # 0.9 10^3/ul (0.3-0.9); NEUTROPHIL # 5.5 10^3/ul (1.6-7.5); NEUTROPHILS % 53.3 % (39.0-77.0); PLATELET COUNT 502 10^3/UL (140-440); RED BLOOD COUNT 3.12 10^6/ul (4.20-5.40); UNCORRECTED WBC 10.2 10^3/ul (4.8-10.8); WHITE BLOOD COUNT 10.2 10^3/ul (4.8-10.8)
[2016-09-26 06:43] LABS: CONDITION 1
[2016-09-26 06:47] LABS: POTASSIUM 4.7 mmol/L (3.5-5.1)
[2016-09-26 06:49] LABS: CREATININE 0.75 mg/dl (0.44-1.00)
[2016-09-26 06:50] LABS: CALCIUM 8.9 mg/dl (8.4-10.2)
[2016-09-26 07:56] VITALS: BP 106/43; RESP 18
[2016-09-26] MEDS: METOPROLOL 25 MG TAB PO SCH ×2 (09:00→22:06)
[2016-09-26] MEDS: ASPIRIN 81 MG TAB PO SCH (09:30)
[2016-09-26] MEDS: POLYETHYLENE GLYCOL 17 GM PACKET PO SCH (09:30)
[2016-09-26] MEDS: DOCUSATE SODIUM 100 MG CAP PO SCH ×2 (09:30→21:57)
[2016-09-26] MEDS: SODIUM CHLORIDE 1 GM TAB PO SCH ×2 (09:30→21:57)
[2016-09-26] MEDS: CHOLECALCIFEROL 1,000 UNIT TAB PO SCH (09:30)
[2016-09-26] MEDS: BISACODYL 10 MG SUPP PR SCH (09:30)
[2016-09-26] MEDS: MEGESTROL (40 MG/ML) 10ML CUP PO SCH (09:30)
[2016-09-26] MEDS: CARBIDOPA/LEVODOPA (25/100) TAB PO SCH ×2 (09:30→21:57)
[2016-09-26] MEDS: ACETAMINOPHEN 325 MG TAB PO PRN (09:31)
[2016-09-26] MEDS: ENOXAPARIN 40 MG/0.4 ML SYG SC SCH (09:34)
[2016-09-26] MEDS: CEFEPIME 1GM/50 ML (PMX) 50 ML IVPB SCH ×2 (09:44→21:57)
--- NOTE | 2016-09-26 13:36 | CONS ---
Date/Time of Note Date/Time of Note DATE: 09/26/16 TIME: 13:32 Assessment/Plan Assessment/Plan Additional Assessment/Plan Sepsis secondary to UTI Mildly elevated troponin Preserved ejection fraction History of hypertension Dyslipidemia Parkinson's Anemia -Blood pressure has been on the lower side, beta tyler with holding parameters. Continue aspirin if no contraindication. Continue statin therapy. Consultation Date/Type/Reason Admit Date/Time Sep 17, 2016 at 22:36 Initial Consult Date 09/19/16 Type of Consultation: cv Referring Provider: SUJATHA WILLETT MD 24 HR Interval Summary Free Text/Dictation Patient denies shortness of breath, chest pain or palpitations Exam/Review of Systems Vital Signs Vitals Vital Signs Date Time Temp Pulse Resp B/P Pulse Ox O2 Delivery O2 Flow Rate FiO2 09/26/16 07:56 97.7 67 18 106/43 94 09/24/16 20:00 Room Air Intake and Output 09/25/16 09/25/16 09/26/16 14:59 22:59 06:59 Intake Total 50 ml 740 ml 400 ml Balance 50 ml 740 ml 400 ml Exam No apparent distress Constitutional: alert, oriented Head: normocephalic Neck: supple Respiratory: other (course breath sounds bilaterally, no wheezing) Cardiovascular: other (S1-S2 heard), regular rate and rhythm Gastrointestinal: bowel sounds, non-tender, soft Extremities: edema (trace) Results Result Diagram: 09/26/16 0525 09/26/16 0525 Results 24 hrs Laboratory Tests Test 09/25/16 15:35 09/26/16 05:25 Urine Bacteria FEW Urine Bilirubin NEGATIVE Urine Clarity CLEAR Urine Color LT. YELLOW Urine Glucose NEGATIVE Urine Hemoglobin TRACE Urine Ketones NEGATIVE Urine Leukocyte Esterase 3+ H Urine Microscopic RBC 0-2 Urine Microscopic WBC 25-50 Urine Nitrite NEGATIVE Urine Specific [place] 1.015 Urine Squamous Epithelial Cells OCCASIONAL Urine Total Protein NEGATIVE Urine Urobilinogen 0.2 E.U./dL Urine WBC Clumps FEW Urine pH 8.0 Anion Gap 16 Basophils # 0.0 Basophils % 0.4 Blood Morphology Comment Blood Urea Nitrogen 15 Calcium Level 8.9 Carbon Dioxide Level 23 Chloride Level 103 Creatinine 0.75 Eosinophils # 0.3 Eosinophils % 3.3 Glucose Level 92 Hematocrit 29.5 L Hemoglobin 10.0 L Lymphocytes # 3.5 H Lymphocytes % 34.0 Mean Corpuscular Hemoglobin 32.1 Mean Corpuscular Hemoglobin Concent 33.9 Mean Corpuscular Volume 94.7 Mean Platelet Volume 6.6 L Monocytes # 0.9 Monocytes % 9.0 Neutrophils # 5.5 Neutrophils % 53.3 Nucleated Red Blood Cells # 0.0 Nucleated Red Blood Cells % 0.0 Platelet Count 502 H Potassium Level 4.7 Red Blood Count 3.12 L Red Cell Distribution Width 14.0 Sodium Level 137 White Blood Count 10.2 Medications Medications Current Medications Acetaminophen (Tylenol Tab) 650 mg Q4H PRN PO PAIN AND OR ELEVATED TEMP Last administered on 09/26/16 09:31; Admin Dose 650 MG; Start 09/18/16 at 02:30 Acetaminophen (Tylenol Tab) 1,000 mg Q6H PRN PO PAIN LEVEL 4-610; Start at 02:30 Aspirin (Aspirin) 81 mg DAILY PO Last administered on 09/26/16 09:30; Admin Dose 81 MG; Start 09/18/16 at 09:00 Atorvastatin Calcium (Lipitor) 40 mg QHS PO Last administered on 09/25/16 21:33 ; Admin Dose 40 MG; Start 09/18/16 at 21:00 Carbidopa/Levodopa (Sinemet (25/ 100)) 1 tab BID PO Last administered on 09:30; Admin Dose 1 TAB; Start 09/18/16 at 09:00 Cholecalciferol (Vitamin D) 1,000 unit DAILY PO Last administered on 09/26/16 09:30; Admin Dose 1,000 UNIT; Start 09/18/16 at 09:00 Docusate Sodium (Colace) 100 mg BID PO Last administered on 09/26/16 09:30; Admin Dose 100 MG; Start 09/18/16 at 09:00 Enoxaparin Sodium (Lovenox) 40 mg DAILY SC Last administered on 09/26/16 09:34 ; Admin Dose 40 MG; Start 09/18/16 at 09:00 Gabapentin (Neurontin) 100 mg QHS PO Last administered on 09/25/16 21:33; Admin Dose 100 MG; Start 09/18/16 at 21:00 Acetaminophen/ Hydrocodone Bitart ([place] (5/325)) Q6 As needed for pain Q6 PRN PO PAIN 7-1010; Start 09/18/16 at 02:30 Al Hydrox/Mg Hydrox/Simethicone (Mag-Al Plus) 30 ml Q4 PO Last administered on 09/26/16 05:45; Admin Dose 30 ML; Start 09/18/16 at 05:00 Megestrol Acetate (Megace Susp) 400 mg DAILY PO Last administered on 09/26/16 09:30; Admin Dose 400 MG; Start 09/18/16 at 09:00 Metoprolol Tartrate (Lopressor) 25 mg BID PO Last administered on 09/24/16 08: 37; Admin Dose 25 MG; Start 09/18/16 at 09:00 Polyethylene Glycol (Miralax) 17 gm DAILY PO Last administered on 09/26/16 09: 30; Admin Dose 17 GM; Start 09/18/16 at 09:00 Senna (Senokot) 1 tab QHS PO Last administered on 09/25/16 21:34; Admin Dose 1 TAB; Start 09/18/16 at 21:00 Sodium Chloride (Nacl) 1 gm BID PO Last administered on 09/26/16 09:30; Admin Dose 1 GM; Start 09/18/16 at 09:00 Bisacodyl (Dulcolax Supp) 10 mg Q24H [place] Last administered on 09/26/16 09:30; Admin Dose 10 MG; Start 09/18/16 at 09:00 Metoclopramide HCl (Reglan) 10 mg Q4H PRN IV NAUSEA; Start 09/19/16 at 15:30 Zolpidem Tartrate 5 mg 5 mg HS PRN PO INSOMNIA Last administered on 09/25/16 21 :57; Admin Dose 5 MG; Start 09/20/16 at 18:30 Cefepime HCl (Maxipime 1gm/50 ml (Pmx)) 50 ml @ 100 mls/hr Q12 IVPB Last administered on 09/26/16 09:44; Admin Dose 100 MLS/HR; Start 09/24/16 at 21:00 Pantoprazole (Protonix Tab) 40 mg BID@06,18 PO Last administered on 09/26/16 05 :45; Admin Dose 40 MG; Start 09/25/16 at 06:00 Israel King DO Sep 26, 2016 13:36
--- NOTE | 2016-09-26 18:27 | PN ---
Date/Time of Note Date/Time of Note DATE: 09/26/16 TIME: 18:25 Assessment/Plan VTE Prophylaxis VTE Prophylaxis Intervention: SCD's Lines/Catheters [facility] Urinary Cath still in place: No Assessment/Plan Chief Complaint/Hosp Course ASSESSMENT AND PLAN: 1. Urinary tract infection. Continue cefepime. 2. Sepsis secondary to urinary tract infection, resolved. 3. Elevated troponin on admission. Repeat cardiac enzymes series are negative. Dr. King is following in cardiology consultation. 4. Hyponatremia secondary to dehydration and hyperkalemia on admission, resolving. 5. Cervical myelopathy by history. 6. Hypertension by history. 7. Acute encephalopathy, resolving. 8. Anemia. Dr. Tomas is following from gastroenterology consultation. Status post EGD and colonoscopy. Dr. Ambrocio is following from hematology standpoint. 9. Gastritis per EGD. Continue Protonix. 10. DNR status. DC planning Continue Protonix for peptic ulcer disease prophylaxis and Lovenox for deep venous thrombosis prophylaxis. Further recommendations based on clinical course. Plan of care discussed with Dr. King. Problems: Exam/Review of Systems Vital Signs Vitals Vital Signs Date Time Temp Pulse Resp B/P Pulse Ox O2 Delivery O2 Flow Rate FiO2 09/26/16 07:56 97.7 67 18 106/43 94 09/24/16 20:00 Room Air Intake and Output 09/25/16 09/25/16 09/26/16 15:00 23:00 07:00 Intake Total 50 ml 740 ml 400 ml Balance 50 ml 740 ml 400 ml Exam GENERAL: Well-developed, well-nourished female, currently is awake, alert to name and situation. HEENT: Head is atraumatic, normocephalic. PERRLA. NECK: Supple, no cervical lymphadenopathy, no thyromegaly. CHEST: Lung sounds are slightly diminished at the bases with mild expiratory wheezes. CARDIOVASCULAR: Normal S1, S2. No murmurs, gallops, clicks, rubs noted. ABDOMEN: Round, soft, nondistended, nontender. Bowel sounds present. There is no guarding, no rebound tenderness. SKIN: There is no rash, petechiae noted. EXTREMITIES: No edema, clubbing, cyanosis. NEUROLOGIC: The patient is awake, alert to name and situation, otherwise confused. Results Result Diagram: 2/8/17 0525 09/26/16 0525 Results 24 hrs Laboratory Tests Test 09/26/16 05:25 Anion Gap 16 Basophils # 0.0 Basophils % 0.4 Blood Morphology Comment Blood Urea Nitrogen 15 Calcium Level 8.9 Carbon Dioxide Level 23 Chloride Level 103 Creatinine 0.75 Eosinophils # 0.3 Eosinophils % 3.3 Glucose Level 92 Hematocrit 29.5 L Hemoglobin 10.0 L Lymphocytes # 3.5 H Lymphocytes % 34.0 Mean Corpuscular Hemoglobin 32.1 Mean Corpuscular Hemoglobin Concent 33.9 Mean Corpuscular Volume 94.7 Mean Platelet Volume 6.6 L Monocytes # 0.9 Monocytes % 9.0 Neutrophils # 5.5 Neutrophils % 53.3 Nucleated Red Blood Cells # 0.0 Nucleated Red Blood Cells % 0.0 Platelet Count 502 H Potassium Level 4.7 Red Blood Count 3.12 L Red Cell Distribution Width 14.0 Sodium Level 137 White Blood Count 10.2 Medications Medications Current Medications Acetaminophen (Tylenol Tab) 650 mg Q4H PRN PO PAIN AND OR ELEVATED TEMP Last administered on 09/26/16 09:31; Admin Dose 650 MG; Start 09/18/16 at 02:30 Acetaminophen (Tylenol Tab) 1,000 mg Q6H PRN PO PAIN LEVEL 4-6/10; Start at 02:30 Aspirin (Aspirin) 81 mg DAILY PO Last administered on 09/26/16 09:30; Admin Dose 81 MG; Start 09/18/16 at 09:00 Atorvastatin Calcium (Lipitor) 40 mg QHS PO Last administered on 09/25/16 21:33 ; Admin Dose 40 MG; Start 09/18/16 at 21:00 Carbidopa/Levodopa (Sinemet (25/ 100)) 1 tab BID PO Last administered on 09:30; Admin Dose 1 TAB; Start 09/18/16 at 09:00 Cholecalciferol (Vitamin D) 1,000 unit DAILY PO Last administered on 09/26/16 09:30; Admin Dose 1,000 UNIT; Start 09/18/16 at 09:00 Docusate Sodium (Colace) 100 mg BID PO Last administered on 09/26/16 09:30; Admin Dose 100 MG; Start 09/18/16 at 09:00 Enoxaparin Sodium (Lovenox) 40 mg DAILY SC Last administered on 09/26/16 09:34 ; Admin Dose 40 MG; Start 09/18/16 at 09:00 Gabapentin (Neurontin) 100 mg QHS PO Last administered on 09/25/16 21:33; Admin Dose 100 MG; Start 09/18/16 at 21:00 Acetaminophen/ Hydrocodone Bitart ([place] (5/325)) Q6 As needed for pain Q6 PRN PO PAIN 7-05/28; Start 09/18/16 at 02:30 Al Hydrox/Mg Hydrox/Simethicone (Mag-Al Plus) 30 ml Q4 PO Last administered on 09/26/16 05:45; Admin Dose 30 ML; Start 09/18/16 at 05:00 Megestrol Acetate (Megace Susp) 400 mg DAILY PO Last administered on 09/26/16 09:30; Admin Dose 400 MG; Start 09/18/16 at 09:00 Polyethylene Glycol (Miralax) 17 gm DAILY PO Last administered on 09/26/16 09: 30; Admin Dose 17 GM; Start 09/18/16 at 09:00 Senna (Senokot) 1 tab QHS PO Last administered on 09/25/16 21:34; Admin Dose 1 TAB; Start 09/18/16 at 21:00 Sodium Chloride (Nacl) 1 gm BID PO Last administered on 09/26/16 09:30; Admin Dose 1 GM; Start 09/18/16 at 09:00 Bisacodyl (Dulcolax Supp) 10 mg Q24H OR Last administered on 09/26/16 09:30; Admin Dose 10 MG; Start 09/18/16 at 09:00 Metoclopramide HCl (Reglan) 10 mg Q4H PRN IV NAUSEA; Start 09/19/16 at 15:30 Zolpidem Tartrate 5 mg 5 mg HS PRN PO INSOMNIA Last administered on 09/25/16 21 :57; Admin Dose 5 MG; Start 09/20/16 at 18:30 Cefepime HCl (Maxipime 1gm/50 ml (Pmx)) 50 ml @ 100 mls/hr Q12 IVPB Last administered on 09/26/16 09:44; Admin Dose 100 MLS/HR; Start 09/24/16 at 21:00 Pantoprazole (Protonix Tab) 40 mg BID@06,18 PO Last administered on 09/26/16t 18 :19; Admin Dose 40 MG; Start 09/25/16 at 06:00 Metoprolol Tartrate (Lopressor) 12.5 mg BID PO ; Start 09/26/16 at 21:00 ERMIAS TOBAR Sep 26, 2016 18:27
[2016-09-26 20:23] VITALS: BP 96/53; RESP 20
[2016-09-26] MEDS: SENNA TAB PO SCH (21:57)
[2016-09-26] MEDS: ATORVASTATIN 40 MG TAB PO SCH (21:57)
[2016-09-26] MEDS: GABAPENTIN 100 MG CAP PO SCH (21:57)
[2016-09-26] MEDS: ZOLPIDEM 5 MG TAB PO PRN (22:04)
[2016-09-27] MEDS: AL HYDROX/MG HYDROX/SIMETH 30 ML CUP PO SCH ×6 (01:00→22:13)
[2016-09-27] MEDS: PANTOPRAZOLE (EC) 40 MG TAB PO SCH ×2 (05:34→18:00)
[2016-09-27 08:22] VITALS: BP 96/54; RESP 18
[2016-09-27] MEDS: METOPROLOL 25 MG TAB PO SCH (09:00)
[2016-09-27] MEDS: ENOXAPARIN 40 MG/0.4 ML SYG SC SCH (09:23)
[2016-09-27] MEDS: CEFEPIME 1GM/50 ML (PMX) 50 ML IVPB SCH (09:23)
[2016-09-27] MEDS: SODIUM CHLORIDE 1 GM TAB PO SCH ×2 (09:24→22:13)
[2016-09-27] MEDS: MEGESTROL (40 MG/ML) 10ML CUP PO SCH (09:24)
[2016-09-27] MEDS: POLYETHYLENE GLYCOL 17 GM PACKET PO SCH (09:24)
[2016-09-27] MEDS: ASPIRIN 81 MG TAB PO SCH (09:24)
[2016-09-27] MEDS: CARBIDOPA/LEVODOPA (25/100) TAB PO SCH ×2 (09:24→22:13)
[2016-09-27] MEDS: DOCUSATE SODIUM 100 MG CAP PO SCH ×2 (09:24→22:13)
[2016-09-27] MEDS: CHOLECALCIFEROL 1,000 UNIT TAB PO SCH (09:24)
[2016-09-27] MEDS: BISACODYL 10 MG SUPP PR SCH (09:24)
--- NOTE | 2016-09-27 12:33 | PN ---
Date/Time of Note Date/Time of Note DATE: 09/27/16 TIME: 12:28 Assessment/Plan VTE Prophylaxis VTE Prophylaxis Intervention: LMWH Lines/Catheters [facility] Saline Lock Urinary Cath still in place: No Assessment/Plan Assessment/Plan DO NOT RESUSCITATE 1. GNR Urinary tract infection with MORGANELLA MORGANII SSP MORG. and K PNEUMMO ESBL. - Continue patient on Levaquin. 2. 2. Sepsis secondary to urinary tract infection, resolved. 3. Elevated troponin on admission. - Repeat cardiac enzymes series negative. - Dr. King is following in cardiology consultation. 4. Hyponatremia secondary to dehydration and hyperkalemia on admission, resolving. 5. Cervical myelopathy by history. 6. Hypertension by history. 7. Acute encephalopathy, resolving. 8. Anemia. - per Dr. Tomas from gastroenterology consultation. - Pending endoscopy. - per Dr. Ambrocio is following from hematology standpoint 9. Gastritis per EGD. Continue Protonix DC planning- awaiting for bed availability Continue Protonix for peptic ulcer disease prophylaxis and Lovenox for deep venous thrombosis prophylaxis. Further recommendations based on clinical course. Plan of care discussed with Dr. King. Subjective 24 Hr Interval Summary ENT: no complaints Exam/Review of Systems Vital Signs Vitals Vital Signs Date Time Temp Pulse Resp B/P Pulse Ox O2 Delivery O2 Flow Rate FiO2 09/27/16 08:22 97.9 74 18 96/54 97 09/24/16 20:00 Room Air Intake and Output 09/26/16 09/26/16 09/27/16 15:00 23:00 07:00 Intake Total 50 ml 750 ml 300 ml Balance 50 ml 750 ml 300 ml Exam Constitutional: alert, non-verbal Head: atraumatic Eyes: nl sclera ENMT: nl external ears & nose Neck: non-tender Respiratory: diminished breath sounds Cardiovascular: nl pulses Gastrointestinal: non-tender, soft Musculoskeletal: muscle weakness Results Result Diagram: 09/26/16 0525 09/26/16 0525 Medications Medications Current Medications Acetaminophen (Tylenol Tab) 650 mg Q4H PRN PO PAIN AND OR ELEVATED TEMP Last administered on 09/26/16t 09:31; Admin Dose 650 MG; Start 09/18/16 at 02:30 Acetaminophen (Tylenol Tab) 1,000 mg Q6H PRN PO PAIN LEVEL 4-6/10; Start at 02:30 Aspirin (Aspirin) 81 mg DAILY PO Last administered on 09/27/16 09:24; Admin Dose 81 MG; Start 09/18/16 at 09:00 Atorvastatin Calcium (Lipitor) 40 mg QHS PO Last administered on 09/26/16 21:57 ; Admin Dose 40 MG; Start 09/18/16 at 21:00 Carbidopa/Levodopa (Sinemet (25/ 100)) 1 tab BID PO Last administered on 09:24; Admin Dose 1 TAB; Start 09/18/16 at 09:00 Cholecalciferol (Vitamin D) 1,000 unit DAILY PO Last administered on 09/27/16 09:24; Admin Dose 1,000 UNIT; Start 09/18/16 at 09:00 Docusate Sodium (Colace) 100 mg BID PO Last administered on 09/27/16 09:24; Admin Dose 100 MG; Start 09/18/16 at 09:00 Enoxaparin Sodium (Lovenox) 40 mg DAILY SC Last administered on 09/27/16 09:23 ; Admin Dose 40 MG; Start 09/18/16 at 09:00 Gabapentin (Neurontin) 100 mg QHS PO Last administered on 09/26/16 21:57; Admin Dose 100 MG; Start 09/18/16 at 21:00 Acetaminophen/ Hydrocodone Bitart ([place] (5/325)) Q6 As needed for pain Q6 PRN PO PAIN 7-10/10; Start 09/18/16 at 02:30 Al Hydrox/Mg Hydrox/Simethicone (Mag-Al Plus) 30 ml Q4 PO Last administered on 09/27/16 09:24; Admin Dose 30 ML; Start 09/18/16 at 05:00 Megestrol Acetate (Megace Susp) 400 mg DAILY PO Last administered on 09/27/16 09:24; Admin Dose 400 MG; Start 09/18/16 at 09:00 Polyethylene Glycol (Miralax) 17 gm DAILY PO Last administered on 09/27/16 09: 24; Admin Dose 17 GM; Start 09/18/16 at 09:00 Senna (Senokot) 1 tab QHS PO Last administered on 09/26/16 21:57; Admin Dose 1 TAB; Start 09/18/16 at 21:00 Sodium Chloride (Nacl) 1 gm BID PO Last administered on 09/27/16 09:24; Admin Dose 1 GM; Start 09/18/16 at 09:00 Bisacodyl (Dulcolax Supp) 10 mg Q24H [place] Last administered on 09/27/16 09:24; Admin Dose 10 MG; Start 09/18/16 at 09:00 Metoclopramide HCl (Reglan) 10 mg Q4H PRN IV NAUSEA; Start 09/19/16 at 15:30 Zolpidem Tartrate 5 mg 5 mg HS PRN PO INSOMNIA Last administered on 09/26/16 22 :04; Admin Dose 5 MG; Start 09/20/16 at 18:30 Cefepime HCl (Maxipime 1gm/50 ml (Pmx)) 50 ml @ 100 mls/hr Q12 IVPB Last administered on 09/27/16 09:23; Admin Dose 100 MLS/HR; Start 09/24/16 at 21:00 Pantoprazole (Protonix Tab) 40 mg BID@06,18 PO Last administered on 09/27/16 05 :34; Admin Dose 40 MG; Start 09/25/16 at 06:00 Metoprolol Tartrate (Lopressor) 12.5 mg BID PO ; Start 09/26/16 at 21:00 ABBY JOEL Sep 27, 2016 12:33
--- NOTE | 2016-09-27 18:39 | CONS ---
Date/Time of Note Date/Time of Note DATE: 09/27/16 TIME: 18:38 Assessment/Plan Assessment/Plan Additional Assessment/Plan Sepsis secondary to UTI Mildly elevated troponin Preserved ejection fraction History of hypertension Dyslipidemia Parkinson's Anemia -Blood pressure has remained on the lower side, will DC beta-tyler. Continue aspirin if no contraindication. Continue statin therapy. Consultation Date/Type/Reason Admit Date/Time Sep 17, 2016 at 22:36 Initial Consult Date 09/19/16 Type of Consultation: cv Referring Provider: SUJATHA WILLETT MD 24 HR Interval Summary Free Text/Dictation Patient denies shortness of breath, chest pain Exam/Review of Systems Vital Signs Vitals Vital Signs Date Time Temp Pulse Resp B/P Pulse Ox O2 Delivery O2 Flow Rate FiO2 09/27/16 08:22 97.9 74 18 96/54 97 09/24/16 20:00 Room Air Intake and Output 09/26/16 09/26/16 09/27/16 15:00 23:00 07:00 Intake Total 50 ml 750 ml 300 ml Balance 50 ml 750 ml 300 ml Exam Follows commands, no apparent distress Constitutional: alert, oriented Head: normocephalic Neck: supple Respiratory: other (Coarse breath sounds bilaterally, no wheezing) Cardiovascular: other (S1-S2 heard), regular rate and rhythm Gastrointestinal: bowel sounds, non-tender, other (No guarding), soft Extremities: edema (Trace) Results Result Diagram: 09/26/1625 09/26/1625 Medications Medications Current Medications Acetaminophen (Tylenol Tab) 650 mg Q4H PRN PO PAIN AND OR ELEVATED TEMP Last administered on 09/26/16 09:31; Admin Dose 650 MG; Start 09/18/16 at 02:30 Acetaminophen (Tylenol Tab) 1,000 mg Q6H PRN PO PAIN LEVEL 4-6/10; Start at 02:30 Aspirin (Aspirin) 81 mg DAILY PO Last administered on 09/27/16 09:24; Admin Dose 81 MG; Start 09/18/16 at 09:00 Atorvastatin Calcium (Lipitor) 40 mg QHS PO Last administered on 09/26/16 21:57 ; Admin Dose 40 MG; Start 09/18/16 at 21:00 Carbidopa/Levodopa (Sinemet (25/ 100)) 1 tab BID PO Last administered on 09:24; Admin Dose 1 TAB; Start 09/18/16 at 09:00 Cholecalciferol (Vitamin D) 1,000 unit DAILY PO Last administered on 09/27/16 09:24; Admin Dose 1,000 UNIT; Start 09/18/16 at 09:00 Docusate Sodium (Colace) 100 mg BID PO Last administered on 09/27/16 09:24; Admin Dose 100 MG; Start 09/18/16 at 09:00 Enoxaparin Sodium (Lovenox) 40 mg DAILY SC Last administered on 09/27/16 09:23 ; Admin Dose 40 MG; Start 09/18/16 at 09:00 Gabapentin (Neurontin) 100 mg QHS PO Last administered on 09/26/16 21:57; Admin Dose 100 MG; Start 09/18/16 at 21:00 Acetaminophen/ Hydrocodone Bitart ([place] (5/325)) Q6 As needed for pain Q6 PRN PO PAIN 7-05/28; Start 09/18/16 at 02:30 Al Hydrox/Mg Hydrox/Simethicone (Mag-Al Plus) 30 ml Q4 PO Last administered on 09/27/16 18:00; Admin Dose 30 ML; Start 09/18/16 at 05:00 Megestrol Acetate (Megace Susp) 400 mg DAILY PO Last administered on 09/27/16 09:24; Admin Dose 400 MG; Start 09/18/16 at 09:00 Polyethylene Glycol (Miralax) 17 gm DAILY PO Last administered on 09/27/16 09: 24; Admin Dose 17 GM; Start 09/18/16 at 09:00 Senna (Senokot) 1 tab QHS PO Last administered on 09/26/16 21:57; Admin Dose 1 TAB; Start 09/18/16 at 21:00 Sodium Chloride (Nacl) 1 gm BID PO Last administered on 09/27/16 09:24; Admin Dose 1 GM; Start 09/18/16 at 09:00 Bisacodyl (Dulcolax Supp) 10 mg Q24H [place] Last administered on 09/27/16 09:24; Admin Dose 10 MG; Start 09/18/16 at 09:00 Metoclopramide HCl (Reglan) 10 mg Q4H PRN IV NAUSEA; Start 09/19/16 at 15:30 Zolpidem Tartrate (Ambien) 5 mg HS PRN PO INSOMNIA Last administered on 22:04; Admin Dose 5 MG; Start 09/20/16 at 18:30 Pantoprazole (Protonix Tab) 40 mg BID@06,18 PO Last administered on 09/27/16 18 :00; Admin Dose 40 MG; Start 09/25/16 at 06:00 Metoprolol Tartrate (Lopressor) 12.5 mg BID PO ; Start 09/26/16 at 21:00 Israel King DO Sep 27, 2016 18:39
[2016-09-27 21:27] VITALS: BP 96/49; RESP 20
[2016-09-27] MEDS: SENNA TAB PO SCH (22:14)
[2016-09-27] MEDS: ATORVASTATIN 40 MG TAB PO SCH (22:14)
[2016-09-27] MEDS: GABAPENTIN 100 MG CAP PO SCH (22:14)
[2016-09-27] MEDS: ZOLPIDEM 5 MG TAB PO PRN (22:14)
[2016-09-28] MEDS: AL HYDROX/MG HYDROX/SIMETH 30 ML CUP PO SCH ×6 (01:00→21:08)
[2016-09-28 05:56] LABS: ADD SCAN DIFF NO
[2016-09-28] MEDS: PANTOPRAZOLE (EC) 40 MG TAB PO SCH ×2 (05:59→17:26)
[2016-09-28 06:33] LABS: POTASSIUM 5.1 mmol/L (3.5-5.1)
[2016-09-28 06:35] LABS: CREATININE 0.69 mg/dl (0.44-1.00)
[2016-09-28 06:36] LABS: CALCIUM 8.8 mg/dl (8.4-10.2)
[2016-09-28 06:48] LABS: BASOPHILS % 0.1 % (0.0-2.0); EOSINOPHILS # 0.4 10^3/ul (0.0-0.5); HEMATOCRIT 32.8 % (37.0-47.0); HEMOGLOBIN 10.5 g/dl (12.0-16.0); LYMPHOCYTES # 3.7 10^3/ul (0.8-2.9); LYMPHOCYTES % 39.8 % (15.0-51.0); MEAN CORPUSCULAR HEMOGLOBIN 30.7 pg (29.0-33.0); MEAN CORPUSCULAR VOLUME 95.9 fl (82.0-101.0); MEAN PLATELET VOLUME 9.6 fl (7.4-10.4); MONOCYTE # 0.7 10^3/ul (0.3-0.9); NEUTROPHIL # 4.4 10^3/ul (1.6-7.5); PLATELET COUNT 336 10^3/UL (140-415); RED BLOOD COUNT 3.42 10^6/ul (4.20-5.40); RED CELL DISTRIBUTION WIDTH 13.9 % (11.5-14.5); WHITE BLOOD COUNT 9.3 10^3/ul (4.8-10.8)
[2016-09-28 08:24] VITALS: BP 101/47; RESP 20
[2016-09-28] MEDS: BISACODYL 10 MG SUPP PR SCH (09:39)
[2016-09-28] MEDS: SODIUM CHLORIDE 1 GM TAB PO SCH ×2 (09:39→21:08)
[2016-09-28] MEDS: CHOLECALCIFEROL 1,000 UNIT TAB PO SCH (09:40)
[2016-09-28] MEDS: CARBIDOPA/LEVODOPA (25/100) TAB PO SCH ×2 (09:40→21:09)
[2016-09-28] MEDS: DOCUSATE SODIUM 100 MG CAP PO SCH ×2 (09:40→21:08)
[2016-09-28] MEDS: POLYETHYLENE GLYCOL 17 GM PACKET PO SCH (09:40)
[2016-09-28] MEDS: ENOXAPARIN 40 MG/0.4 ML SYG SC SCH (09:40)
[2016-09-28] MEDS: MEGESTROL (40 MG/ML) 10ML CUP PO SCH (09:41)
[2016-09-28] MEDS: ASPIRIN 81 MG TAB PO SCH (09:41)
--- NOTE | 2016-09-28 14:53 | CONS ---
Date/Time of Note Date/Time of Note DATE: 09/28/16 TIME: 14:51 Assessment/Plan Assessment/Plan Additional Assessment/Plan Sepsis secondary to UTI Mildly elevated troponin Preserved ejection fraction History of hypertension Dyslipidemia Parkinson's Anemia -Blood pressure trend remained stable. Continue aspirin and statin therapy if no contraindication. Consultation Date/Type/Reason Admit Date/Time Sep 17, 2016 at 22:36 Initial Consult Date 09/19/16 Type of Consultation: cv Referring Provider: SUJATHA WILLETT MD 24 HR Interval Summary Free Text/Dictation Denies shortness of breath, chest pain or palpitations Exam/Review of Systems Vital Signs Vitals Vital Signs Date Time Temp Pulse Resp B/P Pulse Ox O2 Delivery O2 Flow Rate FiO2 09/28/16 08:24 98.9 70 20 101/47 97 09/24/16 20:00 Room Air Intake and Output 09/27/16 09/27/16 09/28/16 15:00 23:00 07:00 Intake Total 900 ml 300 ml Balance 900 ml 300 ml Exam No apparent distress, follows commands Constitutional: alert Head: normocephalic Neck: supple Respiratory: other (Coarse breath sounds bilaterally, no wheezing) Cardiovascular: other (S1-S2 heard), regular rate and rhythm Gastrointestinal: bowel sounds, non-tender, soft Extremities: other (No edema) Results Result Diagram: 09/28/16 0450 09/28/16 0450 Results 24 hrs Laboratory Tests Test 09/28/16 04:50 Anion Gap 16 Basophils # 0.0 Basophils % 0.1 Blood Urea Nitrogen 16 Calcium Level 8.8 Carbon Dioxide Level 24 Chloride Level 103 Creatinine 0.69 Eosinophils # 0.4 Eosinophils % 4.0 Glucose Level 79 Hematocrit 32.8 L Hemoglobin 10.5 L Lymphocytes # 3.7 H Lymphocytes % 39.8 Mean Corpuscular Hemoglobin 30.7 Mean Corpuscular Hemoglobin Concent 32.0 Mean Corpuscular Volume 95.9 Mean Platelet Volume 9.6 # Monocytes # 0.7 Monocytes % 8.0 Neutrophils # 4.4 Neutrophils % 47.0 Nucleated Red Blood Cells # 0.0 Nucleated Red Blood Cells % 0.0 Platelet Count 336 Potassium Level 5.1 Red Blood Count 3.42 L Red Cell Distribution Width 13.9 Sodium Level 138 White Blood Count 9.3 Medications Medications Current Medications Acetaminophen (Tylenol Tab) 650 mg Q4H PRN PO PAIN AND OR ELEVATED TEMP Last administered on 09/26/16 09:31; Admin Dose 650 MG; Start 09/18/16 at 02:30 Acetaminophen (Tylenol Tab) 1,000 mg Q6H PRN PO PAIN LEVEL 4-6/10; Start at 02:30 Aspirin (Aspirin) 81 mg DAILY PO Last administered on 09/28/16 09:41; Admin Dose 81 MG; Start 09/18/16 at 09:00 Atorvastatin Calcium (Lipitor) 40 mg QHS PO Last administered on 09/27/16 22:14 ; Admin Dose 40 MG; Start 09/18/16 at 21:00 Carbidopa/Levodopa (Sinemet (25/ 100)) 1 tab BID PO Last administered on 09:40; Admin Dose 1 TAB; Start 09/18/16 at 09:00 Cholecalciferol (Vitamin D) 1,000 unit DAILY PO Last administered on 09/28/16 09:40; Admin Dose 1,000 UNIT; Start 09/18/16 at 09:00 Docusate Sodium (Colace) 100 mg BID PO Last administered on 09/28/16 09:40; Admin Dose 100 MG; Start 09/18/16 at 09:00 Enoxaparin Sodium (Lovenox) 40 mg DAILY SC Last administered on 09/28/16 09:40 ; Admin Dose 40 MG; Start 09/18/16 at 09:00 Gabapentin (Neurontin) 100 mg QHS PO Last administered on 09/27/16 22:14; Admin Dose 100 MG; Start 09/18/16 at 21:00 Acetaminophen/ Hydrocodone Bitart ([place] (5/325)) Q6 As needed for pain Q6 PRN PO PAIN 7-10/10; Start 09/18/16 at 02:30 Al Hydrox/Mg Hydrox/Simethicone (Mag-Al Plus) 30 ml Q4 PO Last administered on 09/28/16 09:39; Admin Dose 30 ML; Start 09/18/16 at 05:00 Megestrol Acetate (Megace Susp) 400 mg DAILY PO Last administered on 09/28/16 09:41; Admin Dose 400 MG; Start 09/18/16 at 09:00 Polyethylene Glycol (Miralax) 17 gm DAILY PO Last administered on 09/28/16 09: 40; Admin Dose 17 GM; Start 09/18/16 at 09:00 Senna (Senokot) 1 tab QHS PO Last administered on 09/27/16 22:14; Admin Dose 1 TAB; Start 09/18/16 at 21:00 Sodium Chloride (Nacl) 1 gm BID PO Last administered on 09/28/16 09:39; Admin Dose 1 GM; Start 09/18/16 at 09:00 Bisacodyl (Dulcolax Supp) 10 mg Q24H [place] Last administered on 09/28/16 09:39; Admin Dose 10 MG; Start 09/18/16 at 09:00 Metoclopramide HCl (Reglan) 10 mg Q4H PRN IV NAUSEA; Start 09/19/16 at 15:30 Zolpidem Tartrate (Ambien) 5 mg HS PRN PO INSOMNIA Last administered on 22:14; Admin Dose 5 MG; Start 09/20/16 at 18:30 Pantoprazole (Protonix Tab) 40 mg BID@06,18 PO Last administered on 09/28/16 05:59; Admin Dose 40 MG; Start 09/25/16 at 06:00 Israel King DO Sep 28, 2016 14:53
[2016-09-28 20:18] VITALS: BP 121/60; RESP 18
[2016-09-28] MEDS: ATORVASTATIN 40 MG TAB PO SCH (21:08)
[2016-09-28] MEDS: GABAPENTIN 100 MG CAP PO SCH (21:09)
[2016-09-28] MEDS: SENNA TAB PO SCH (21:09)
--- NOTE | 2016-09-29 11:27 | DS ---
DATE OF ADMISSION: 09/17/2016 DATE OF DISCHARGE: 09/28/2016 DISCHARGE DIAGNOSES: 1. Status post urinary tract infection. 2. Mildly elevated troponin, but preserved left ventricular function. 3. Hypertension. 4. Dyslipidemia. 5. Parkinsonism. 6. Anemia. 7. Cervical myelopathy status post surgery. REASON FOR ADMISSION: The patient is an 85-year-old female with history of C-spine stenosis who und erwent surgery at an outside hospital and was recuperating at [facility]. Ulysses serrato also has history of hypertension, parkinsonism, dyslipidemia and was brought into ER because of ur inary tract infection. The patient was treated with IV antibiotic. Urine culture revealed Klebsiel la, Morganella and was treated adequately with IV antibiotic. Post-treatment, urinary tract infect ion came back negative. The patient remained awake, alert, has weakness in all extremities. Ulysses serrato was seen by Dr. King from cardiac standpoint because of positive troponin. Echo revealed preser ruben LV function. The patient was treated medically and did not have any chest pain or shortness of breath. Patient remains on aspirin, beta tyler, aspirin and unfortunately patient's blood press ure was not high enough to use the beta tyler or MAURO inhibitor. The patient's blood pressure toda y is 101/47. Patient is afebrile. NECK: Supple, no JVD, no carotid bruit. CHEST: Fairly clear. CARDIOVASCULAR: S1, S2 normal. No murmur. ABDOMEN: Soft, nondistended, nontender. Bowel sounds present. EXTREMITIES: No leg edema. NEUROLOGIC: The patient is awake, alert, fairly oriented with weakness in all extremities. LABORATORY DATA: WBC 9.3, hemoglobin 10.5, platelets 236. Sodium 138, potassium 5.1, BUN 16, creat inine 0.6, glucose 79. The patient will be discharged to SNF in a stable condition. We will contin ue to follow her. The patient meanwhile was also seen by Dr. Hopson from hematology standpoint due to anemia and was diagnosed with anemia of chronic disease with mild iron deficiency anemia. The p atient received IV Ferrlecit for 3 days. Dictated By: SUJATHA GARCIA/JOSEPH Conf#: [id number] DID#: [id number]
== END 2016-09-28 21:43 | DRG 871 ==
LOC: E/R 17:36 → PP2 22:36
PROVIDERS: ADMIT Internal Medicine; ATTEND Internal Medicine
PROC: 0DB68ZX Excision of Stomach, Via Natural or Artificial Opening Endoscopic, Diagnostic (ICD-10-PCS; principal; 2016-09-19 12:00)
PROC: 0DBP8ZX Excision of Rectum, Via Natural or Artificial Opening Endoscopic, Diagnostic (ICD-10-PCS; 2016-09-20)
PROC: 0DBL8ZX Excision of Transverse Colon, Via Natural or Artificial Opening Endoscopic, Diagnostic (ICD-10-PCS; 2016-09-20)
DX: A41.9 Sepsis, unspecified organism (principal); G93.40 Encephalopathy, unspecified; G82.54 Quadriplegia, C5-C7 incomplete; N39.0 Urinary tract infection, site not specified; E87.1 Hypo-osmolality and hyponatremia; G95.9 Disease of spinal cord, unspecified; G20 Parkinson's disease; E86.0 Dehydration; E87.5 Hyperkalemia; I10 Essential (primary) hypertension; K29.70 Gastritis, unspecified, without bleeding; K57.30 Diverticulosis of large intestine without perforation or abscess without bleeding; E78.5 Hyperlipidemia, unspecified; K21.9 Gastro-esophageal reflux disease without esophagitis; K57.90 Diverticulosis of intestine, part unspecified, without perforation or abscess without bleeding; D50.9 Iron deficiency anemia, unspecified; B96.1 Klebsiella pneumoniae [K. pneumoniae] as the cause of diseases classified elsewhere; D12.3 Benign neoplasm of transverse colon; B96.89 Other specified bacterial agents as the cause of diseases classified elsewhere; K62.1 Rectal polyp; D63.8 Anemia in other chronic diseases classified elsewhere; R74.8 Abnormal levels of other serum enzymes; Z66 Do not resuscitate
CPT/HCPCS: 36415; 71010; 80048; 80053; 81001; 81003; 82270; 82550; 82553; 82607; 82668; 82728; 82746; 83010; 83540; 83605; 83615; 84155; 84165; 84484; 85025; 85045; 85610; 85730; 87040; 87081; 87086; 87400; 88305; 88312; 93005; 93306; 96374; 96375; C9113; J0692; J1650; J1956; J2250; J2370; J2916; J3010; J3370; J7030; J7070

== ENCOUNTER 2017-06-19 16:31 | Inpatient (IN) | payer MEDICARE, OTHER ==
[~2017-06-19] VITALS: Ht 154.9 cm; Wt 65.5 kg
[~2017-06-19 16:31] MED LIST: ACET-141 PO; ACET325T45 PO; ASPI81TA3 PO; ATOR40TA68 PO; BISA10SU75 PR; CHOL100062 PO; CRAN450C PO; DOCU-159 PO; ENOX40DI14 SC; FAMO20TA18 PO; GABA100C14 PO; HYDR-906 PO; LOSA50TA6 PO; MAG355OR14 PO; MEGE400O PO; MELA3TAB17 PO; METO-448 PO; POLY17PO6 PO; SENN-53 PO; SIN25100 PO; SODI1TAB2 PO
--- NOTE | 2017-06-19 17:21 | ERD ---
ER Documentation Chief Complaint Chief Complaint FROM SNF FOR EVAL OF AP. HPI The patient is a 86-year-old female, presenting to the ER because of diffuse abdominal pain for 2 days, the history is limited due to her condition. She denies fever, chest pain, dyspnea, vomiting, dysuria, diarrhea, constipation. She does not smoke nor drink Past medical history: Parkinson disease, hypertension, dyslipidemia, anemia, chronic lower extremity weakness. Past surgical history: Cervical fusion ROS All systems reviewed and are negative except as per history of present illness. Medications Home Meds Reported Medications Dextran 70/Hypromellose/Pf (ARTIFICIAL TEARS DROPS) 1 Each Droperette, 1 EACH OP BID 06/19/17 Pantoprazole* (Pantoprazole*) 40 Mg Tablet.dr, 40 MG PO AC BREAKFAST, TAB 06/19/17 Linaclotide (LINZESS) 145 Mcg Capsule, 145 MCG PO DAILY, #30 CAP 06/19/17 Atorvastatin Calcium* (Atorvastatin Calcium*) 20 Mg Tablet, 20 MG PO QHS, #30 TAB 06/19/17 Aspirin* (Aspirin* EC) 81 Mg Tablet.dr, 81 MG PO DAILY, TAB 06/19/17 Sodium Chloride* (Sodium Chloride*) 1 Gm Tablet, 1 GM PO BID, TAB 09/17/16 Carbidopa-Levodopa* (Sinemet*) 25-100 Mg Tab, 1 TAB PO BID, TAB 09/17/16 Metoprolol Tartrate* (Lopressor*) 25 Mg Tab, 12.5 MG PO BID, #60 TAB HOLD SBP LESS THAN 110 MMHG OR HR LESS THAN 60 BPM 09/17/16 Melatonin (Melatonin) 3 Mg Tablet.sa, 3 MG PO HS, TAB.SA 09/17/16 Mag Hydrox/Al Hydrox/Simeth (Maalox Advanced Suspension) 355 Ml Oral.susp, 30 ML PO Q4 09/17/16 Gabapentin* (Gabapentin*) 100 Mg Capsule, 100 MG PO QHS, #90 CAP 09/17/16 Bisacodyl* (Bisacodyl*) 10 Mg Supp, 10 MG [place] Q24H for CONSTIPATION, SUPP 09/17/16 Cholecalciferol* (Vitamin D3*) 1,000 Unit Tablet, 1000 UNIT PO DAILY, TAB 09/17/16 Acetaminophen* (Acetaminophen*) 500 MG Extra Strength Tablet, 1000 MG PO Q6H Y for PAIN LEVEL 4-6/10, TAB 1/30/17 Acetaminophen* (Acetaminophen*) 325 Mg Tablet, 650 MG PO Q4H Y for PAIN AND OR ELEVATED TEMP, #30 TAB if pain level 1-310 or temp greater than 101 deg. 09/17/16 Discontinued Reported Medications Cholecalciferol* (Vitamin D3*) 1,000 Unit Tablet, 1000 UNIT PO DAILY, TAB 09/17/16 Sennosides* (Senna Lax*) 8.6 Mg Tablet, 1 TAB PO QHS, TAB 09/17/16 Hydrocodone/Acetaminophen (Union 5-325 Tablet) 1 Each Tablet, 1 EACH PO Q6 Y for PAIN 7-05/28, TAB 09/17/16 Polyethylene Glycol* (Miralax*) 17 Gm Powd.pack, 17 GM PO DAILY, #30 PACKET 09/17/16 Megestrol Acetate* (Megace*) 400 Mg/10 Ml Oral.susp, 400 MG PO DAILY, ML 09/17/16 Enoxaparin Sodium* (Lovenox*) 40 Mg/0.4 Ml Syringe, 40 MG SC DAILY, SYR 09/17/16 Losartan Potassium* (Losartan Potassium*) 50 Mg Tablet, 50 MG PO DAILY, TAB HOLD SBP LESS THAN 110 MMHG OR HR LESS THAN 60 BPM 09/17/16 Famotidine* (Famotidine*) 20 Mg Tablet, 20 MG PO QAM, #30 TAB 09/17/16 Docusate Sodium* (Docusate Sodium*) 100 Mg Capsule, 100 MG PO BID, #60 CAP 09/17/16 Cranberry Fruit Concentrate (CRANBERRY) 450 Mg Capsule, 450 MG PO DAILY, CAP 09/17/16 Atorvastatin* (Atorvastatin*) 40 Mg Tablet, 40 MG PO QHS, #30 TAB 09/17/16 Aspirin* (Aspirin* Chew) 81 Mg Tab.chew, 81 MG PO DAILY, TAB.CHEW 09/17/16 Allergies Allergies: Coded Allergies: No Known Allergy (Unverified , 06/19/17) PMhx/Soc History of Surgery: Yes (cervical disc, spinalfusion C5-6 02/2016) Anesthesia Reaction: No Hx Neurological Disorder: Yes (Myelopathy, Parkinsons) Hx Respiratory Disorders: No Hx Cardiac Disorders: Yes (Hypertension) Hx Psychiatric Problems: No Hx Miscellaneous Medical Probl: No Hx Alcohol Use: No Hx Substance Use: No Hx Tobacco Use: No Physical Exam Vitals Vital Signs Date Time Temp Pulse Resp B/P Pulse Ox O2 Delivery O2 Flow Rate FiO2 06/19/17 17:47 98.2 86 20 130/60 100 Room Air 06/19/17 17:17 98.2 68 19 131/64 99 Physical Exam Const: No acute distress. Head: Atraumatic. Eyes: Normal Conjunctiva. ENT: Normal External Ears, Nose and Mouth. Neck: Full range of motion. No meningismus. Resp: Clear to auscultation bilaterally. Cardio: Regular rate and rhythm. Abd: Soft, non distended, normal bowel sounds, Diffuse mild abdominal tenderness, no rigidity, rebound, CVA tenderness Skin: No petechiae or rashes. Back: No midline or flank tenderness. Ext: No cyanosis, or edema. Neur: Awake. Bilateral lower extremity weakness Psych: Unable to perform due to her condition Result Diagram: 06/19/17 1730 06/19/17 173 Results 24 hrs Laboratory Tests Test 06/19/17 17:30 06/19/17 18:25 White Blood Count 8.610^3/ul Red Blood Count 3.6710^6/ul Hemoglobin 12.1g/dl Hematocrit 35.5% Mean Corpuscular Volume 96.7fl Mean Corpuscular Hemoglobin 33.0pg Mean Corpuscular Hemoglobin Concent 34.1g/dl Red Cell Distribution Width 11.5% Platelet Count 36723^3/UL Mean Platelet Volume 9.1fl Neutrophils % 52.4% Lymphocytes % 29.8% Monocytes % 8.6% Eosinophils % 8.9% Basophils % 0.1% Nucleated Red Blood Cells % 0.0/100WBC Neutrophils # 4.510^3/ul Lymphocytes # 2.610^3/ul Monocytes # 0.710^3/ul Eosinophils # 0.810^3/ul Basophils # 0.010^3/ul Nucleated Red Blood Cells # 0.010^3/ul Prothrombin Time 12.5Sec Prothrombin Time Ratio 1.0 INR International Normalized Ratio 0.93 Activated Partial Thromboplast Time 32.6Sec Sodium Level 131mmol/L Potassium Level 4.9mmol/L Chloride Level 92mmol/L Carbon Dioxide Level 26mmol/L Anion Gap 18 Blood Urea Nitrogen 16mg/dl Creatinine 0.68mg/dl Glucose Level 109mg/dl Calcium Level 8.7mg/dl Total Bilirubin 0.2mg/dl Direct Bilirubin 0.00mg/dl Indirect Bilirubin 0.2mg/dl Aspartate Amino Transf (AST/SGOT) 27IU/L Alanine Aminotransferase (ALT/SGPT) 32IU/L Alkaline Phosphatase 42IU/L Troponin I < 0.012ng/ml Total Protein 7.5g/dl Albumin 4.0g/dl Globulin 3.50g/dl Albumin/Globulin Ratio 1.14 Lipase 169U/L Urine Color YELLOW Urine Clarity TURBID Urine pH 7.0 Urine Specific [place] 1.010 Urine Ketones NEGATIVEmg/dL Urine Nitrite NEGATIVEmg/dL Urine Bilirubin NEGATIVEmg/dL Urine Urobilinogen NEGATIVEmg/dL Urine Leukocyte Esterase 3+Roberto Carlos/ul Urine Microscopic RBC 11/HPF Urine Microscopic WBC > 182/HPF Urine Squamous Epithelial Cells FEW/HPF Urine Mucus FEW/HPF Urine Hemoglobin 1+mg/dL Urine Glucose NEGATIVEmg/dL Urine Total Protein 2+mg/dl Current Medications Medications (Trade) Dose Ordered Sig/Leyda Route PRN Reason Start Time Stop Time Status Last Admin Dose Admin Piperacillin Sod/ Tazobactam Sod (Zosyn 3.375gm/ 100 ml (Pmx)) 100 ml @ 200 mls/hr ONCE ONCE IVPB 06/19/17 19:30 06/19/17 19:59 DC 06/19/17 19:25 Procedures/[place] [id number] Radiology Main Line: [phone] DIAGNOSTIC IMAGING REPORT Patient: CHASE REGAN : 1930 Age: 86 Sex: F [id number] [id number] DOS: 06/19/17 1714 Ordering MD: RENAN TORRES MD Location: E/R Room/Bed: PROCEDURE: XR Chest. CLINICAL INDICATION: Chest pain TECHNIQUE: A single portable view of the chest was obtained. COMPARISON: 09/19/2016 FINDINGS: The patient is rotated. The aorta is tortuous and atherosclerotic. The cardiomediastinal silhouette is otherwise stable. The lung volumes are low with bibasilar compressive atelectasis. The remaining lungs and pleural spaces are clear. The soft tissues and osseous structures demonstrate benign age related senescent changes. Anterior fusion lower cervical spine is once again seen and incompletely evaluated. IMPRESSION: No acute cardiopulmonary disease. Low lung volumes with bibasilar compressive atelectasis. RPTAT: HPNM Physician Osiel Date Time Electronically viewed and signed by Mark Elias Physician on 06/19/2017 18 :41 / CC: RENAN TORRES MD EKG: Read by emergency physician Rate/Rhythm: Normal Sinus Rhythm 67 beats/min QRS, ST, T-waves: No ST elevation, no T inversion, PVC Impression: Abnormal EKG MEDICAL MAKING DECISION: MEDICAL MAKING DECISION: The patient is an 86-year-old female, presenting to the ER because of acute cystitis. She was treated with Zosyn IV for acute cystitis. The differential diagnoses considered include but are not limited to cholelithiasis, cholecystitis, cystitis, pancreatitis, hepatitis, gastritis, peptic ulcer disease, gastric ulcer, appendicitis, diverticulitis, cholangitis, choledocholithiasis, partial small bowel obstruction. Departure Diagnosis: Primary Impression: UTI (urinary tract infection) Condition: Stable Comments I discussed the findings with the patient. I discussed the patient with her physician Dr. Camryn Knapp who was made aware of the lab, the treatment, the patient condition. The patient is admitted to [facility] Disclaimer: Inadvertent spelling and grammatical errors are likely due to EHR/ dictation software use and do not reflect on the overall quality of patient care. Also, please note that the electronic time recorded on this note does not necessarily reflect the actual time of the patient encounter. RENAN TORRES MD Jun 19, 2017 17:21
[2017-06-19 17:40] LABS: BASOPHILS % 0.1 % (0.0-2.0); EOSINOPHILS # 0.8 10^3/ul (0.0-0.5); EOSINOPHILS % 8.9 % (0.0-7.0); HEMATOCRIT 35.5 % (37.0-47.0); HEMOGLOBIN 12.1 g/dl (12.0-16.0); LYMPHOCYTES # 2.6 10^3/ul (0.8-2.9); LYMPHOCYTES % 29.8 % (15.0-51.0); MEAN CORPUSCULAR HGB CONC 34.1 g/dl (32.0-37.0); MEAN CORPUSCULAR VOLUME 96.7 fl (82.0-101.0); MEAN PLATELET VOLUME 9.1 fl (7.4-10.4); MONOCYTE # 0.7 10^3/ul (0.3-0.9); MONOCYTES % 8.6 % (0.0-11.0); NEUTROPHIL # 4.5 10^3/ul (1.6-7.5); NEUTROPHILS % 52.4 % (39.0-77.0); PLATELET COUNT 234 10^3/UL (140-415); RED BLOOD COUNT 3.67 10^6/ul (4.20-5.40); RED CELL DISTRIBUTION WIDTH 11.5 % (11.5-14.5); WHITE BLOOD COUNT 8.6 10^3/ul (4.8-10.8)
[2017-06-19 17:47] VITALS: TEMP 98.2
[2017-06-19 17:57] LABS: INR 0.93; PROTIME 12.5 Sec (12.2-14.2)
[2017-06-19 17:58] LABS: PARTIAL THROMBOPLASTIN TIME 32.6 Sec (25.0-35.0)
[2017-06-19 18:00] LABS: ALANINE AMINOTRANSFERASE 32 IU/L (13-69); ALBUMIN/GLOBULIN RATIO 1.14; ALKALINE PHOSPHATASE 42 IU/L (42-121); ANION GAP 18 (8-16); ASPARTATE AMINO TRANSFERASE 27 IU/L (15-46); BILIRUBIN,INDIRECT 0.2 mg/dl (0-1.1); BILIRUBIN,TOTAL 0.2 mg/dl (0.2-1.3); BLOOD UREA NITROGEN 16 mg/dl (7-20); CALCIUM 8.7 mg/dl (8.4-10.2); CARBON DIOXIDE 26 mmol/L (21-31); CHLORIDE 92 mmol/L (97-110); CREATININE 0.68 mg/dl (0.44-1.00); GLUCOSE 109 mg/dl (70-220); POTASSIUM 4.9 mmol/L (3.5-5.1); SODIUM 131 mmol/L (135-144); TOTAL PROTEIN 7.5 g/dl (6.1-8.1)
[2017-06-19 18:11] LABS: TROPONIN-I < 0.012 ng/ml (0.00-0.12)
[2017-06-19] MEDS ORDERED: ASPI-664 PO (18:24)
[2017-06-19] MEDS ORDERED: ATOR20TA38 PO (18:24)
[2017-06-19] MEDS ORDERED: LINA145C PO (18:25)
[2017-06-19] MEDS ORDERED: PANT40TA4 PO (18:25)
[2017-06-19] MEDS ORDERED: DEXT1DRO7 OP (18:26)
--- NOTE | 2017-06-19 18:41 | RADRPT ---
PROCEDURE: XR Chest. CLINICAL INDICATION: Chest pain TECHNIQUE: A single portable view of the chest was obtained. COMPARISON: 09/19/2016 FINDINGS: The patient is rotated. The aorta is tortuous and atherosclerotic. The cardiomediastinal silhouette is otherwise stable. The lung volumes are low with bibasilar compressive atelectasis. The remaining lungs and pleural spaces are clear. The soft tissues and osseous structures demonstrate benign age related senescent changes. Anterior fusion lower cervical spine is once again seen and incompletely evaluated. IMPRESSION: No acute cardiopulmonary disease. Low lung volumes with bibasilar compressive atelectasis. RPTAT: HPNM Physician Osiel Date Time Electronically viewed and signed by Physician Osiel on 06/19/2017 18:41 /
[2017-06-19 18:48] LABS: ADD UMIC YES; UR ASCORBIC ACID 20 mg/dL (NEGATIVE); UR BILIRUBIN (Dip) NEGATIVE (NEGATIVE); UR BLOOD (Dip) 1+ mg/dL (NEGATIVE); UR CLARITY TURBID (CLEAR); UR COLOR YELLOW (YELLOW); UR GLUCOSE (Dip) NEGATIVE (NEGATIVE); UR KETONES (Dip) NEGATIVE (NEGATIVE); UR LEUKOCYTE ESTERASE (Dip) 3+ Leu/ul (NEGATIVE); UR MUCUS FEW /HPF (NONE SEEN); UR NITRITE (Dip) NEGATIVE (NEGATIVE); UR RBC 11 /HPF (0-5); UR SQUAMOUS EPITHELIAL CELL FEW /HPF (FEW); UR TOTAL PROTEIN (Dip) 2+ mg/dl (NEGATIVE); UR UROBILINOGEN (Dip) NEGATIVE (NEGATIVE)
[2017-06-19] MEDS ORDERED: PIPER-TAZO 3.375 GM IV (PMX) 100 ML IVPB ONE (19:30)
[2017-06-19 21:00] VITALS: BP 140/65; PULSE 66; RESP 18
[2017-06-19 22:41] VITALS: Ht 154.9 cm; Wt 65.5 kg
[2017-06-19] MEDS: BISACODYL 10 MG SUPP PR SCH (23:00)
[2017-06-19] MEDS ORDERED: ONDANSETRON 4 MG INJ IV PRN (23:00)
[2017-06-19] MEDS: SODIUM CHLORIDE 1 GM TAB PO SCH (23:30)
[2017-06-20] MEDS: AL HYDROX/MG HYDROX/SIMETH 30 ML CUP PO SCH ×6 (01:40→20:46)
[2017-06-20 02:16] VITALS: BP 121/58; RESP 18
[2017-06-20] MEDS: PIPER-TAZO 3.375 GM IV (PMX) 100 ML IVPB SCH ×2 (05:40→13:10)
[2017-06-20 06:27] LABS: BASOPHILS % 0.1 % (0.0-2.0); EOSINOPHILS # 0.9 10^3/ul (0.0-0.5); EOSINOPHILS % 10.5 % (0.0-7.0); HEMATOCRIT 35.7 % (37.0-47.0); HEMOGLOBIN 12.3 g/dl (12.0-16.0); LYMPHOCYTES # 2.2 10^3/ul (0.8-2.9); LYMPHOCYTES % 26.6 % (15.0-51.0); MEAN CORPUSCULAR HEMOGLOBIN 33.5 pg (29.0-33.0); MEAN CORPUSCULAR HGB CONC 34.5 g/dl (32.0-37.0); MEAN CORPUSCULAR VOLUME 97.3 fl (82.0-101.0); MEAN PLATELET VOLUME 9.7 fl (7.4-10.4); MONOCYTE # 0.7 10^3/ul (0.3-0.9); MONOCYTES % 8.5 % (0.0-11.0); NEUTROPHIL # 4.4 10^3/ul (1.6-7.5); NEUTROPHILS % 53.9 % (39.0-77.0); PLATELET COUNT 237 10^3/UL (140-415); RED BLOOD COUNT 3.67 10^6/ul (4.20-5.40); RED CELL DISTRIBUTION WIDTH 11.6 % (11.5-14.5); WHITE BLOOD COUNT 8.2 10^3/ul (4.8-10.8)
[2017-06-20 06:38] LABS: POSITIVE DIFF @See below
[2017-06-20 06:59] LABS: CREATININE 0.65 mg/dl (0.44-1.00); POTASSIUM 5.2 mmol/L (3.5-5.1)
[2017-06-20 07:40] VITALS: BP 128/63; PULSE 75; RESP 20
[2017-06-20] MEDS ORDERED: NON-FORMULARY/PATIENT OWN MED (Linaclotide (Linzess) 145 MCG) PO SCH (09:00)
[2017-06-20] MEDS: PANTOPRAZOLE (EC) 40 MG TAB PO SCH (09:08)
[2017-06-20] MEDS: ASPIRIN (EC) 81 MG TAB PO SCH (09:09)
[2017-06-20] MEDS: ACETAMINOPHEN 325 MG TAB PO PRN (09:10)
[2017-06-20] MEDS: CHOLECALCIFEROL 1,000 UNIT TAB PO SCH (09:10)
[2017-06-20] MEDS: SODIUM CHLORIDE 1 GM TAB PO SCH ×2 (09:10→20:47)
[2017-06-20] MEDS: SOD CHLORIDE 0.9% 1,000 ML IV SCH (14:18)
--- NOTE | 2017-06-20 14:31 | HP ---
DATE OF ADMISSION: 06/19/2017 CHIEF COMPLAINT: Abdominal pain. HISTORY OF PRESENT ILLNESS: The patient is an 86-year-old [place]ian female with history of hypertension, dyslipidemia, parkinsonism cervical myelopathy status post surgery. The patient also has history of anemia of chronic disease and mild iron deficiency anemia. The patient does also have history of positive troponin; however, the patient's echo earlier this year revealed a preserved LV function. The patient is being treated medically for that. Patient, was noted to have abdominal pain that started yesterday at [facility]. No associated vomiting, no reported fever or chills, no reported tachycardia, no reported rectal bleed, no reported chest pain. The patient was sent to the ER. The patient in the ER was noted to have a low grade temperature, 99.2; however , white count was normal with no left shift. UA was positive for UTI. Chemistry revealed sodium 131, potassium of 4.9. Renal functions were normal. LFTs are normal. Chest x-ray was negative; however, no radiological studies were done for abdominal pain. Patient is still complaining of abdominal pain and therefore, a CT of the abdomen will be obtained. The patient denies any chest pain. No reported wheezing, no reported cough. The patient has generalized weakness and spends most of her time in the bed and is wheelchair bound. No acute skin rash or any acute joint swelling. REVIEW OF SYSTEMS: Rest of review of systems was unremarkable. PAST MEDICAL HISTORY: As stated above. FAMILY HISTORY: Noncontributory. SOCIAL HISTORY: No smoking, no alcohol. PAST SURGICAL HISTORY: The patient is status post cervical laminectomy. PHYSICAL EXAMINATION: GENERAL: The patient to be conscious, awake, alert, follows simple commands, oriented x2. VITAL SIGNS: T-max of 99.2, current temperature 98.7, pulse 75, respirations 20 , blood pressure 128/63, O2 97% on room air. HEENT: Atraumatic, normocephalic head. Conjunctivae and lids normal. Oropharynx clear. NECK: No mass, no JVD, no carotid bruit. CHEST: Fairly clear. No use of accessory muscles. CARDIOVASCULAR: S1, S2 normal. No murmur, gallop, or rub. ABDOMEN: Soft, not distended. Poorly localizing tenderness present. No guarding or rigidity. Bowel sounds present. EXTREMITIES: No leg edema. Pedal pulses palpable. SKIN: Without rash. NEUROLOGIC: The patient is awake, alert, follows simple commands, has generalized weakness in all extremities due to cervical myelopathy. LABORATORY DATA: Labs upon admission: Sodium 131, potassium 4.9, BUN 16, creatinine 0.6, glucose 109, calcium 8.7, AST 27, ALT 32, alkaline phosphatase 42, albumin 4. WBC 8.2, hemoglobin 12.3, platelets 237. IMPRESSION: 1. Abdominal pain. Poorly localized without signs of acute abdomen We will obtain CT of the abdomen for further evaluation. 2. Urinary tract infection. Continue IV Zosyn. Urine is growing gnr 3. Possible dysphagia, will obtain ST eval and put her on pureed diet. We will also give IV fluids. 4. Hyponatremia. We will start normal saline. The patient has a low salt intake. 5. Hypertension. Continue metoprolol. 6. Parkinsonism, stable. Continue Sinemet. 7. Dyslipidemia. Continue Lipitor. LFT s normal 8. History of positive troponin with preserved LV function. Continue aspirin Will add lovenox for dvt prophylaxis & PPI for gi prophylaxis. Goals Of Care : I spoke with the patient's family regarding goals of care. Code status, comfort care and G-tube issues were discussed & explained in detail. Patient's family is requesting to make her DNR and also do not want feeding tube in case she fails swallow evaluation. Approx 30 mins were spent in discussing goals of care with the family. Dictated By: SUJATHA GARCIA/JOSEPH Conf#: [id number] DID#: [id number]
[2017-06-20] MEDS: ENOXAPARIN 30 MG/0.3 ML SYG SC SCH (14:32)
[2017-06-20 16:39] VITALS: BP 111/53; RESP 16
[2017-06-20 20:33] VITALS: BP 104/55; RESP 20
[2017-06-20] MEDS: ARTIFICIAL TEARS 15 ML OPH BOTH EYES SCH (20:47)
[2017-06-20] MEDS: GABAPENTIN 100 MG CAP PO SCH (20:47)
[2017-06-20] MEDS: ATORVASTATIN 20 MG TAB PO SCH (20:47)
[2017-06-20] MEDS: CARBIDOPA/LEVODOPA (25/100) TAB PO SCH (20:47)
[2017-06-20] MEDS: METOPROLOL 25 MG TAB PO SCH (20:53)
[2017-06-20] MEDS ORDERED: NON-FORMULARY/PATIENT OWN MED (Melatonin 3 MG) PO SCH (21:00)
[2017-06-20] MEDS: BISACODYL 10 MG SUPP PR SCH (23:00)
[2017-06-20] MEDS: PIPER-TAZO 3.375 GM IV (PMX) 50 ML IVPB SCH (23:35)
[2017-06-21] VITALS (7 sets, daily range): BP systolic 86–138; BP diastolic 49–61; PULSE 58–65; RESP 16–20
[2017-06-21] MEDS: AL HYDROX/MG HYDROX/SIMETH 30 ML CUP PO SCH ×6 (01:50→20:10)
[2017-06-21] MEDS: PIPER-TAZO 3.375 GM IV (PMX) 50 ML IVPB SCH ×2 (05:34→15:00)
[2017-06-21] MEDS: ENOXAPARIN 30 MG/0.3 ML SYG SC SCH (08:32)
[2017-06-21] MEDS: CHOLECALCIFEROL 1,000 UNIT TAB PO SCH (08:35)
[2017-06-21] MEDS: CARBIDOPA/LEVODOPA (25/100) TAB PO SCH ×2 (08:36→20:09)
[2017-06-21] MEDS: SODIUM CHLORIDE 1 GM TAB PO SCH ×2 (08:36→20:10)
[2017-06-21] MEDS: PANTOPRAZOLE (EC) 40 MG TAB PO SCH (08:36)
[2017-06-21] MEDS: ASPIRIN (EC) 81 MG TAB PO SCH (08:37)
[2017-06-21] MEDS: METOPROLOL 25 MG TAB PO SCH ×2 (08:39→20:10)
[2017-06-21] MEDS: ARTIFICIAL TEARS 15 ML OPH BOTH EYES SCH ×2 (09:00→20:10)
[2017-06-21] MEDS: SOD CHLORIDE 0.9% 1,000 ML IV SCH ×2 (10:00→12:04)
[2017-06-21] MEDS: ACETAMINOPHEN 325 MG TAB PO PRN ×2 (10:16→11:04)
--- NOTE | 2017-06-21 15:56 | PN ---
Date/Time of Note Date/Time of Note DATE: 06/21/17 TIME: 15:48 Assessment/Plan VTE Prophylaxis VTE Prophylaxis Intervention: LMWH, SCD's Lines/Catheters IV Catheter Type (from Nrsg): Peripheral IV Assessment/Plan Chief Complaint/Hosp Course Complains of abdominal pain, awake alert, able to void. Problems: Assessment/Plan - Abdominal pain. Pending CT of the abdomen for further evaluation. - MDR Proteus mirabilis urinary tract infection, will change Zosyn to amikacin. Monitor postvoid residual. Dr. Zaldivar is asked to see patient in infection disease consultation. - Possible dysphagia, patient able to tolerate pured diet, plan for reevaluation by speech therapy tomorrow - Hypertension. Continue metoprolol. - Parkinsonism, stable. Continue Sinemet. - Dyslipidemia. Continue Lipitor. - Hyponatremia continue IV fluids - Hyperkalemia will give Kayexalate monitor electrolytes Further recommendations based on clinical course. Plan of care discussed with Dr. King Exam/Review of Systems Vital Signs Vitals Vital Signs Date Time Temp Pulse Resp B/P Pulse Ox O2 Delivery O2 Flow Rate FiO2 06/21/17 14:42 97.4 58 18 105/52 96 Room Air Intake and Output 06/20/17 06/20/17 06/21/17 15:00 23:00 07:00 Intake Total 100 ml 680 ml 700 ml Balance 100 ml 680 ml 700 ml Exam Constitutional: alert, oriented Head: normocephalic Neck: supple Respiratory: normal air movement Cardiovascular: nl pulses Gastrointestinal: soft, tender Extremities: normal pulses Results Result Diagram: 06/20/1752006/20/17520 Medications Medications Current Medications Ondansetron HCl (Zofran Inj) 4 mg Q6H PRN IV NAUSEA AND/OR VOMITING; Start 06/19/17 at 23:00 Aspirin (Halfprin) 81 mg DAILY PO Last administered on 06/21/17 08:37; Admin Dose 81 MG; Start 06/20/17 at 09:00 Atorvastatin Calcium (Lipitor) 20 mg QHS PO Last administered on 06/20/17 20: 47; Admin Dose 20 MG; Start 06/20/17 at 21:00 Bisacodyl (Dulcolax Supp) 10 mg Q24H MA ; Start 06/19/17 at 23:00 Carbidopa/Levodopa (Sinemet (25/ 100)) 1 tab BID PO Last administered on 08:36; Admin Dose 1 TAB; Start 06/20/17 at 21:00 Cholecalciferol (Vitamin D) 1,000 unit DAILY PO Last administered on 06/21/17 08:35; Admin Dose 1,000 UNIT; Start 06/20/17 at 09:00 Gabapentin (Neurontin) 100 mg QHS PO Last administered on 06/20/17 20:47; Admin Dose 100 MG; Start 06/20/17 at 21:00 Al Hydrox/Mg Hydrox/Simethicone (Mag-Al Plus) 30 ml Q4 PO Last administered on 06/21/17 12:04; Admin Dose 30 ML; Start 06/20/17 at 01:00 Metoprolol Tartrate (Lopressor) 12.5 mg BID PO Last administered on 06/21/17 08:39; Admin Dose 12.5 MG; Start 06/20/17 at 21:00 Sodium Chloride (Nacl) 1 gm BID PO Last administered on 06/21/17 08:36; Admin Dose 1 GM; Start 06/19/17 at 23:30 Eye Lubricant (Artificial Tears Oph) 1 drop BID BOTH EYES Last administered on 06/21/17 09:00; Admin Dose 1 DROP; Start 06/20/17 at 21:00 Acetaminophen 650 mg 650 mg Q6H PRN PO PAIN AND OR ELEVATED TEMP Last administered on 06/21/17 11:04; Admin Dose 650 MG; Start 06/19/17 at 23:00 Sodium Chloride (NS) 1,000 ml @ 50 mls/hr Q20H IV Last administered on 12:04; Admin Dose 50 MLS/HR; Start 06/20/17 at 14:00 Enoxaparin Sodium 30 mg 30 mg DAILY SC Last administered on 06/21/17 08:32; Admin Dose 30 MG; Start 06/20/17 at 15:00 Piperacillin Sod/ Tazobactam Sod (Zosyn 3.375gm/ 50 ml (Pmx)) 50 ml @ 100 mls/ hr Q8 IVPB Last administered on 06/21/17 15:00; Admin Dose 100 MLS/HR; Start 06/20/17 at 22:00 ERMIAS TOBAR Jun 21, 2017 15:56
[2017-06-21] MEDS ORDERED: NA POLYST SULFON 15 GM/60 ML BTL PO ONE (16:00)
[2017-06-21] MEDS ORDERED: AMIKACIN IV PER PHARMACY XX SCH (16:00)
[2017-06-21] MEDS ORDERED: LEVALBUTEROL (NEB) 0.63 MG/3 ML AMP HHN PRN (16:30)
[2017-06-21] MEDS: HYDROCODONE/APAP (5/325) TAB PO PRN ×2 (16:44→21:12)
[2017-06-21] MEDS: AMIKACIN 250 MG in SOD CHLORIDE 0.9% 100 ML IVPB SCH (18:58)
[2017-06-21] MEDS: LEVALBUTEROL (NEB) 0.63 MG/3 ML AMP HHN SCH (19:27)
[2017-06-21] MEDS: ATORVASTATIN 20 MG TAB PO SCH (20:09)
[2017-06-21] MEDS: GABAPENTIN 100 MG CAP PO SCH (20:10)
[2017-06-21] MEDS: BISACODYL 10 MG SUPP PR SCH (22:05)
[2017-06-22] MEDS: ZOLPIDEM 5 MG TAB PO PRN ×2 (00:43→21:31)
[2017-06-22] MEDS: AL HYDROX/MG HYDROX/SIMETH 30 ML CUP PO SCH ×4 (00:43→21:26)
[2017-06-22] MEDS: LEVALBUTEROL (NEB) 0.63 MG/3 ML AMP HHN SCH ×4 (00:50→20:58)
[2017-06-22 02:00] VITALS: BP 126/60; RESP 20
--- NOTE | 2017-06-22 03:00 | CONS ---
DATE OF ADMISSION: 06/19/2017 DATE OF CONSULTATION: 06/21/2017 TYPE OF CONSULTATION: Infectious Disease. REASON FOR CONSULTATION: Antibiotic management. HISTORY OF PRESENT ILLNESS: Sinai Streeter is an 86-year-old Filipina female with numerous problems who comes in with abdominal pain. Past problems include: 1. Hypertension. 2. Dyslipidemia. 3. Parkinson's disease. 4. Cervical myelopathy status post surgery. 5. Anemia of chronic disease and moderate iron deficiency anemia. The patient has good left ventricular function. She was noted to have abdominal pain that started 1 day prior to admission without fever or chills. She was sent to the emergency room, found to have a low-grade temperature; however, her white count was normal with no left shift. Urinalysis was pos itive for a UTI. Renal functions were normal. Chest x-ray was negative. ____ studies were done initially for abdominal pain. She is not complaining of abdominal pain. On admission, her white count was 8.2, hemoglobin 12.3, platelets 237. BUN and creatinine 16/0.6. HOSPITAL COURSE: Chest x-ray showed no acute cardiopulmonary disease and bibasilar compressive atel ectasis. Her urine is growing Proteus mirabilis. Her urinalysis shows 3+ leukocyte esterase, great er than 182 white cells per high powered field, and the patient was started on amikacin. PAST SURGICAL HISTORY: Status post cervical laminectomy. History is otherwise outlined. SOCIAL HISTORY: She does not smoke, drink or abuse drugs. ALLERGIES: NONE TO PENICILLIN, SULFA OR FOODS. MEDICATIONS: Per chart. REVIEW OF SYSTEMS: As per HPI. PHYSICAL EXAMINATION: GENERAL: The patient is an elderly 86-year-old Filipina who is awake, responsive, in no acute distr ess. VITAL SIGNS: Stable. She is afebrile. SKIN: Without generalized rash. HEENT: Within normal limits. NECK: Supple. LYMPH NODES: None palpable. CHEST: Decreased breath sounds at the bases. HEART: Without murmur or gallop. ABDOMEN: Soft, nontender, without organosplenomegaly or masses. EXTREMITIES: Without cyanosis, clubbing, or edema. RECTAL AND GENITAL: Deferred. NEUROLOGIC: Has generalized weakness with cervical myelopathy. IMPRESSION AND PLAN: The patient presents now with a urinary tract infection, probably referred merry n to the abdomen. A CT scan of the abdomen is pending. She had been on Zosyn. She is now on amika beth. She has multidrug-resistant Proteus mirabilis, possible dysphagia. We will continue her on th is current regimen. I concur with current therapy. I will dictate my findings to Dr. King and nurse practitioner, Jacinto. Dictated By: GABBIE CARMONA MD, JD/JOSEPH Conf#: [id number] DID#: [id number]
--- NOTE | 2017-06-22 04:10 | RADRPT ---
PROCEDURE: CT Abdomen and Pelvis without contrast. CLINICAL INDICATION: Abdominal pain. TECHNIQUE: CT scan of the abdomen and pelvis without contrast was performed on a multidetector hig h-resolution CT scanner. The patient was scanned without intravenous contrast. Coronal and sagittal reformatted images were obtained from the axial source images. Images were reviewed on a high-resol [employer] PACS workstation. The total exam CTDI equals 7.33 mGy and the total exam DLP equals 427.64 mGy -cm. One or more of the following dose reduction techniques were used: - Automated exposure control. - Adjustment of the mA and/or kV according to patient size. - Use of iterative reconstruction technique. COMPARISON: None. FINDINGS: CT Abdomen and Pelvis: Lung bases: The heart is mildly enlarged without evidence of a pericardial effusion. Dense coronary artery calcification is present. Coarse parenchymal opacities within the lingula bilateral lower lo bes representing either interstitial pulmonary fibrosis or chronic infiltrates( less favored). Solid organs: The liver, spleen, pancreas, and adrenal glands are unremarkable. Biliary: There is cholelithiasis without evidence of gallbladder distension or adjacent mesenteric inflammatory changes. These findings are demonstrated on axial image 61 of series 3. GI: Oral contrast is present within the stomach. The small bowel is non distended. Residual barium o r appendicoliths are seen on axial image 100. There is no evidence of appendicitis. Diverticula are present throughout the descending and sigmoid colon without evidence of diverticulitis. The rectum i s distended measuring 6.7 cm x 7.2 cm in AP and transverse dimensions respectively containing large amounts of stool. Correlate for fecal impaction. : There is no evidence of hydronephrosis. An 11 mm right upper pole renal cyst is present on buddy nal image 47. 7 mm inferior left renal pole cyst is demonstrated. The urinary bladder wall is slight ly thickened without evidence of a discrete soft tissue mass. Peritoneum: No evidence of ascites or pneumoperitoneum. Lymph nodes: No pathologically enlarged lymphadenopathy. Vascular: No evidence of abdominal aortic aneurysm. Scattered calcified atherosclerotic plaque pres ent throughout the aorta and bilateral common iliac arteries. Osseous structures: No aggressive appearing osteolytic or osteoblastic lesions. Degenerative grade 1 spondylolisthesis of L4 rest L5. Calcified intervertebral discs T7-T8 through T9-T10. IMPRESSION: 1. Diverticulosis without diverticulitis. 2. Cholelithiasis without gallbladder distension or adjacent mesenteric inflammatory changes. 3. Distended rectum contained large amounts of retained fecal matter. Correlate for fecal impaction . 4. Lingular and bilateral lower lobe interstitial pulmonary fibrosis and less likely chronic infilt rates. 5. Bilateral renal cysts. RPTAT: HRSR RPTAT: HRSR Physician Tom Date Time Electronically viewed and signed by Shun Mclaughlin Physician on 06/22/2017 04:10 RR/
[2017-06-22 06:25] LABS: BASOPHILS % 0.3 % (0.0-2.0); EOSINOPHILS # 0.6 10^3/ul (0.0-0.5); EOSINOPHILS % 9.2 % (0.0-7.0); HEMATOCRIT 36.8 % (37.0-47.0); LYMPHOCYTES # 1.9 10^3/ul (0.8-2.9); LYMPHOCYTES % 26.9 % (15.0-51.0); MEAN CORPUSCULAR HEMOGLOBIN 32.1 pg (29.0-33.0); MEAN CORPUSCULAR HGB CONC 32.6 g/dl (32.0-37.0); MEAN CORPUSCULAR VOLUME 98.4 fl (82.0-101.0); MEAN PLATELET VOLUME 9.3 fl (7.4-10.4); MONOCYTE # 0.6 10^3/ul (0.3-0.9); MONOCYTES % 8.1 % (0.0-11.0); NEUTROPHIL # 3.8 10^3/ul (1.6-7.5); NEUTROPHILS % 55.1 % (39.0-77.0); PLATELET COUNT 228 10^3/UL (140-415); RED BLOOD COUNT 3.74 10^6/ul (4.20-5.40); RED CELL DISTRIBUTION WIDTH 11.9 % (11.5-14.5); WHITE BLOOD COUNT 6.9 10^3/ul (4.8-10.8)
[2017-06-22 06:56] LABS: ALBUMIN/GLOBULIN RATIO 1.17; BILIRUBIN,INDIRECT 0.3 mg/dl (0-1.1); BILIRUBIN,TOTAL 0.3 mg/dl (0.2-1.3); CALCIUM 8.5 mg/dl (8.4-10.2); CREATININE 0.6 mg/dl (0.44-1.00); POTASSIUM 3.7 mmol/L (3.5-5.1); TOTAL PROTEIN 7.4 g/dl (6.1-8.1)
[2017-06-22 08:00] VITALS: BP 134/64; PULSE 63; RESP 20
[2017-06-22] MEDS: CHOLECALCIFEROL 1,000 UNIT TAB PO SCH (08:54)
[2017-06-22] MEDS: PANTOPRAZOLE (EC) 40 MG TAB PO SCH (08:54)
[2017-06-22] MEDS: CARBIDOPA/LEVODOPA (25/100) TAB PO SCH ×2 (08:54→21:26)
[2017-06-22] MEDS: SODIUM CHLORIDE 1 GM TAB PO SCH ×2 (08:54→21:26)
[2017-06-22] MEDS: ASPIRIN (EC) 81 MG TAB PO SCH (08:54)
[2017-06-22] MEDS: ARTIFICIAL TEARS 15 ML OPH BOTH EYES SCH ×2 (08:59→21:32)
[2017-06-22] MEDS: METOPROLOL 25 MG TAB PO SCH ×2 (09:03→21:30)
[2017-06-22] MEDS: ENOXAPARIN 30 MG/0.3 ML SYG SC SCH (09:06)
--- NOTE | 2017-06-22 11:13 | PN ---
Date/Time of Note Date/Time of Note DATE: 06/22/17 TIME: 10:35 Assessment/Plan VTE Prophylaxis VTE Prophylaxis Intervention: other Lines/Catheters IV Catheter Type (from Nrsg): Peripheral IV Assessment/Plan Assessment/Plan - Abdominal pain. Considering her age, DNR code status, being asymptomatic, will do comfort measures, cont to monitor - CT of the abdomen- 1. Diverticulosis without diverticulitis. 2. Cholelithiasis without gallbladder distension or adjacent mesenteric inflammatory changes. 3. Distended rectum contained large amounts of retained fecal matter. Correlate for fecal impaction. 4. Lingular and bilateral lower lobe interstitial pulmonary fibrosis and less likely chronic infiltrates. 5. Bilateral renal cysts. - MDR Proteus mirabilis urinary tract infection, will change Zosyn to amikacin. - Monitor postvoid residual. - per Dr. Zaldivar in ID consultation. - Possible dysphagia, patient seen by speech therapist- recommended diet - on cardiac diet - Hypertension. Continue metoprolol. - Parkinsonism, stable. Continue Sinemet. - Dyslipidemia. Continue Lipitor. - Hyponatremia -- resolved - Hyperkalemia - resolved Further recommendations based on clinical course. Plan of care discussed with Dr. King Further recommendations based on clinical course. Plan of care discussed with Dr. King Subjective 24 Hr Interval Summary Free Text/Dictation afebrile, alert, responsive, seems comfortable, dw staff- CT abdomen pending. Constitutional: requiring O2 Respiratory: no complaints Cardiovascular: no complaints Gastrointestinal: pain Genitourinary: no complaints Musculoskeletal: no complaints Exam/Review of Systems Vital Signs Vitals Vital Signs Date Time Temp Pulse Resp B/P Pulse Ox O2 Delivery O2 Flow Rate FiO2 06/22/17 08:34 21 06/22/17 08:34 60 18 Nasal Cannula 2.0 06/22/17 08:00 98.1 134/64 97 Intake and Output 06/21/17 06/21/17 06/22/17 15:00 23:00 07:00 Intake Total 250 ml 750 ml 630 ml Balance 250 ml 750 ml 630 ml Exam Constitutional: alert, well developed Psych: nl mood/affect Respiratory: clear to auscultation, diminished breath sounds Cardiovascular: nl pulses, other (s1s2) Gastrointestinal: soft, tender Extremities: normal pulses Neurological: confused Results Result Diagram: 11/4/17 0521 11/4/17 0521 Results 24 hrs Laboratory Tests Test 06/22/17 05:21 White Blood Count 6.9 Red Blood Count 3.74 L Hemoglobin 12.0 Hematocrit 36.8 L Mean Corpuscular Volume 98.4 Mean Corpuscular Hemoglobin 32.1 Mean Corpuscular Hemoglobin Concent 32.6 Red Cell Distribution Width 11.9 Platelet Count 228 Mean Platelet Volume 9.3 Neutrophils % 55.1 Lymphocytes % 26.9 Monocytes % 8.1 Eosinophils % 9.2 H Basophils % 0.3 Nucleated Red Blood Cells % 0.0 Neutrophils # 3.8 Lymphocytes # 1.9 Monocytes # 0.6 Eosinophils # 0.6 H Basophils # 0.0 Nucleated Red Blood Cells # 0.0 Sodium Level 137 Potassium Level 3.7 Chloride Level 99 Carbon Dioxide Level 26 Anion Gap 16 Blood Urea Nitrogen 11 Creatinine 0.60 Glucose Level 109 Calcium Level 8.5 Total Bilirubin 0.3 Direct Bilirubin 0.00 Indirect Bilirubin 0.3 Aspartate Amino Transf (AST/SGOT) 21 Alanine Aminotransferase (ALT/SGPT) 22 Alkaline Phosphatase 41 L Total Protein 7.4 Albumin 4.0 Globulin 3.40 H Albumin/Globulin Ratio 1.17 Medications Medications Current Medications Ondansetron HCl (Zofran Inj) 4 mg Q6H PRN IV NAUSEA AND/OR VOMITING; Start 06/19/17 at 23:00 Aspirin (Halfprin) 81 mg DAILY PO Last administered on 06/22/17 08:54; Admin Dose 81 MG; Start 06/20/17 at 09:00 Atorvastatin Calcium (Lipitor) 20 mg QHS PO Last administered on 06/21/17 20: 09; Admin Dose 20 MG; Start 06/20/17 at 21:00 Bisacodyl (Dulcolax Supp) 10 mg Q24H UT ; Start 06/19/17 at 23:00 Carbidopa/Levodopa (Sinemet (25/ 100)) 1 tab BID PO Last administered on 08:54; Admin Dose 1 TAB; Start 06/20/17 at 21:00 Cholecalciferol (Vitamin D) 1,000 unit DAILY PO Last administered on 06/22/17 08:54; Admin Dose 1,000 UNIT; Start 06/20/17 at 09:00 Gabapentin (Neurontin) 100 mg QHS PO Last administered on 06/21/17 20:10; Admin Dose 100 MG; Start 06/20/17 at 21:00 Al Hydrox/Mg Hydrox/Simethicone (Mag-Al Plus) 30 ml Q4 PO Last administered on 06/22/17 09:01; Admin Dose 30 ML; Start 06/20/17 at 01:00 Metoprolol Tartrate (Lopressor) 12.5 mg BID PO Last administered on 06/22/17 09:03; Admin Dose 12.5 MG; Start 06/20/17 at 21:00 Sodium Chloride (Nacl) 1 gm BID PO Last administered on 06/22/17 08:54; Admin Dose 1 GM; Start 06/19/17 at 23:30 Eye Lubricant (Artificial Tears Oph) 1 drop BID BOTH EYES Last administered on 06/22/17 08:59; Admin Dose 1 DROP; Start 06/20/17 at 21:00 Acetaminophen 650 mg 650 mg Q6H PRN PO PAIN AND OR ELEVATED TEMP Last administered on 06/21/17 11:04; Admin Dose 650 MG; Start 06/19/17 at 23:00 Sodium Chloride (NS) 1,000 ml @ 50 mls/hr Q20H IV Last administered on 12:04; Admin Dose 50 MLS/HR; Start 06/20/17 at 14:00 Enoxaparin Sodium (Lovenox) 30 mg DAILY SC Last administered on 06/22/17 09:06 ; Admin Dose 30 MG; Start 06/20/17 at 15:00 Amikacin Sulfate (Amikacin Iv Per Pharmacy) AMIKACIN PER PHARMACY NOTE XX ; Start 06/21/17 at 16:00 Acetaminophen/ Hydrocodone Bitart 1 tab 1 tab Q4H PRN PO PAIN Last administered on 06/21/17 21:12; Admin Dose 1 TAB; Start 06/21/17 at 16:00 Amikacin Sulfate/ Sodium Chloride (Amikacin/NS) 101 ml @ 102 mls/hr Q24H IVPB Last administered on 06/21/17 18:58; Admin Dose 102 MLS/HR; Start 06/21/17 at 17:00 Zolpidem Tartrate (Ambien) 5 mg HS PRN PO INSOMNIA Last administered on 00:43; Admin Dose 5 MG; Start 06/22/17 at 01:00 ABBY JOEL Jun 22, 2017 10:45
[2017-06-22 15:26] VITALS: BP 135/62; RESP 16
[2017-06-22] MEDS: SOD CHLORIDE 0.9% 1,000 ML IV SCH (16:16)
[2017-06-22] MEDS: AMIKACIN 250 MG in SOD CHLORIDE 0.9% 100 ML IVPB SCH (17:05)
[2017-06-22] MEDS: GABAPENTIN 100 MG CAP PO SCH (21:26)
[2017-06-22] MEDS: POLYETHYLENE GLYCOL 17 GM PACKET PO SCH (21:26)
[2017-06-22] MEDS: ATORVASTATIN 20 MG TAB PO SCH (21:26)
[2017-06-22] MEDS: DOCUSATE SODIUM 100 MG CAP PO SCH (21:26)
[2017-06-22] MEDS: ACETAMINOPHEN 325 MG TAB PO PRN (21:31)
[2017-06-22] MEDS: BISACODYL 10 MG SUPP PR SCH (23:00)
[2017-06-23 01:37] VITALS: BP 115/68; RESP 20
[2017-06-23] MEDS: LEVALBUTEROL (NEB) 0.63 MG/3 ML AMP HHN SCH ×4 (01:48→20:19)
[2017-06-23] MEDS: SOD CHLORIDE 0.9% 1,000 ML IV SCH ×2 (02:00→12:02)
[2017-06-23 06:37] LABS: BASOPHILS % 0.2 % (0.0-2.0); EOSINOPHILS # 0.5 10^3/ul (0.0-0.5); EOSINOPHILS % 7.9 % (0.0-7.0); HEMATOCRIT 34.2 % (37.0-47.0); HEMOGLOBIN 11.5 g/dl (12.0-16.0); LYMPHOCYTES # 2.4 10^3/ul (0.8-2.9); LYMPHOCYTES % 39.1 % (15.0-51.0); MEAN CORPUSCULAR HGB CONC 33.6 g/dl (32.0-37.0); MEAN CORPUSCULAR VOLUME 98.3 fl (82.0-101.0); MEAN PLATELET VOLUME 9.5 fl (7.4-10.4); MONOCYTE # 0.6 10^3/ul (0.3-0.9); MONOCYTES % 9.5 % (0.0-11.0); NEUTROPHIL # 2.6 10^3/ul (1.6-7.5); PLATELET COUNT 223 10^3/UL (140-415); RED BLOOD COUNT 3.48 10^6/ul (4.20-5.40); RED CELL DISTRIBUTION WIDTH 11.9 % (11.5-14.5); WHITE BLOOD COUNT 6.1 10^3/ul (4.8-10.8)
[2017-06-23 07:08] LABS: CALCIUM 8.6 mg/dl (8.4-10.2); CREATININE 0.61 mg/dl (0.44-1.00); POTASSIUM 3.8 mmol/L (3.5-5.1)
[2017-06-23 07:16] VITALS: BP 134/63; RESP 16
[2017-06-23] MEDS: CARBIDOPA/LEVODOPA (25/100) TAB PO SCH ×2 (08:56→20:06)
[2017-06-23] MEDS: SODIUM CHLORIDE 1 GM TAB PO SCH ×2 (08:56→20:05)
[2017-06-23] MEDS: DOCUSATE SODIUM 100 MG CAP PO SCH ×2 (08:56→20:05)
[2017-06-23] MEDS: ASPIRIN (EC) 81 MG TAB PO SCH (08:56)
[2017-06-23] MEDS: METOPROLOL 25 MG TAB PO SCH ×2 (08:56→20:07)
[2017-06-23] MEDS: PANTOPRAZOLE (EC) 40 MG TAB PO SCH (08:56)
[2017-06-23] MEDS: CHOLECALCIFEROL 1,000 UNIT TAB PO SCH (08:56)
[2017-06-23] MEDS: POLYETHYLENE GLYCOL 17 GM PACKET PO SCH ×2 (08:57→20:05)
[2017-06-23] MEDS: AL HYDROX/MG HYDROX/SIMETH 30 ML CUP PO SCH ×2 (08:57→20:05)
[2017-06-23] MEDS: ENOXAPARIN 30 MG/0.3 ML SYG SC SCH (09:06)
[2017-06-23] MEDS: ARTIFICIAL TEARS 15 ML OPH BOTH EYES SCH ×2 (09:07→20:07)
--- NOTE | 2017-06-23 11:59 | PN ---
Date/Time of Note Date/Time of Note DATE: 06/23/17 TIME: 11:48 Assessment/Plan VTE Prophylaxis VTE Prophylaxis Intervention: other Lines/Catheters IV Catheter Type (from Nrsg): Peripheral IV Assessment/Plan Assessment/Plan - Abdominal pain. Considering her age, DNR code status, being asymptomatic, will do comfort measures, cont to monitor - CT of the abdomen- 1. Diverticulosis without diverticulitis. 2. Cholelithiasis without gallbladder distension or adjacent mesenteric inflammatory changes. 3. Distended rectum contained large amounts of retained fecal matter. Correlate for fecal impaction. 4. Lingular and bilateral lower lobe interstitial pulmonary fibrosis and less likely chronic infiltrates. 5. Bilateral renal cysts. - MDR Proteus mirabilis urinary tract infection, will change Zosyn to amikacin. - Monitor postvoid residual. - per Dr. Zaldivar in ID consultation. - Possible dysphagia, patient seen by speech therapist- recommended diet - on cardiac diet - Hypertension. Continue metoprolol. - Parkinsonism, stable. Continue Sinemet. - Dyslipidemia. Continue Lipitor. Further recommendations based on clinical course. Plan of care discussed with Dr. King Subjective 24 Hr Interval Summary Respiratory: no complaints Cardiovascular: no complaints Gastrointestinal: no complaints Exam/Review of Systems Vital Signs Vitals Vital Signs Date Time Temp Pulse Resp B/P Pulse Ox O2 Delivery O2 Flow Rate FiO2 06/23/17 10:14 58 16 98 21 06/23/17 07:16 97.7 134/63 06/22/17 08:34 Intake and Output 06/22/17 06/22/17 06/23/17 15:00 23:00 07:00 Intake Total 902 ml 710 ml Balance 902 ml 710 ml Exam Constitutional: alert, well developed Respiratory: diminished breath sounds, normal air movement Cardiovascular: nl pulses, other (s1s2) Gastrointestinal: non-tender, soft Musculoskeletal: nl extremities to inspection Extremities: normal pulses Neurological: confused Results Result Diagram: 06/23/1752406/23/17 0525 Results 24 hrs Laboratory Tests Test 06/23/17 05:25 White Blood Count 6.1 Red Blood Count 3.48 L Hemoglobin 11.5 L Hematocrit 34.2 L Mean Corpuscular Volume 98.3 Mean Corpuscular Hemoglobin 33.0 Mean Corpuscular Hemoglobin Concent 33.6 Red Cell Distribution Width 11.9 Platelet Count 223 Mean Platelet Volume 9.5 Neutrophils % 43.0 Lymphocytes % 39.1 Monocytes % 9.5 Eosinophils % 7.9 H Basophils % 0.2 Nucleated Red Blood Cells % 0.0 Neutrophils # 2.6 Lymphocytes # 2.4 Monocytes # 0.6 Eosinophils # 0.5 Basophils # 0.0 Nucleated Red Blood Cells # 0.0 Sodium Level 138 Potassium Level 3.8 Chloride Level 101 Carbon Dioxide Level 27 Anion Gap 14 Blood Urea Nitrogen 8 Creatinine 0.61 Glucose Level 92 Calcium Level 8.6 Medications Medications Current Medications Ondansetron HCl (Zofran Inj) 4 mg Q6H PRN IV NAUSEA AND/OR VOMITING; Start 06/19/17 at 23:00 Aspirin (Halfprin) 81 mg DAILY PO Last administered on 06/23/17 08:56; Admin Dose 81 MG; Start 06/20/17 at 09:00 Atorvastatin Calcium (Lipitor) 20 mg QHS PO Last administered on 06/22/17 21: 26; Admin Dose 20 MG; Start 06/20/17 at 21:00 Bisacodyl (Dulcolax Supp) 10 mg Q24H SC ; Start 06/19/17 at 23:00 Carbidopa/Levodopa (Sinemet (25/ 100)) 1 tab BID PO Last administered on 08:56; Admin Dose 1 TAB; Start 06/20/17 at 21:00 Cholecalciferol (Vitamin D) 1,000 unit DAILY PO Last administered on 06/23/17 08:56; Admin Dose 1,000 UNIT; Start 06/20/17 at 09:00 Gabapentin (Neurontin) 100 mg QHS PO Last administered on 06/22/17 21:26; Admin Dose 100 MG; Start 06/20/17 at 21:00 Metoprolol Tartrate (Lopressor) 12.5 mg BID PO Last administered on 06/23/17 08:56; Admin Dose 12.5 MG; Start 06/20/17 at 21:00 Sodium Chloride (Nacl) 1 gm BID PO Last administered on 06/23/17 08:56; Admin Dose 1 GM; Start 06/19/17 at 23:30 Eye Lubricant (Artificial Tears Oph) 1 drop BID BOTH EYES Last administered on 06/23/17 09:07; Admin Dose 1 DROP; Start 06/20/17 at 21:00 Acetaminophen 650 mg 650 mg Q6H PRN PO PAIN AND OR ELEVATED TEMP Last administered on 06/22/17 21:31; Admin Dose 650 MG; Start 06/19/17 at 23:00 Sodium Chloride (NS) 1,000 ml @ 50 mls/hr Q20H IV Last administered on 16:16; Admin Dose 50 MLS/HR; Start 06/20/17 at 14:00 Enoxaparin Sodium (Lovenox) 30 mg DAILY SC Last administered on 06/23/17 09:06 ; Admin Dose 30 MG; Start 06/20/17 at 15:00 Amikacin Sulfate (Amikacin Iv Per Pharmacy) AMIKACIN PER PHARMACY NOTE XX ; Start 06/21/17 at 16:00 Acetaminophen/ Hydrocodone Bitart 1 tab 1 tab Q4H PRN PO PAIN Last administered on 06/21/17 21:12; Admin Dose 1 TAB; Start 06/21/17 at 16:00 Amikacin Sulfate/ Sodium Chloride (Amikacin/NS) 101 ml @ 102 mls/hr Q24H IVPB Last administered on 06/22/17 17:05; Admin Dose 102 MLS/HR; Start 06/21/17 at 17:00 Zolpidem Tartrate (Ambien) 5 mg HS PRN PO INSOMNIA Last administered on 21:31; Admin Dose 5 MG; Start 06/22/17 at 01:00 Al Hydrox/Mg Hydrox/Simethicone (Mag-Al Plus) 30 ml BID PO Last administered on 06/23/17 08:57; Admin Dose 30 ML; Start 06/22/17 at 21:00 Miscellaneous Information (*Rx Drug Level Order Reminder*) AMIKACIN TROUGH 06/23 AT 1... ONCE XX ; Start 06/23/17 at 16:00; Stop 06/23/17 at 18:31 Docusate Sodium (Colace) 100 mg BID PO Last administered on 06/23/17 08:56; Admin Dose 100 MG; Start 06/22/17 at 21:00 Polyethylene Glycol (Miralax) 17 gm BID PO Last administered on 06/23/17 08:57 ; Admin Dose 17 GM; Start 06/22/17 at 21:00 ABBY JOEL Jun 23, 2017 11:58
[2017-06-23] MEDS: traMADol 50 MG TAB PO SCH ×2 (12:55→20:05)
[2017-06-23 14:59] VITALS: BP 133/60; RESP 14
[2017-06-23] MEDS: AMIKACIN 250 MG in SOD CHLORIDE 0.9% 100 ML IVPB SCH (16:12)
[2017-06-23] MEDS ORDERED: VITAMIN A & D 5 GM OINT PACKET TOP ONE (17:01)
--- NOTE | 2017-06-23 17:54 | CONS ---
Date/Time of Note Date/Time of Note DATE: 06/23/17 TIME: 17:46 Assessment/Plan Assessment/Plan Chief Complaint/Hosp Course ID PROGRESS NOTE CURRENT ABX: => Amikacin #3 s/p Zosyn 24H INTERVAL SUMMARY * NO fevers, WBC stable, tolerating ABX Physical Exam Const: Resting in bed calm, VSS, no fevers, NAD Head: Atraumatic , normocephalic Eyes: Normal Conjunctiva, anicteric ENT: Normal External Ears, Nose Neck: Supple, full rom Resp: Equal chest rise bilaterally, without dyspnea on observation , room air Cardio: Regular rate and rhythm Abd: Soft, non tender Skin: No petechiae or rashes Back: Deferred, laying supine on back Ext: No cyanosis, or edema ID ASSESSMENT 86 yo F w/PMHx hypertension, dyslipidemia, parkinsonism admit with: 1. SIRS w/low grade TMax 99.0+, transient hypotension due to #2 2. GNR UTI URINE CULTURE Final Organism 1 PROTEUS MIRABILIS COLONY COUNT >100,000 CFU/ml 3. ABD Pain -- Likely due to acute UTI 4. Diverticulosis without diverticulitis, per CT 5. Cholelithiasis without gallbladder distension or adjacent mesenteric inflammatory changes, per CT 6. Distended rectum contained large amounts of retained fecal matter. Correlate for fecal impaction, per CT 7. Lingular and bilateral lower lobe interstitial pulmonary fibrosis and less likely chronic infiltrates, per CT INVASIVES: PICC (06/14/17) ABX ALLERGIES: KNDA CURRENT ABX: => Amikacin #3 s/p Zosyn ID RECOMMENDATIONS 1. Continue Amikacin for 7 days due to MDRO , watch renal fx . Problems: Consultation Date/Type/Reason Admit Date/Time Jun 19, 2017 at 21:03 Initial Consult Date Exam/Review of Systems Vital Signs Vitals Vital Signs Date Time Temp Pulse Resp B/P Pulse Ox O2 Delivery O2 Flow Rate FiO2 06/23/17 14:59 98.2 63 14 133/60 97 06/23/17 14:23 21 06/22/17 08:34 Intake and Output 06/22/17 06/22/17 06/23/17 15:00 23:00 07:00 Intake Total 902 ml 710 ml Balance 902 ml 710 ml Results Result Diagram: 06/23/1752406/23/17 0525 Results 24 hrs Laboratory Tests Test 06/23/17 05:25 White Blood Count 6.1 Red Blood Count 3.48 L Hemoglobin 11.5 L Hematocrit 34.2 L Mean Corpuscular Volume 98.3 Mean Corpuscular Hemoglobin 33.0 Mean Corpuscular Hemoglobin Concent 33.6 Red Cell Distribution Width 11.9 Platelet Count 223 Mean Platelet Volume 9.5 Neutrophils % 43.0 Lymphocytes % 39.1 Monocytes % 9.5 Eosinophils % 7.9 H Basophils % 0.2 Nucleated Red Blood Cells % 0.0 Neutrophils # 2.6 Lymphocytes # 2.4 Monocytes # 0.6 Eosinophils # 0.5 Basophils # 0.0 Nucleated Red Blood Cells # 0.0 Sodium Level 138 Potassium Level 3.8 Chloride Level 101 Carbon Dioxide Level 27 Anion Gap 14 Blood Urea Nitrogen 8 Creatinine 0.61 Glucose Level 92 Calcium Level 8.6 Medications Medications Current Medications Ondansetron HCl (Zofran Inj) 4 mg Q6H PRN IV NAUSEA AND/OR VOMITING; Start 06/19/17 at 23:00 Aspirin (Halfprin) 81 mg DAILY PO Last administered on 06/23/17 08:56; Admin Dose 81 MG; Start 06/20/17 at 09:00 Atorvastatin Calcium (Lipitor) 20 mg QHS PO Last administered on 06/22/17 21: 26; Admin Dose 20 MG; Start 06/20/17 at 21:00 Bisacodyl (Dulcolax Supp) 10 mg Q24H AL ; Start 06/19/17 at 23:00 Carbidopa/Levodopa (Sinemet (25/ 100)) 1 tab BID PO Last administered on 08:56; Admin Dose 1 TAB; Start 06/20/17 at 21:00 Cholecalciferol (Vitamin D) 1,000 unit DAILY PO Last administered on 06/23/17 08:56; Admin Dose 1,000 UNIT; Start 06/20/17 at 09:00 Gabapentin (Neurontin) 100 mg QHS PO Last administered on 06/22/17 21:26; Admin Dose 100 MG; Start 06/20/17 at 21:00 Metoprolol Tartrate (Lopressor) 12.5 mg BID PO Last administered on 06/23/17 08:56; Admin Dose 12.5 MG; Start 06/20/17 at 21:00 Sodium Chloride (Nacl) 1 gm BID PO Last administered on 06/23/17 08:56; Admin Dose 1 GM; Start 06/19/17 at 23:30 Eye Lubricant (Artificial Tears Oph) 1 drop BID BOTH EYES Last administered on 06/23/17 09:07; Admin Dose 1 DROP; Start 06/20/17 at 21:00 Acetaminophen 650 mg 650 mg Q6H PRN PO PAIN AND OR ELEVATED TEMP Last administered on 06/22/17 21:31; Admin Dose 650 MG; Start 06/19/17 at 23:00 Sodium Chloride (NS) 1,000 ml @ 50 mls/hr Q20H IV Last administered on 12:02; Admin Dose 50 MLS/HR; Start 06/20/17 at 14:00 Enoxaparin Sodium (Lovenox) 30 mg DAILY SC Last administered on 06/23/17 09:06 ; Admin Dose 30 MG; Start 06/20/17 at 15:00 Amikacin Sulfate (Amikacin Iv Per Pharmacy) AMIKACIN PER PHARMACY NOTE XX ; Start 06/21/17 at 16:00 Acetaminophen/ Hydrocodone Bitart 1 tab 1 tab Q4H PRN PO PAIN Last administered on 06/21/17 21:12; Admin Dose 1 TAB; Start 06/21/17 at 16:00 Amikacin Sulfate/ Sodium Chloride (Amikacin/NS) 101 ml @ 102 mls/hr Q24H IVPB Last administered on 06/23/17 16:12; Admin Dose 102 MLS/HR; Start 06/21/17 at 17:00 Zolpidem Tartrate (Ambien) 5 mg HS PRN PO INSOMNIA Last administered on 21:31; Admin Dose 5 MG; Start 06/22/17 at 01:00 Al Hydrox/Mg Hydrox/Simethicone (Mag-Al Plus) 30 ml BID PO Last administered on 06/23/17 08:57; Admin Dose 30 ML; Start 06/22/17 at 21:00 Miscellaneous Information (*Rx Drug Level Order Reminder*) AMIKACIN TROUGH 06/23 AT 1... ONCE XX ; Start 06/23/17 at 16:00; Stop 06/23/17 at 18:31 Docusate Sodium (Colace) 100 mg BID PO Last administered on 06/23/17 08:56; Admin Dose 100 MG; Start 06/22/17 at 21:00 Polyethylene Glycol (Miralax) 17 gm BID PO Last administered on 06/23/17 08:57 ; Admin Dose 17 GM; Start 06/22/17 at 21:00 Tramadol HCl (Ultram) 50 mg BID PO Last administered on 06/23/17 12:55; Admin Dose 50 MG; Start 06/23/17 at 12:30 JONATHAN CLIFTON NP Jun 23, 2017 17:54
[2017-06-23 19:58] VITALS: BP 139/65; RESP 18
[2017-06-23] MEDS: GABAPENTIN 100 MG CAP PO SCH (20:05)
[2017-06-23] MEDS: ATORVASTATIN 20 MG TAB PO SCH (20:06)
[2017-06-23] MEDS: ZOLPIDEM 5 MG TAB PO PRN (20:11)
[2017-06-23] MEDS: BISACODYL 10 MG SUPP PR SCH (23:00)
[2017-06-24] MEDS: LEVALBUTEROL (NEB) 0.63 MG/3 ML AMP HHN SCH ×4 (02:11→20:38)
[2017-06-24 02:29] VITALS: BP 112/55; RESP 18
[2017-06-24 06:23] LABS: BASOPHILS % 0.1 % (0.0-2.0); EOSINOPHILS # 0.6 10^3/ul (0.0-0.5); EOSINOPHILS % 7.8 % (0.0-7.0); HEMATOCRIT 33.7 % (37.0-47.0); HEMOGLOBIN 11.3 g/dl (12.0-16.0); LYMPHOCYTES % 27.2 % (15.0-51.0); MEAN CORPUSCULAR HEMOGLOBIN 32.8 pg (29.0-33.0); MEAN CORPUSCULAR HGB CONC 33.5 g/dl (32.0-37.0); MEAN CORPUSCULAR VOLUME 97.7 fl (82.0-101.0); MEAN PLATELET VOLUME 9.3 fl (7.4-10.4); MONOCYTE # 0.6 10^3/ul (0.3-0.9); MONOCYTES % 8.4 % (0.0-11.0); NEUTROPHIL # 4.1 10^3/ul (1.6-7.5); NEUTROPHILS % 56.1 % (39.0-77.0); PLATELET COUNT 230 10^3/UL (140-415); RED BLOOD COUNT 3.45 10^6/ul (4.20-5.40); RED CELL DISTRIBUTION WIDTH 11.9 % (11.5-14.5); WHITE BLOOD COUNT 7.3 10^3/ul (4.8-10.8)
[2017-06-24 06:55] LABS: CALCIUM 8.6 mg/dl (8.4-10.2); CREATININE 0.61 mg/dl (0.44-1.00); POTASSIUM 3.9 mmol/L (3.5-5.1)
[2017-06-24 07:53] VITALS: BP 145/63; RESP 18
--- NOTE | 2017-06-24 08:14 | PN ---
DATE: 06/22/2017 INFECTIOUS DISEASE PROGRESS NOTE SUBJECTIVE: No acute events overnight. Patient is awake, has a visitor at bedside. Denies pain, d iscomfort. No fevers. LABORATORY DATA: WBC 6.9, no shift, no bands. BUN 11, creatinine 0.60. MICROBIOLOGY: Urine culture on admission grew Proteus mirabilis susceptible to aminoglycosides. ANTIMICROBIALS: Patient is on amikacin, status post Zosyn. PHYSICAL EXAMINATION: GENERAL: This is a fragile, well-developed, elderly woman who is awake, in no distress. HEENT: Atraumatic, normocephalic. Sclerae anicteric. Buccal mucosa dry. NECK: Supple. CHEST: Rise is symmetrical. Breath sounds with scattered crackles. HEART: S1, S2. ABDOMEN: Soft. Bowel sounds present. EXTREMITIES: Without cyanosis. ASSESSMENT: 1. Urinary tract infection. 2. Constipation with fecal impaction. 3. History of Parkinson's dementia and hypertension. 4. Status post hyperkalemia, resolved. PLAN: The patient remains stable. We will continue her on current antibiotics. Consider stool sof teners and laxatives, possible enema. Continue anti-aspiration precautions. Dictated By: BA SARKAR CREPING MACHINE OPERATOR for GABBIE ALBERT/JOSEPH Conf#: [id number] DID#: [id number]
[2017-06-24] MEDS: PANTOPRAZOLE (EC) 40 MG TAB PO SCH (08:54)
[2017-06-24] MEDS: ARTIFICIAL TEARS 15 ML OPH BOTH EYES SCH ×2 (08:55→21:00)
[2017-06-24] MEDS: CARBIDOPA/LEVODOPA (25/100) TAB PO SCH ×2 (08:56→21:00)
[2017-06-24] MEDS: DOCUSATE SODIUM 100 MG CAP PO SCH ×2 (08:56→21:00)
[2017-06-24] MEDS: SODIUM CHLORIDE 1 GM TAB PO SCH ×2 (08:56→21:00)
[2017-06-24] MEDS: ASPIRIN (EC) 81 MG TAB PO SCH (08:56)
[2017-06-24] MEDS: POLYETHYLENE GLYCOL 17 GM PACKET PO SCH ×2 (08:56→21:00)
[2017-06-24] MEDS: CHOLECALCIFEROL 1,000 UNIT TAB PO SCH (08:56)
[2017-06-24] MEDS: AL HYDROX/MG HYDROX/SIMETH 30 ML CUP PO SCH ×2 (08:57→21:00)
[2017-06-24] MEDS: METOPROLOL 25 MG TAB PO SCH ×2 (08:58→21:00)
[2017-06-24] MEDS: traMADol 50 MG TAB PO SCH ×2 (09:03→21:00)
[2017-06-24] MEDS: ENOXAPARIN 30 MG/0.3 ML SYG SC SCH (09:16)
[2017-06-24] MEDS: SOD CHLORIDE 0.9% 1,000 ML IV SCH ×2 (12:24→18:00)
[2017-06-24 13:53] VITALS: BP 142/63; RESP 18
[2017-06-24] MEDS: AMIKACIN 250 MG in SOD CHLORIDE 0.9% 100 ML IVPB SCH (17:00)
[2017-06-24 20:00] VITALS: BP 112/57; RESP 18
[2017-06-24] MEDS: GABAPENTIN 100 MG CAP PO SCH (21:00)
[2017-06-24] MEDS: ATORVASTATIN 20 MG TAB PO SCH (21:00)
[2017-06-24] MEDS: BISACODYL 10 MG SUPP PR SCH ×2 (23:00→23:40)
[2017-06-25] MEDS: LEVALBUTEROL (NEB) 0.63 MG/3 ML AMP HHN SCH ×4 (01:50→19:54)
[2017-06-25 02:26] VITALS: BP 131/60; RESP 18
[2017-06-25 07:26] VITALS: BP 133/64; RESP 14
--- NOTE | 2017-06-25 07:41 | PN ---
DATE: 06/24/2017 INTERNAL MEDICINE PROGRESS NOTE SUBJECTIVE: Followup on 86-year-old female, was admitted with abdominal pain. The patient still co mplains of diffuse abdominal pain; however, able to tolerate diet well. PHYSICAL ASSESSMENT: GENERAL: Elderly female, currently is awake, alert. LUNGS: Sounds slightly diminished. HEART: Normal S1, S2. ABDOMEN: Round, soft, nondistended. Patient complains of right upper quadrant tenderness. EXTREMITIES: No edema. ASSESSMENT AND PLAN: 1. Abdominal pain. Patient with cholelithiasis. We will order HIDA scan when computers, which hav e currently stopped working, will come back. 2. Pulmonary fibrosis. 3. Urinary tract infection. Further recommendations based on clinical course. Plan of care discussed with Dr. King. Dictated By: ERMIAS TOBAR REMOTE BROADCAST ENGINEER for SUJATHA KING MD SR/NTS Conf#: [id number] DID#: [id number] CC: SUJATHA IKNG MD;*EndCC*
[2017-06-25] MEDS: SODIUM CHLORIDE 1 GM TAB PO SCH ×2 (09:04→22:54)
[2017-06-25] MEDS: AL HYDROX/MG HYDROX/SIMETH 30 ML CUP PO SCH ×2 (09:04→22:55)
[2017-06-25] MEDS: POLYETHYLENE GLYCOL 17 GM PACKET PO SCH ×3 (09:04→23:00)
[2017-06-25] MEDS: PANTOPRAZOLE (EC) 40 MG TAB PO SCH (09:05)
[2017-06-25] MEDS: DOCUSATE SODIUM 100 MG CAP PO SCH ×2 (09:05→22:56)
[2017-06-25] MEDS: CARBIDOPA/LEVODOPA (25/100) TAB PO SCH ×2 (09:05→22:54)
[2017-06-25] MEDS: CHOLECALCIFEROL 1,000 UNIT TAB PO SCH (09:05)
[2017-06-25] MEDS: METOPROLOL 25 MG TAB PO SCH ×2 (09:06→22:58)
[2017-06-25] MEDS: ENOXAPARIN 30 MG/0.3 ML SYG SC SCH (09:10)
[2017-06-25] MEDS: ASPIRIN (EC) 81 MG TAB PO SCH (09:11)
[2017-06-25] MEDS: ARTIFICIAL TEARS 15 ML OPH BOTH EYES SCH ×2 (09:17→22:58)
[2017-06-25] MEDS: traMADol 50 MG TAB PO SCH (09:18)
--- NOTE | 2017-06-25 12:11 | PN ---
Date/Time of Note Date/Time of Note DATE: 06/25/17 TIME: 12:10 Assessment/Plan VTE Prophylaxis VTE Prophylaxis Intervention: SCD's Lines/Catheters IV Catheter Type (from Nrs): Peripheral IV Assessment/Plan Chief Complaint/Hosp Course Patient pending HIDA scan today, Assessment/Plan - Abdominal pain. Cholelithiasis per CT abd. pending HIDA scan. - MDR Proteus mirabilis urinary tract infection, continue amikacin. Monitor postvoid residual. Dr. Zaldivar is following in infection disease consultation. - Possible dysphagia, patient able to tolerate pured diet, plan for reevaluation by speech therapy tomorrow - Hypertension. Continue metoprolol. - Parkinsonism, stable. Continue Sinemet. - Dyslipidemia. Continue Lipitor. Further recommendations based on clinical course. Plan of care discussed with Dr. King Problems: Exam/Review of Systems Vital Signs Vitals Vital Signs Date Time Temp Pulse Resp B/P Pulse Ox O2 Delivery O2 Flow Rate FiO2 06/25/17 08:26 68 20 96 21 06/25/17 07:26 98.7 133/64 06/22/17 08:34 Intake and Output 06/24/17 06/24/17 06/25/17 15:00 23:00 07:00 Intake Total 150 ml 820 ml Balance 150 ml 820 ml Exam Constitutional: alert, oriented Head: normocephalic Neck: supple Respiratory: normal air movement Cardiovascular: nl pulses Gastrointestinal: soft, tender Extremities: normal pulses Results Result Diagram: 06/24/17 0529 06/24/17 05 Results 24 hrs Laboratory Tests Test 06/25/17 07:21 Lab Scanned Report REFERENCE LAB Medications Medications Current Medications Ondansetron HCl (Zofran Inj) 4 mg Q6H PRN IV NAUSEA AND/OR VOMITING; Start 06/19/17 at 23:00 Aspirin (Halfprin) 81 mg DAILY PO Last administered on 06/25/17 09:11; Admin Dose 81 MG; Start 06/20/17 at 09:00 Atorvastatin Calcium (Lipitor) 20 mg QHS PO Last administered on 06/24/17 21: 00; Admin Dose 20 MG; Start 06/20/17 at 21:00 Bisacodyl (Dulcolax Supp) 10 mg Q24H [place] ; Start 06/19/17 at 23:00 Carbidopa/Levodopa (Sinemet (25/ 100)) 1 tab BID PO Last administered on 09:05; Admin Dose 1 TAB; Start 06/20/17 at 21:00 Cholecalciferol (Vitamin D) 1,000 unit DAILY PO Last administered on 06/25/17 09:05; Admin Dose 1,000 UNIT; Start 06/20/17 at 09:00 Gabapentin (Neurontin) 100 mg QHS PO Last administered on 06/24/17 21:00; Admin Dose 100 MG; Start 06/20/17 at 21:00 Metoprolol Tartrate (Lopressor) 12.5 mg BID PO Last administered on 06/25/17 09:06; Admin Dose 12.5 MG; Start 06/20/17 at 21:00 Sodium Chloride (Nacl) 1 gm BID PO Last administered on 06/25/17 09:04; Admin Dose 1 GM; Start 06/19/17 at 23:30 Eye Lubricant (Artificial Tears Oph) 1 drop BID BOTH EYES Last administered on 06/25/17 09:17; Admin Dose 1 DROP; Start 06/20/17 at 21:00 Acetaminophen 650 mg 650 mg Q6H PRN PO PAIN AND OR ELEVATED TEMP Last administered on 06/22/17 21:31; Admin Dose 650 MG; Start 06/19/17 at 23:00 Sodium Chloride (NS) 1,000 ml @ 50 mls/hr Q20H IV Last administered on 12:24; Admin Dose 50 MLS/HR; Start 06/20/17 at 14:00 Enoxaparin Sodium (Lovenox) 30 mg DAILY SC Last administered on 06/25/17 09:10 ; Admin Dose 30 MG; Start 06/20/17 at 15:00 Amikacin Sulfate (Amikacin Iv Per Pharmacy) AMIKACIN PER PHARMACY NOTE XX ; Start 06/21/17 at 16:00 Acetaminophen/ Hydrocodone Bitart 1 tab 1 tab Q4H PRN PO PAIN Last administered on 06/21/17 21:12; Admin Dose 1 TAB; Start 06/21/17 at 16:00 Amikacin Sulfate/ Sodium Chloride (Amikacin/NS) 101 ml @ 102 mls/hr Q24H IVPB Last administered on 11/5/17at 16:12; Admin Dose 102 MLS/HR; Start 06/21/17 at 17:00 Zolpidem Tartrate (Ambien) 5 mg HS PRN PO INSOMNIA Last administered on 20:11; Admin Dose 5 MG; Start 06/22/17 at 01:00 Al Hydrox/Mg Hydrox/Simethicone (Mag-Al Plus) 30 ml BID PO Last administered on 06/25/17 09:04; Admin Dose 30 ML; Start 06/22/17 at 21:00 Docusate Sodium (Colace) 100 mg BID PO Last administered on 06/25/17 09:05; Admin Dose 100 MG; Start 06/22/17 at 21:00 Polyethylene Glycol (Miralax) 17 gm BID PO Last administered on 06/25/17 09:04 ; Admin Dose 17 GM; Start 06/22/17 at 21:00 Tramadol HCl (Ultram) 50 mg BID PO Last administered on 06/25/17 09:18; Admin Dose 50 MG; Start 06/23/17 at 12:30 ERMIAS TOBAR Jun 25, 2017 12:11
--- NOTE | 2017-06-25 12:35 | CONS ---
Date/Time of Note Date/Time of Note DATE: 06/25/17 TIME: 12:33 Consult Date/Type/Reason Admit Date/Time Jun 19, 2017 at 21:03 Initial Consult Date Type of Consultation: ID Objective Vital Signs Date Time Temp Pulse Resp B/P Pulse Ox O2 Delivery O2 Flow Rate FiO2 06/25/17 08:26 68 20 96 21 06/25/17 07:26 98.7 133/64 06/22/17 08:34 Intake and Output 06/24/17 06/24/17 06/25/17 15:00 23:00 07:00 Intake Total 150 ml 820 ml Balance 150 ml 820 ml Results/Medications Result Diagram: 06/24/1729 06/24/17528 Results 24 hrs Laboratory Tests Test 06/25/17 07:21 Lab Scanned Report REFERENCE LAB Medications Current Medications Ondansetron HCl (Zofran Inj) 4 mg Q6H PRN IV NAUSEA AND/OR VOMITING; Start 06/19/17 at 23:00 Aspirin (Halfprin) 81 mg DAILY PO Last administered on 06/25/17 09:11; Admin Dose 81 MG; Start 06/20/17 at 09:00 Atorvastatin Calcium (Lipitor) 20 mg QHS PO Last administered on 06/24/17 21: 00; Admin Dose 20 MG; Start 06/20/17 at 21:00 Bisacodyl (Dulcolax Supp) 10 mg Q24H [place] ; Start 06/19/17 at 23:00 Carbidopa/Levodopa (Sinemet (25/ 100)) 1 tab BID PO Last administered on 09:05; Admin Dose 1 TAB; Start 06/20/17 at 21:00 Cholecalciferol (Vitamin D) 1,000 unit DAILY PO Last administered on 06/25/17 09:05; Admin Dose 1,000 UNIT; Start 06/20/17 at 09:00 Gabapentin (Neurontin) 100 mg QHS PO Last administered on 06/24/17 21:00; Admin Dose 100 MG; Start 06/20/17 at 21:00 Metoprolol Tartrate (Lopressor) 12.5 mg BID PO Last administered on 06/25/17 09:06; Admin Dose 12.5 MG; Start 06/20/17 at 21:00 Sodium Chloride (Nacl) 1 gm BID PO Last administered on 06/25/17 09:04; Admin Dose 1 GM; Start 06/19/17 at 23:30 Eye Lubricant (Artificial Tears Oph) 1 drop BID BOTH EYES Last administered on 06/25/17 09:17; Admin Dose 1 DROP; Start 06/20/17 at 21:00 Acetaminophen 650 mg 650 mg Q6H PRN PO PAIN AND OR ELEVATED TEMP Last administered on 06/22/17 21:31; Admin Dose 650 MG; Start 06/19/17 at 23:00 Sodium Chloride (NS) 1,000 ml @ 50 mls/hr Q20H IV Last administered on 12:24; Admin Dose 50 MLS/HR; Start 06/20/17 at 14:00 Enoxaparin Sodium (Lovenox) 30 mg DAILY SC Last administered on 06/25/17 09:10 ; Admin Dose 30 MG; Start 06/20/17 at 15:00 Amikacin Sulfate (Amikacin Iv Per Pharmacy) AMIKACIN PER PHARMACY NOTE XX ; Start 06/21/17 at 16:00 Acetaminophen/ Hydrocodone Bitart 1 tab 1 tab Q4H PRN PO PAIN Last administered on 06/21/17 21:12; Admin Dose 1 TAB; Start 06/21/17 at 16:00 Amikacin Sulfate/ Sodium Chloride (Amikacin/NS) 101 ml @ 102 mls/hr Q24H IVPB Last administered on 06/23/17 16:12; Admin Dose 102 MLS/HR; Start 06/21/17 at 17:00 Zolpidem Tartrate (Ambien) 5 mg HS PRN PO INSOMNIA Last administered on 20:11; Admin Dose 5 MG; Start 06/22/17 at 01:00 Al Hydrox/Mg Hydrox/Simethicone (Mag-Al Plus) 30 ml BID PO Last administered on 06/25/17 09:04; Admin Dose 30 ML; Start 06/22/17 at 21:00 Docusate Sodium (Colace) 100 mg BID PO Last administered on 06/25/17 09:05; Admin Dose 100 MG; Start 06/22/17 at 21:00 Polyethylene Glycol (Miralax) 17 gm BID PO Last administered on 06/25/17 09:04 ; Admin Dose 17 GM; Start 06/22/17 at 21:00 Tramadol HCl (Ultram) 50 mg BID PO Last administered on 06/25/17t 09:18; Admin Dose 50 MG; Start 06/23/17 at 12:30 Assessment/Plan Chief Complaint/Hosp Course SUBJECTIVE: No acute events overnight. Sleeping, looks comfortable. No fevers. MICROBIOLOGY: Urine culture on admission grew Proteus mirabilis susceptible to aminoglycosides. ANTIMICROBIALS: Amikacin PHYSICAL EXAMINATION: GENERAL: This is a fragile, well-developed, elderly woman who is awake, in no distress. HEENT: Atraumatic, normocephalic. Sclerae anicteric. Buccal mucosa dry. NECK: Supple. CHEST: Rise is symmetrical. Breath sounds with scattered crackles. HEART: S1, S2. ABDOMEN: Soft. Bowel sounds present. EXTREMITIES: Without cyanosis. ASSESSMENT: 1. Urinary tract infection. 2. Constipation with fecal impaction. 3. History of Parkinson's dementia and hypertension. 4. Status post hyperkalemia, resolved. PLAN: The patient remains stable. Continue abx for couple more days. Continue anti-aspiration precautions. [facility] staff Problems: BA SARKAR NP Jun 25, 2017 12:35
--- NOTE | 2017-06-25 13:36 | CONS ---
Date/Time of Note Date/Time of Note DATE: 06/25/17 TIME: 13:30 Consultation Date/Type/Reason Admit Date/Time Jun 19, 2017 at 21:03 Initial Consult Date THIS IS A LATE ENTERY FOR 06/24/17 DUE TO COMPUTER SYSTEM BEING DOWN YESTERDAY SUBJECTIVE: 86 y/o female being treated for UTI. No acute events overnight. Patient is awake. Denies pain, discomfort. No fevers. VS: 112/57 P:67 R:18 SO2:95% T: 97.6 LABORATORY DATA: WBC-7.3 H&H: 11.3/33.7 BMP=WNL MICROBIOLOGY: Urine culture on admission grew Proteus mirabilis susceptible to aminoglycosides. URINE CULTURE Final Organism 1 PROTEUS MIRABILIS COLONY COUNT >100,000 CFU/ml ANTIMICROBIALS: Patient is on amikacin PHYSICAL EXAMINATION: GENERAL: This is a fragile, well-developed, elderly woman who is awake, in no distress. HEENT: Atraumatic, normocephalic. Sclerae anicteric. Buccal mucosa dry. NECK: Supple. CHEST: Rise is symmetrical. Breath sounds with scattered crackles. HEART: S1, S2. ABDOMEN: Soft. Bowel sounds present. EXTREMITIES: Without cyanosis. ASSESSMENT: 1. Urinary tract infection. 2. Constipation with fecal impaction. 3. History of Parkinson's dementia and hypertension. 4. Status post hyperkalemia, resolved. PLAN: The patient remains stable. We will continue her on current antibiotics. Continue anti-aspiration precautions. Type of Consultation: ID Exam/Review of Systems Vital Signs Vitals Vital Signs Date Time Temp Pulse Resp B/P Pulse Ox O2 Delivery O2 Flow Rate FiO2 06/25/17 13:21 65 20 95 21 06/25/17 07:26 98.7 133/64 06/22/17 08:34 Intake and Output 06/24/17 06/24/17 06/25/17 15:00 23:00 07:00 Intake Total 150 ml 820 ml Balance 150 ml 820 ml Results Result Diagram: 06/24/17 0529 06/24/17 0529 Results 24 hrs Laboratory Tests Test 06/25/17 07:21 Lab Scanned Report REFERENCE LAB Medications Medications Current Medications Ondansetron HCl (Zofran Inj) 4 mg Q6H PRN IV NAUSEA AND/OR VOMITING; Start 06/19/17 at 23:00 Aspirin (Halfprin) 81 mg DAILY PO Last administered on 06/25/17 09:11; Admin Dose 81 MG; Start 06/20/17 at 09:00 Atorvastatin Calcium (Lipitor) 20 mg QHS PO Last administered on 06/24/17 21: 00; Admin Dose 20 MG; Start 06/20/17 at 21:00 Bisacodyl (Dulcolax Supp) 10 mg Q24H [place] ; Start 06/19/17 at 23:00 Carbidopa/Levodopa (Sinemet (25/ 100)) 1 tab BID PO Last administered on 09:05; Admin Dose 1 TAB; Start 06/20/17 at 21:00 Cholecalciferol (Vitamin D) 1,000 unit DAILY PO Last administered on 06/25/17 09:05; Admin Dose 1,000 UNIT; Start 06/20/17 at 09:00 Gabapentin (Neurontin) 100 mg QHS PO Last administered on 06/24/17 21:00; Admin Dose 100 MG; Start 06/20/17 at 21:00 Metoprolol Tartrate (Lopressor) 12.5 mg BID PO Last administered on 06/25/17 09:06; Admin Dose 12.5 MG; Start 06/20/17 at 21:00 Sodium Chloride (Nacl) 1 gm BID PO Last administered on 06/25/17 09:04; Admin Dose 1 GM; Start 06/19/17 at 23:30 Eye Lubricant (Artificial Tears Oph) 1 drop BID BOTH EYES Last administered on 06/25/17 09:17; Admin Dose 1 DROP; Start 06/20/17 at 21:00 Acetaminophen 650 mg 650 mg Q6H PRN PO PAIN AND OR ELEVATED TEMP Last administered on 06/22/17 21:31; Admin Dose 650 MG; Start 06/19/17 at 23:00 Sodium Chloride (NS) 1,000 ml @ 50 mls/hr Q20H IV Last administered on 12:24; Admin Dose 50 MLS/HR; Start 06/20/17 at 14:00 Enoxaparin Sodium (Lovenox) 30 mg DAILY SC Last administered on 06/25/17 09:10 ; Admin Dose 30 MG; Start 06/20/17 at 15:00 Amikacin Sulfate (Amikacin Iv Per Pharmacy) AMIKACIN PER PHARMACY NOTE XX ; Start 06/21/17 at 16:00 Acetaminophen/ Hydrocodone Bitart 1 tab 1 tab Q4H PRN PO PAIN Last administered on 06/21/17 21:12; Admin Dose 1 TAB; Start 06/21/17 at 16:00 Amikacin Sulfate/ Sodium Chloride (Amikacin/NS) 101 ml @ 102 mls/hr Q24H IVPB Last administered on 06/23/17 16:12; Admin Dose 102 MLS/HR; Start 06/21/17 at 17:00 Zolpidem Tartrate (Ambien) 5 mg HS PRN PO INSOMNIA Last administered on 20:11; Admin Dose 5 MG; Start 06/22/17 at 01:00 Al Hydrox/Mg Hydrox/Simethicone (Mag-Al Plus) 30 ml BID PO Last administered on 06/25/17 09:04; Admin Dose 30 ML; Start 06/22/17 at 21:00 Docusate Sodium (Colace) 100 mg BID PO Last administered on 06/25/17 09:05; Admin Dose 100 MG; Start 06/22/17 at 21:00 Polyethylene Glycol (Miralax) 17 gm BID PO Last administered on 06/25/17 09:04 ; Admin Dose 17 GM; Start 06/22/17 at 21:00 Tramadol HCl (Ultram) 50 mg BID PO Last administered on 06/25/17 09:18; Admin Dose 50 MG; Start 06/23/17 at 12:30 JARROD CAMARA Jun 25, 2017 13:36
[2017-06-25 14:05] VITALS: BP 130/80; RESP 16
[2017-06-25] MEDS: SOD CHLORIDE 0.9% 1,000 ML IV SCH (14:12)
[2017-06-25] MEDS ORDERED: traMADol 50 MG TAB PO PRN (17:00)
[2017-06-25] MEDS: AMIKACIN 250 MG in SOD CHLORIDE 0.9% 100 ML IVPB SCH (17:35)
[2017-06-25 19:47] VITALS: BP 148/64; RESP 18
[2017-06-25] MEDS: GABAPENTIN 100 MG CAP PO SCH (22:56)
[2017-06-25] MEDS: ATORVASTATIN 20 MG TAB PO SCH (22:56)
[2017-06-26] MEDS: ACETAMINOPHEN 325 MG TAB PO PRN (00:44)
[2017-06-26] MEDS: LEVALBUTEROL (NEB) 0.63 MG/3 ML AMP HHN SCH ×4 (01:32→20:35)
[2017-06-26 02:06] VITALS: BP 137/58; RESP 18
[2017-06-26 05:59] LABS: BASOPHILS % 0.3 % (0.0-2.0); EOSINOPHILS # 0.6 10^3/ul (0.0-0.5); EOSINOPHILS % 8.1 % (0.0-7.0); HEMATOCRIT 34.1 % (37.0-47.0); HEMOGLOBIN 11.6 g/dl (12.0-16.0); LYMPHOCYTES # 2.3 10^3/ul (0.8-2.9); LYMPHOCYTES % 29.7 % (15.0-51.0); MEAN CORPUSCULAR HEMOGLOBIN 32.9 pg (29.0-33.0); MEAN CORPUSCULAR VOLUME 96.6 fl (82.0-101.0); MEAN PLATELET VOLUME 9.1 fl (7.4-10.4); MONOCYTE # 0.7 10^3/ul (0.3-0.9); MONOCYTES % 8.8 % (0.0-11.0); NEUTROPHIL # 4.1 10^3/ul (1.6-7.5); PLATELET COUNT 218 10^3/UL (140-415); RED BLOOD COUNT 3.53 10^6/ul (4.20-5.40); RED CELL DISTRIBUTION WIDTH 11.9 % (11.5-14.5); WHITE BLOOD COUNT 7.8 10^3/ul (4.8-10.8)
[2017-06-26 06:30] LABS: CALCIUM 8.4 mg/dl (8.4-10.2); CREATININE 0.58 mg/dl (0.44-1.00); POTASSIUM 3.8 mmol/L (3.5-5.1)
[2017-06-26 07:43] VITALS: BP 129/61; RESP 16
--- NOTE | 2017-06-26 08:14 | RADRPT ---
PROCEDURE: Nuclear medicine HIDA scan CLINICAL INDICATION: Abdominal pain. Possible cholecystitis. TECHNIQUE: 7.1 mCi of technetium-99m DISIDA was administered intravenously. Planar imaging of the hepatobiliary system was performed. Delayed images were obtained. Images were reviewed on the hig h resolution PACS workstation. COMPARISON: CT 06/21/2017 FINDINGS: There is normal uptake throughout the hepatobiliary system. There is normal emptying of radiotracer into the biliary tract. The common bile duct is patent. The gallbladder is visualized at 35 minut es. There is visualization of the small bowel at 180 minutes. IMPRESSION: Patent common bile duct and cystic duct. No evidence of cholecystitis. RPTAT:AAJJ Physician Benjamin Date Time Electronically viewed and signed by Physician Benjamin on 06/26/2017 08:14 /
[2017-06-26] MEDS: METOPROLOL 25 MG TAB PO SCH ×2 (08:17→21:00)
[2017-06-26] MEDS: CHOLECALCIFEROL 1,000 UNIT TAB PO SCH (08:17)
[2017-06-26] MEDS: PANTOPRAZOLE (EC) 40 MG TAB PO SCH (08:17)
[2017-06-26] MEDS: ASPIRIN (EC) 81 MG TAB PO SCH (08:17)
[2017-06-26] MEDS: DOCUSATE SODIUM 100 MG CAP PO SCH (08:17)
[2017-06-26] MEDS: SODIUM CHLORIDE 1 GM TAB PO SCH ×2 (08:18→21:43)
[2017-06-26] MEDS: CARBIDOPA/LEVODOPA (25/100) TAB PO SCH ×2 (08:18→21:43)
[2017-06-26] MEDS: AL HYDROX/MG HYDROX/SIMETH 30 ML CUP PO SCH ×2 (08:21→21:42)
[2017-06-26] MEDS: ENOXAPARIN 30 MG/0.3 ML SYG SC SCH (08:21)
[2017-06-26] MEDS: ARTIFICIAL TEARS 15 ML OPH BOTH EYES SCH ×2 (08:25→21:43)
[2017-06-26] MEDS: SOD CHLORIDE 0.9% 1,000 ML IV SCH (11:44)
--- NOTE | 2017-06-26 12:10 | PN ---
Date/Time of Note Date/Time of Note DATE: 06/26/17 TIME: 12:06 Assessment/Plan VTE Prophylaxis VTE Prophylaxis Intervention: SCD's Lines/Catheters IV Catheter Type (from Nrs): Peripheral IV Assessment/Plan Chief Complaint/Hosp Course Patient remains hemodynamically stable, stated that her abdominal pain decreased. Continue patient on amikacin, anticipate [facility] to [facility] facility upon completion of amikacin on Saturday. Assessment/Plan - Abdominal pain, resolving. Cholelithiasis per CT abd. HIDA scan revealed patent common bile duct and cystic duct. - MDR Proteus mirabilis urinary tract infection, continue amikacin. Monitor postvoid residual. Dr. Zalidvar is following in infection disease consultation. - Possible dysphagia, patient able to tolerate pured diet, plan for reevaluation by speech therapy tomorrow - Hypertension. Continue metoprolol. - Parkinsonism, stable. Continue Sinemet. - Dyslipidemia. Continue Lipitor. Further recommendations based on clinical course. Plan of care discussed with Dr. King Problems: Exam/Review of Systems Vital Signs Vitals Vital Signs Date Time Temp Pulse Resp B/P Pulse Ox O2 Delivery O2 Flow Rate FiO2 06/26/17 07:43 98.4 60 16 129/61 97 06/25/17 19:54 21 06/22/17 08:34 Intake and Output 06/25/17 06/25/17 06/26/17 15:00 23:00 07:00 Intake Total 611 ml 840 ml Balance 611 ml 840 ml Exam Constitutional: alert, oriented Head: normocephalic Neck: supple Respiratory: normal air movement Cardiovascular: nl pulses Gastrointestinal: soft, tender Extremities: normal pulses Results Result Diagram: 06/26/1751106/26/1712 Results 24 hrs Laboratory Tests Test 06/26/17 05:12 White Blood Count 7.8 Red Blood Count 3.53 L Hemoglobin 11.6 L Hematocrit 34.1 L Mean Corpuscular Volume 96.6 Mean Corpuscular Hemoglobin 32.9 Mean Corpuscular Hemoglobin Concent 34.0 Red Cell Distribution Width 11.9 Platelet Count 218 Mean Platelet Volume 9.1 Neutrophils % 53.0 Lymphocytes % 29.7 Monocytes % 8.8 Eosinophils % 8.1 H Basophils % 0.3 Nucleated Red Blood Cells % 0.0 Neutrophils # 4.1 Lymphocytes # 2.3 Monocytes # 0.7 Eosinophils # 0.6 H Basophils # 0.0 Nucleated Red Blood Cells # 0.0 Sodium Level 135 Potassium Level 3.8 Chloride Level 98 Carbon Dioxide Level 28 Anion Gap 13 Blood Urea Nitrogen 10 Creatinine 0.58 Glucose Level 97 Calcium Level 8.4 Medications Medications Current Medications Ondansetron HCl (Zofran Inj) 4 mg Q6H PRN IV NAUSEA AND/OR VOMITING; Start 06/19/17 at 23:00 Aspirin (Halfprin) 81 mg DAILY PO Last administered on 06/26/17 08:17; Admin Dose 81 MG; Start 06/20/17 at 09:00 Atorvastatin Calcium (Lipitor) 20 mg QHS PO Last administered on 06/25/17 22: 56; Admin Dose 20 MG; Start 06/20/17 at 21:00 Bisacodyl (Dulcolax Supp) 10 mg Q24H [place] ; Start 06/19/17 at 23:00 Carbidopa/Levodopa (Sinemet (25/ 100)) 1 tab BID PO Last administered on 08:18; Admin Dose 1 TAB; Start 06/20/17 at 21:00 Cholecalciferol (Vitamin D) 1,000 unit DAILY PO Last administered on 06/26/17 08:17; Admin Dose 1,000 UNIT; Start 06/20/17 at 09:00 Gabapentin (Neurontin) 100 mg QHS PO Last administered on 06/25/17 22:56; Admin Dose 100 MG; Start 06/20/17 at 21:00 Metoprolol Tartrate (Lopressor) 12.5 mg BID PO Last administered on 06/26/17 08:17; Admin Dose 12.5 MG; Start 06/20/17 at 21:00 Sodium Chloride (Nacl) 1 gm BID PO Last administered on 06/26/17 08:18; Admin Dose 1 GM; Start 06/19/17 at 23:30 Eye Lubricant (Artificial Tears Oph) 1 drop BID BOTH EYES Last administered on 06/26/17 08:25; Admin Dose 1 DROP; Start 06/20/17 at 21:00 Acetaminophen 650 mg 650 mg Q6H PRN PO PAIN AND OR ELEVATED TEMP Last administered on 06/26/17 00:44; Admin Dose 650 MG; Start 06/19/17 at 23:00 Sodium Chloride (NS) 1,000 ml @ 50 mls/hr Q20H IV Last administered on 11:44; Admin Dose 50 MLS/HR; Start 06/20/17 at 14:00 Enoxaparin Sodium (Lovenox) 30 mg DAILY SC Last administered on 06/26/17 08:21 ; Admin Dose 30 MG; Start 06/20/17 at 15:00 Amikacin Sulfate (Amikacin Iv Per Pharmacy) AMIKACIN PER PHARMACY NOTE XX ; Start 06/21/17 at 16:00 Acetaminophen/ Hydrocodone Bitart 1 tab 1 tab Q4H PRN PO PAIN Last administered on 06/21/17 21:12; Admin Dose 1 TAB; Start 06/21/17 at 16:00 Amikacin Sulfate/ Sodium Chloride (Amikacin/NS) 101 ml @ 102 mls/hr Q24H IVPB Last administered on 06/25/17 17:35; Admin Dose 102 MLS/HR; Start 06/21/17 at 17:00 Zolpidem Tartrate (Ambien) 5 mg HS PRN PO INSOMNIA Last administered on 20:11; Admin Dose 5 MG; Start 06/22/17 at 01:00 Al Hydrox/Mg Hydrox/Simethicone (Mag-Al Plus) 30 ml BID PO Last administered on 06/26/17 08:21; Admin Dose 30 ML; Start 06/22/17 at 21:00 Docusate Sodium (Colace) 100 mg BID PO Last administered on 06/26/17 08:17; Admin Dose 100 MG; Start 06/22/17 at 21:00 Polyethylene Glycol (Miralax) 17 gm BID PO Last administered on 06/25/17 09:04 ; Admin Dose 17 GM; Start 06/22/17 at 21:00 Tramadol HCl (Ultram) 50 mg BID PRN PO PAIN; Start 06/25/17 at 17:00 ERMIAS TOBAR Jun 26, 2017 12:10
--- NOTE | 2017-06-26 12:51 | CONS ---
Date/Time of Note Date/Time of Note DATE: 06/26/17 TIME: 12:51 Consult Date/Type/Reason Admit Date/Time Jun 19, 2017 at 21:03 Type of Consultation: ID Objective Vital Signs Date Time Temp Pulse Resp B/P Pulse Ox O2 Delivery O2 Flow Rate FiO2 06/26/17 07:43 98.4 60 16 129/61 97 06/25/17 19:54 21 06/22/17 08:34 Intake and Output 06/25/17 06/25/17 06/26/17 15:00 23:00 07:00 Intake Total 611 ml 840 ml Balance 611 ml 840 ml Results/Medications Result Diagram: 06/26/17 0512 06/26/17 0512 Results 24 hrs Laboratory Tests Test 06/26/17 05:12 White Blood Count 7.8 Red Blood Count 3.53 L Hemoglobin 11.6 L Hematocrit 34.1 L Mean Corpuscular Volume 96.6 Mean Corpuscular Hemoglobin 32.9 Mean Corpuscular Hemoglobin Concent 34.0 Red Cell Distribution Width 11.9 Platelet Count 218 Mean Platelet Volume 9.1 Neutrophils % 53.0 Lymphocytes % 29.7 Monocytes % 8.8 Eosinophils % 8.1 H Basophils % 0.3 Nucleated Red Blood Cells % 0.0 Neutrophils # 4.1 Lymphocytes # 2.3 Monocytes # 0.7 Eosinophils # 0.6 H Basophils # 0.0 Nucleated Red Blood Cells # 0.0 Sodium Level 135 Potassium Level 3.8 Chloride Level 98 Carbon Dioxide Level 28 Anion Gap 13 Blood Urea Nitrogen 10 Creatinine 0.58 Glucose Level 97 Calcium Level 8.4 Medications Current Medications Ondansetron HCl (Zofran Inj) 4 mg Q6H PRN IV NAUSEA AND/OR VOMITING; Start 06/19/17 at 23:00 Aspirin (Halfprin) 81 mg DAILY PO Last administered on 06/26/17 08:17; Admin Dose 81 MG; Start 06/20/17 at 09:00 Atorvastatin Calcium (Lipitor) 20 mg QHS PO Last administered on 06/25/17 22: 56; Admin Dose 20 MG; Start 06/20/17 at 21:00 Bisacodyl (Dulcolax Supp) 10 mg Q24H [place] ; Start 06/19/17 at 23:00 Carbidopa/Levodopa (Sinemet (25/ 100)) 1 tab BID PO Last administered on 08:18; Admin Dose 1 TAB; Start 06/20/17 at 21:00 Cholecalciferol (Vitamin D) 1,000 unit DAILY PO Last administered on 06/26/17 08:17; Admin Dose 1,000 UNIT; Start 06/20/17 at 09:00 Gabapentin (Neurontin) 100 mg QHS PO Last administered on 06/25/17 22:56; Admin Dose 100 MG; Start 06/20/17 at 21:00 Metoprolol Tartrate (Lopressor) 12.5 mg BID PO Last administered on 06/26/17 08:17; Admin Dose 12.5 MG; Start 06/20/17 at 21:00 Sodium Chloride (Nacl) 1 gm BID PO Last administered on 06/26/17 08:18; Admin Dose 1 GM; Start 06/19/17 at 23:30 Eye Lubricant (Artificial Tears Oph) 1 drop BID BOTH EYES Last administered on 06/26/17 08:25; Admin Dose 1 DROP; Start 06/20/17 at 21:00 Acetaminophen 650 mg 650 mg Q6H PRN PO PAIN AND OR ELEVATED TEMP Last administered on 06/26/17 00:44; Admin Dose 650 MG; Start 06/19/17 at 23:00 Sodium Chloride (NS) 1,000 ml @ 50 mls/hr Q20H IV Last administered on 11:44; Admin Dose 50 MLS/HR; Start 06/20/17 at 14:00 Enoxaparin Sodium (Lovenox) 30 mg DAILY SC Last administered on 06/26/17 08:21 ; Admin Dose 30 MG; Start 06/20/17 at 15:00 Amikacin Sulfate (Amikacin Iv Per Pharmacy) AMIKACIN PER PHARMACY NOTE XX ; Start 06/21/17 at 16:00 Acetaminophen/ Hydrocodone Bitart 1 tab 1 tab Q4H PRN PO PAIN Last administered on 06/21/17 21:12; Admin Dose 1 TAB; Start 06/21/17 at 16:00 Amikacin Sulfate/ Sodium Chloride (Amikacin/NS) 101 ml @ 102 mls/hr Q24H IVPB Last administered on 06/25/17 17:35; Admin Dose 102 MLS/HR; Start 06/21/17 at 17:00 Zolpidem Tartrate (Ambien) 5 mg HS PRN PO INSOMNIA Last administered on 20:11; Admin Dose 5 MG; Start 06/22/17 at 01:00 Al Hydrox/Mg Hydrox/Simethicone (Mag-Al Plus) 30 ml BID PO Last administered on 06/26/17 08:21; Admin Dose 30 ML; Start 06/22/17 at 21:00 Docusate Sodium (Colace) 100 mg BID PO Last administered on 06/26/17 08:17; Admin Dose 100 MG; Start 06/22/17 at 21:00 Polyethylene Glycol (Miralax) 17 gm BID PO Last administered on 06/25/17 09:04 ; Admin Dose 17 GM; Start 06/22/17 at 21:00 Tramadol HCl (Ultram) 50 mg BID PRN PO PAIN; Start 06/25/17 at 17:00 Assessment/Plan Chief Complaint/Hosp Course SUBJECTIVE: No acute events overnight. Alert, feels good, looks comfortable. No fevers. MICROBIOLOGY: Urine culture on admission grew Proteus mirabilis susceptible to aminoglycosides. ANTIMICROBIALS: Amikacin PHYSICAL EXAMINATION: GENERAL: This is a fragile, well-developed, elderly woman who is awake, in no distress. HEENT: Atraumatic, normocephalic. Sclerae anicteric. Buccal mucosa dry. NECK: Supple. CHEST: Rise is symmetrical. Breath sounds with scattered crackles. HEART: S1, S2. ABDOMEN: Soft. Bowel sounds present. EXTREMITIES: Without cyanosis. ASSESSMENT: 1. Urinary tract infection. 2. Constipation with fecal impaction. 3. History of Parkinson's dementia and hypertension. 4. Status post hyperkalemia, resolved. PLAN: The patient remains stable. Continue abx for couple more days. Continue anti-aspiration precautions. staff Problems: BA SARKAR NP Jun 26, 2017 12:51
[2017-06-26 13:34] VITALS: BP 121/62; RESP 18
[2017-06-26] MEDS: AMIKACIN 250 MG in SOD CHLORIDE 0.9% 100 ML IVPB SCH (17:08)
[2017-06-26 20:00] VITALS: BP 155/67; RESP 20
[2017-06-26] MEDS: DOCUSATE SODIUM 10 MG/ML (10ML CUP) PO SCH (21:42)
[2017-06-26] MEDS: POLYETHYLENE GLYCOL 17 GM PACKET PO SCH (21:42)
[2017-06-26] MEDS: ATORVASTATIN 20 MG TAB PO SCH (21:43)
[2017-06-26] MEDS: GABAPENTIN 100 MG CAP PO SCH (21:43)
[2017-06-26] MEDS: BISACODYL 10 MG SUPP PR SCH (23:00)
[2017-06-27] MEDS: LEVALBUTEROL (NEB) 0.63 MG/3 ML AMP HHN SCH ×4 (01:43→19:32)
[2017-06-27 02:00] VITALS: BP 103/51; RESP 20
[2017-06-27] MEDS: SOD CHLORIDE 0.9% 1,000 ML IV SCH ×2 (05:45→21:20)
[2017-06-27 06:02] LABS: BASOPHILS % 0.2 % (0.0-2.0); EOSINOPHILS # 0.6 10^3/ul (0.0-0.5); EOSINOPHILS % 6.8 % (0.0-7.0); HEMATOCRIT 32.7 % (37.0-47.0); LYMPHOCYTES # 2.1 10^3/ul (0.8-2.9); LYMPHOCYTES % 23.4 % (15.0-51.0); MEAN CORPUSCULAR HGB CONC 33.6 g/dl (32.0-37.0); MEAN CORPUSCULAR VOLUME 98.2 fl (82.0-101.0); MEAN PLATELET VOLUME 9.1 fl (7.4-10.4); MONOCYTE # 0.9 10^3/ul (0.3-0.9); NEUTROPHIL # 5.3 10^3/ul (1.6-7.5); NEUTROPHILS % 59.4 % (39.0-77.0); PLATELET COUNT 213 10^3/UL (140-415); RED BLOOD COUNT 3.33 10^6/ul (4.20-5.40); WHITE BLOOD COUNT 8.9 10^3/ul (4.8-10.8)
[2017-06-27 06:51] LABS: CALCIUM 8.3 mg/dl (8.4-10.2); CREATININE 0.65 mg/dl (0.44-1.00); POTASSIUM 3.5 mmol/L (3.5-5.1)
[2017-06-27 07:15] VITALS: BP 153/63; RESP 20
[2017-06-27] MEDS: CARBIDOPA/LEVODOPA (25/100) TAB PO SCH ×2 (08:59→21:23)
[2017-06-27] MEDS: DOCUSATE SODIUM 10 MG/ML (10ML CUP) PO SCH ×2 (08:59→21:22)
[2017-06-27] MEDS: PANTOPRAZOLE (EC) 40 MG TAB PO SCH (08:59)
[2017-06-27] MEDS: CHOLECALCIFEROL 1,000 UNIT TAB PO SCH (08:59)
[2017-06-27] MEDS: ARTIFICIAL TEARS 15 ML OPH BOTH EYES SCH ×2 (08:59→21:24)
[2017-06-27] MEDS: SODIUM CHLORIDE 1 GM TAB PO SCH ×2 (08:59→21:22)
[2017-06-27] MEDS: ASPIRIN (EC) 81 MG TAB PO SCH (09:00)
[2017-06-27] MEDS: AL HYDROX/MG HYDROX/SIMETH 30 ML CUP PO SCH ×2 (09:00→21:23)
[2017-06-27] MEDS: METOPROLOL 25 MG TAB PO SCH ×2 (09:00→21:23)
[2017-06-27] MEDS: POLYETHYLENE GLYCOL 17 GM PACKET PO SCH ×2 (09:00→21:22)
[2017-06-27] MEDS: ENOXAPARIN 30 MG/0.3 ML SYG SC SCH (09:23)
[2017-06-27 14:29] VITALS: BP 116/53; RESP 14
[2017-06-27] MEDS: ACETAMINOPHEN 325 MG TAB PO PRN (14:51)
--- NOTE | 2017-06-27 19:50 | PN ---
Date/Time of Note Date/Time of Note DATE: 06/27/17 TIME: 19:48 Assessment/Plan VTE Prophylaxis VTE Prophylaxis Intervention: other Lines/Catheters IV Catheter Type (from Nrs): Peripheral IV Assessment/Plan Assessment/Plan - Abdominal pain, resolving. Cholelithiasis per CT abd. HIDA scan revealed patent common bile duct and cystic duct. - MDR Proteus mirabilis urinary tract infection, continue amikacin. Monitor postvoid residual. Dr. Zaldivar is following in infection disease consultation. - Possible dysphagia, patient able to tolerate pured diet, plan for reevaluation by speech therapy tomorrow - Hypertension. Continue metoprolol. - Parkinsonism, stable. Continue Sinemet. - Dyslipidemia. Continue Lipitor. Anticipate discharge to longterm facility upon completion of amikacin on Saturday.Further recommendations based on clinical course. Plan of care discussed with Dr. King Subjective 24 Hr Interval Summary Respiratory: no complaints Cardiovascular: no complaints Gastrointestinal: pain Genitourinary: no complaints Musculoskeletal: no complaints Exam/Review of Systems Vital Signs Vitals Vital Signs Date Time Temp Pulse Resp B/P Pulse Ox O2 Delivery O2 Flow Rate FiO2 06/27/17 19:35 65 17 96 06/27/17 19:35 2.0 06/27/17 14:29 98.2 116/53 06/27/17 07:54 21 Intake and Output 06/26/17 06/26/17 06/27/17 14:59 22:59 06:59 Intake Total 250 ml 1180 ml 480 ml Balance 250 ml 1180 ml 480 ml Exam Constitutional: alert, well developed Respiratory: diminished breath sounds Cardiovascular: other (S1S2) Gastrointestinal: soft, tender Musculoskeletal: muscle weakness Extremities: normal pulses Neurological: confused, nl speech Results Result Diagram: 06/27/17 0536 06/27/17 0536 Results 24 hrs Laboratory Tests Test 06/27/17 05:36 White Blood Count 8.9 Red Blood Count 3.33 L Hemoglobin 11.0 L Hematocrit 32.7 L Mean Corpuscular Volume 98.2 Mean Corpuscular Hemoglobin 33.0 Mean Corpuscular Hemoglobin Concent 33.6 Red Cell Distribution Width 12.0 Platelet Count 213 Mean Platelet Volume 9.1 Neutrophils % 59.4 Lymphocytes % 23.4 Monocytes % 10.0 Eosinophils % 6.8 Basophils % 0.2 Nucleated Red Blood Cells % 0.0 Neutrophils # 5.3 Lymphocytes # 2.1 Monocytes # 0.9 Eosinophils # 0.6 H Basophils # 0.0 Nucleated Red Blood Cells # 0.0 Sodium Level 139 Potassium Level 3.5 Chloride Level 103 Carbon Dioxide Level 27 Anion Gap 13 Blood Urea Nitrogen 9 Creatinine 0.65 Glucose Level 88 Calcium Level 8.3 L Medications Medications Current Medications Ondansetron HCl (Zofran Inj) 4 mg Q6H PRN IV NAUSEA AND/OR VOMITING; Start 06/19/17 at 23:00 Aspirin (Halfprin) 81 mg DAILY PO Last administered on 06/27/17 09:00; Admin Dose 81 MG; Start 06/20/17 at 09:00 Atorvastatin Calcium (Lipitor) 20 mg QHS PO Last administered on 06/26/17 21: 43; Admin Dose 20 MG; Start 06/20/17 at 21:00 Bisacodyl (Dulcolax Supp) 10 mg Q24H AK ; Start 06/19/17 at 23:00 Carbidopa/Levodopa (Sinemet (25/ 100)) 1 tab BID PO Last administered on 08:59; Admin Dose 1 TAB; Start 06/20/17 at 21:00 Cholecalciferol (Vitamin D) 1,000 unit DAILY PO Last administered on 06/27/17 08:59; Admin Dose 1,000 UNIT; Start 06/20/17 at 09:00 Gabapentin (Neurontin) 100 mg QHS PO Last administered on 06/26/17 21:43; Admin Dose 100 MG; Start 06/20/17 at 21:00 Metoprolol Tartrate (Lopressor) 12.5 mg BID PO Last administered on 06/27/17 09:00; Admin Dose 12.5 MG; Start 06/20/17 at 21:00 Sodium Chloride (Nacl) 1 gm BID PO Last administered on 06/27/17 08:59; Admin Dose 1 GM; Start 06/19/17 at 23:30 Eye Lubricant (Artificial Tears Oph) 1 drop BID BOTH EYES Last administered on 06/27/17 08:59; Admin Dose 1 DROP; Start 06/20/17 at 21:00 Acetaminophen 650 mg 650 mg Q6H PRN PO PAIN AND OR ELEVATED TEMP Last administered on 06/27/17 14:51; Admin Dose 650 MG; Start 06/19/17 at 23:00 Sodium Chloride (NS) 1,000 ml @ 50 mls/hr Q20H IV Last administered on 11:44; Admin Dose 50 MLS/HR; Start 06/20/17 at 14:00 Enoxaparin Sodium (Lovenox) 30 mg DAILY SC Last administered on 06/27/17 09:23 ; Admin Dose 30 MG; Start 06/20/17 at 15:00 Acetaminophen/ Hydrocodone Bitart ([place] (5/325)) 1 tab Q4H PRN PO PAIN Last administered on 06/21/17 21:12; Admin Dose 1 TAB; Start 06/21/17 at 16:00 Zolpidem Tartrate (Ambien) 5 mg HS PRN PO INSOMNIA Last administered on 20:11; Admin Dose 5 MG; Start 06/22/17 at 01:00 Al Hydrox/Mg Hydrox/Simethicone (Mag-Al Plus) 30 ml BID PO Last administered on 06/27/17 09:00; Admin Dose 30 ML; Start 06/22/17 at 21:00 Polyethylene Glycol (Miralax) 17 gm BID PO Last administered on 06/27/17 09:00 ; Admin Dose 17 GM; Start 06/22/17 at 21:00 Tramadol HCl (Ultram) 50 mg BID PRN PO PAIN; Start 06/25/17 at 17:00 Docusate Sodium (Colace Liquid Cup) 100 mg BID PO Last administered on 08:59; Admin Dose 100 MG; Start 06/26/17 at 21:00 ABBY JOEL Jun 27, 2017 19:50
[2017-06-27 20:08] VITALS: BP 115/58; RESP 20
[2017-06-27] MEDS: ATORVASTATIN 20 MG TAB PO SCH (21:22)
[2017-06-27] MEDS: GABAPENTIN 100 MG CAP PO SCH (21:23)
[2017-06-27] MEDS: BISACODYL 10 MG SUPP PR SCH (23:00)
[2017-06-28 01:57] VITALS: BP 93/44; RESP 20
[2017-06-28] MEDS: LEVALBUTEROL (NEB) 0.63 MG/3 ML AMP HHN SCH ×3 (02:00→14:00)
[2017-06-28] MEDS: SOD CHLORIDE 0.9% 1,000 ML IV SCH (02:00)
[2017-06-28 06:16] LABS: BASOPHILS % 0.3 % (0.0-2.0); EOSINOPHILS # 0.7 10^3/ul (0.0-0.5); EOSINOPHILS % 9.7 % (0.0-7.0); HEMATOCRIT 33.7 % (37.0-47.0); HEMOGLOBIN 11.1 g/dl (12.0-16.0); LYMPHOCYTES # 2.2 10^3/ul (0.8-2.9); LYMPHOCYTES % 30.7 % (15.0-51.0); MEAN CORPUSCULAR HEMOGLOBIN 32.6 pg (29.0-33.0); MEAN CORPUSCULAR HGB CONC 32.9 g/dl (32.0-37.0); MEAN CORPUSCULAR VOLUME 98.8 fl (82.0-101.0); MEAN PLATELET VOLUME 9.2 fl (7.4-10.4); MONOCYTE # 0.7 10^3/ul (0.3-0.9); MONOCYTES % 9.4 % (0.0-11.0); NEUTROPHIL # 3.6 10^3/ul (1.6-7.5); NEUTROPHILS % 49.8 % (39.0-77.0); PLATELET COUNT 222 10^3/UL (140-415); RED BLOOD COUNT 3.41 10^6/ul (4.20-5.40); RED CELL DISTRIBUTION WIDTH 12.2 % (11.5-14.5); WHITE BLOOD COUNT 7.2 10^3/ul (4.8-10.8)
[2017-06-28 07:01] LABS: CALCIUM 8.5 mg/dl (8.4-10.2); CREATININE 0.66 mg/dl (0.44-1.00); POTASSIUM 3.6 mmol/L (3.5-5.1)
[2017-06-28 07:15] VITALS: BP 134/63; RESP 18
[2017-06-28] MEDS: CHOLECALCIFEROL 1,000 UNIT TAB PO SCH (08:48)
[2017-06-28] MEDS: SODIUM CHLORIDE 1 GM TAB PO SCH (08:48)
[2017-06-28] MEDS: DOCUSATE SODIUM 10 MG/ML (10ML CUP) PO SCH (08:49)
[2017-06-28] MEDS: PANTOPRAZOLE (EC) 40 MG TAB PO SCH (08:49)
[2017-06-28] MEDS: ASPIRIN (EC) 81 MG TAB PO SCH (08:49)
[2017-06-28] MEDS: AL HYDROX/MG HYDROX/SIMETH 30 ML CUP PO SCH (08:49)
[2017-06-28] MEDS: CARBIDOPA/LEVODOPA (25/100) TAB PO SCH (08:49)
[2017-06-28] MEDS: METOPROLOL 25 MG TAB PO SCH (08:51)
[2017-06-28] MEDS: POLYETHYLENE GLYCOL 17 GM PACKET PO SCH (08:51)
[2017-06-28] MEDS: ARTIFICIAL TEARS 15 ML OPH BOTH EYES SCH (08:51)
[2017-06-28] MEDS: ENOXAPARIN 30 MG/0.3 ML SYG SC SCH (09:30)
--- NOTE | 2017-06-28 09:34 | PN ---
DATE: 06/27/2017 SUBJECTIVE: The patient is now lying comfortably in bed. Afebrile. Denies pain. LABORATORY DATA: WBC today 8.9, no shift, no bands. BUN 9, creatinine 0.65. ANTIMICROBIALS: Amikacin, day #7. PHYSICAL EXAMINATION: GENERAL: This is a fragile, elderly woman who is in no distress. HEENT: Head atraumatic, normocephalic. Sclerae anicteric. Buccal mucosa dry. NECK: Supple. CHEST: Rise symmetrical. Breath sounds diminished to bases. HEART: S1, S2. ABDOMEN: Soft, bowel tones present. EXTREMITIES: Without cyanosis. ASSESSMENT: 1. Systemic inflammatory response syndrome. 2. Urinary tract infections. 3. Parkinson's dementia. 4. Hypertension. PLAN: The patient remains stable, completed antibiotics. We are going to discontinue amikacin toda y and observe her. Dictated By: BA SARKAR ADULT CARE MANAGER for GABBIE ALBERT/JOSEPH Conf#: [id number] DID#: [id number]
[2017-06-28] MEDS: ACETAMINOPHEN 325 MG TAB PO PRN (11:08)
--- NOTE | 2017-06-28 12:49 | CONS ---
Date/Time of Note Date/Time of Note DATE: 06/28/17 TIME: 12:47 Assessment/Plan Assessment/Plan Chief Complaint/Hosp Course SUBJECTIVE: No acute events overnight. Awake, looks comfortable. No fevers. MICROBIOLOGY: Urine culture on admission grew Proteus mirabilis susceptible to aminoglycosides==> treated with Amikacin. PHYSICAL EXAMINATION: GENERAL: This is a fragile, well-developed, elderly woman who is awake, in no distress. HEENT: Atraumatic, normocephalic. Sclerae anicteric. Buccal mucosa dry. NECK: Supple. CHEST: Rise is symmetrical. Breath sounds with scattered crackles. HEART: S1, S2. ABDOMEN: Soft. Bowel sounds present. EXTREMITIES: Without cyanosis. ASSESSMENT: 1. S/p urinary tract infection. 2. Constipation with fecal impaction. 3. History of Parkinson's dementia and hypertension. 4. Status post hyperkalemia, resolved. PLAN: The patient remains stable. Observe off abx, repeat cx's prn DW staff Problems: Consultation Date/Type/Reason Admit Date/Time Jun 19, 2017 at 21:03 Type of Consultation: ID Exam/Review of Systems Vital Signs Vitals Vital Signs Date Time Temp Pulse Resp B/P Pulse Ox O2 Delivery O2 Flow Rate FiO2 06/28/17 07:55 2.0 06/28/17 07:55 66 18 96 Nasal Cannula 06/28/17 07:15 98.4 134/63 06/28/17 02:30 21 Intake and Output 06/27/17 06/27/17 06/28/17 15:00 23:00 07:00 Intake Total 900 ml 980 ml Balance 900 ml 980 ml Results Result Diagram: 06/28/17 0541 06/28/17 0541 Results 24 hrs Laboratory Tests Test 06/28/17 05:41 White Blood Count 7.2 Red Blood Count 3.41 L Hemoglobin 11.1 L Hematocrit 33.7 L Mean Corpuscular Volume 98.8 Mean Corpuscular Hemoglobin 32.6 Mean Corpuscular Hemoglobin Concent 32.9 Red Cell Distribution Width 12.2 Platelet Count 222 Mean Platelet Volume 9.2 Neutrophils % 49.8 Lymphocytes % 30.7 Monocytes % 9.4 Eosinophils % 9.7 H Basophils % 0.3 Nucleated Red Blood Cells % 0.0 Neutrophils # 3.6 Lymphocytes # 2.2 Monocytes # 0.7 Eosinophils # 0.7 H Basophils # 0.0 Nucleated Red Blood Cells # 0.0 Sodium Level 140 Potassium Level 3.6 Chloride Level 103 Carbon Dioxide Level 28 Anion Gap 13 Blood Urea Nitrogen 10 Creatinine 0.66 Glucose Level 94 Calcium Level 8.5 Medications Medications Current Medications Ondansetron HCl (Zofran Inj) 4 mg Q6H PRN IV NAUSEA AND/OR VOMITING; Start 06/19/17 at 23:00 Aspirin (Halfprin) 81 mg DAILY PO Last administered on 06/28/17 08:49; Admin Dose 81 MG; Start 06/20/17 at 09:00 Atorvastatin Calcium (Lipitor) 20 mg QHS PO Last administered on 06/27/17 21: 22; Admin Dose 20 MG; Start 06/20/17 at 21:00 Bisacodyl (Dulcolax Supp) 10 mg Q24H OR ; Start 06/19/17 at 23:00 Carbidopa/Levodopa (Sinemet (25/ 100)) 1 tab BID PO Last administered on 08:49; Admin Dose 1 TAB; Start 06/20/17 at 21:00 Cholecalciferol (Vitamin D) 1,000 unit DAILY PO Last administered on 08:48; Admin Dose 1,000 UNIT; Start 06/20/17 at 09:00 Gabapentin (Neurontin) 100 mg QHS PO Last administered on 06/27/17 21:23; Admin Dose 100 MG; Start 06/20/17 at 21:00 Metoprolol Tartrate (Lopressor) 12.5 mg BID PO Last administered on 06/28/17 08:51; Admin Dose 12.5 MG; Start 06/20/17 at 21:00 Sodium Chloride (Nacl) 1 gm BID PO Last administered on 06/28/17 08:48; Admin Dose 1 GM; Start 06/19/17 at 23:30 Eye Lubricant (Artificial Tears Oph) 1 drop BID BOTH EYES Last administered on 06/28/17 08:51; Admin Dose 1 DROP; Start 06/20/17 at 21:00 Acetaminophen 650 mg 650 mg Q6H PRN PO PAIN AND OR ELEVATED TEMP Last administered on 06/28/17 11:08; Admin Dose 650 MG; Start 06/19/17 at 23:00 Sodium Chloride (NS) 1,000 ml @ 50 mls/hr Q20H IV Last administered on 21:20; Admin Dose 50 MLS/HR; Start 06/20/17 at 14:00 Enoxaparin Sodium (Lovenox) 30 mg DAILY SC Last administered on 06/28/17 09: 30; Admin Dose 30 MG; Start 06/20/17 at 15:00 Acetaminophen/ Hydrocodone Bitart ([place] (5/325)) 1 tab Q4H PRN PO PAIN Last administered on 06/21/17 21:12; Admin Dose 1 TAB; Start 06/21/17 at 16:00 Zolpidem Tartrate (Ambien) 5 mg HS PRN PO INSOMNIA Last administered on 20:11; Admin Dose 5 MG; Start 06/22/17 at 01:00 Al Hydrox/Mg Hydrox/Simethicone (Mag-Al Plus) 30 ml BID PO Last administered on 06/28/17 08:49; Admin Dose 30 ML; Start 06/22/17 at 21:00 Polyethylene Glycol (Miralax) 17 gm BID PO Last administered on 06/28/17 08: 51; Admin Dose 17 GM; Start 06/22/17 at 21:00 Tramadol HCl (Ultram) 50 mg BID PRN PO PAIN; Start 06/25/17 at 17:00 Docusate Sodium (Colace Liquid Cup) 100 mg BID PO Last administered on 08:49; Admin Dose 100 MG; Start 06/26/17 at 21:00 BA SARKAR NP Jun 28, 2017 12:49
[2017-06-28 14:52] VITALS: BP 142/62; RESP 16
--- NOTE | 2017-06-30 20:48 | DS ---
Date/Time of Note Date/Time of Note DATE: 06/30/17 TIME: 20:46 Discharge Summary Admission/Discharge Info Admit Date/Time Jun 19, 2017 at 21:03 Discharge Date/Time Jun 28, 2017 at 16:30 Patient Condition: Stable Hx of Present Illness The patient is an 86-year-old [place] female with history of hypertension, dyslipidemia, parkinsonism cervical myelopathy status post surgery. The patient also has history of anemia of chronic disease and mild iron deficiency anemia. The patient does also have history of positive troponin; however, the patient's echo earlier this year revealed a preserved LV function. The patient is being treated medically for that. Patient, was noted to have abdominal pain that [facility]. No associated vomiting, no reported fever or chills, no reported tachycardia, no reported rectal bleed, no reported chest pain. The patient was sent to the ER. The patient in the ER was noted to have a low grade temperature, 99.2; however, white count was normal with no left shift. UA was positive for UTI. Chemistry revealed sodium 131, potassium of 4.9. Renal functions were normal. LFTs are normal. Chest x- ray was negative; however, no radiological studies were done for abdominal pain. Patient is still complaining of abdominal pain and therefore, a CT of the abdomen will be obtained. The patient denies any chest pain. No reported wheezing, no reported cough. The patient has generalized weakness and spends most of her time in the bed and is wheelchair bound. No acute skin rash or any acute joint swelling. Hospital Course - Abdominal pain, resolved. Cholelithiasis per CT abd. HIDA scan revealed patent common bile duct and cystic duct. - MDR Proteus mirabilis urinary tract infection, continue amikacin. Monitor postvoid residual. Dr. Zaldivar is following in infection disease consultation. - Hypertension. Continue metoprolol. - Parkinsonism, stable. Continue Sinemet. - Dyslipidemia. Continue Lipitor. Home Meds Reported Medications Dextran 70/Hypromellose/Pf (ARTIFICIAL TEARS DROPS) 1 Each Droperette, 1 EACH OP BID 06/19/17 Pantoprazole* (Pantoprazole*) 40 Mg Tablet., 40 MG PO AC BREAKFAST, TAB 06/19/17 Linaclotide (LINZESS) 145 Mcg Capsule, 145 MCG PO DAILY, #30 CAP 06/19/17 Atorvastatin Calcium* (Atorvastatin Calcium*) 20 Mg Tablet, 20 MG PO QHS, #30 TAB 06/19/17 Aspirin* (Aspirin* EC) 81 Mg Tablet.dr, 81 MG PO DAILY, TAB 06/19/17 Sodium Chloride* (Sodium Chloride*) 1 Gm Tablet, 1 GM PO BID, TAB 09/17/16 Carbidopa-Levodopa* (Sinemet*) 25-100 Mg Tab, 1 TAB PO BID, TAB 09/17/16 Metoprolol Tartrate* (Lopressor*) 25 Mg Tab, 12.5 MG PO BID, #60 TAB HOLD SBP LESS THAN 110 MMHG OR HR LESS THAN 60 BPM 09/17/16 Melatonin (Melatonin) 3 Mg Tablet.sa, 3 MG PO HS, TAB.SA 09/17/16 Mag Hydrox/Al Hydrox/Simeth (Maalox Advanced Suspension) 355 Ml Oral.susp, 30 ML PO Q4 09/17/16 Gabapentin* (Gabapentin*) 100 Mg Capsule, 100 MG PO QHS, #90 CAP 09/17/16 Bisacodyl* (Bisacodyl*) 10 Mg Supp, 10 MG ND Q24H for CONSTIPATION, SUPP 09/17/16 Cholecalciferol* (Vitamin D3*) 1,000 Unit Tablet, 1000 UNIT PO DAILY, TAB 09/17/16 Acetaminophen* (Acetaminophen*) 500 MG Extra Strength Tablet, 1000 MG PO Q6H Y for PAIN LEVEL 4-6/10, TAB 09/17/16 Acetaminophen* (Acetaminophen*) 325 Mg Tablet, 650 MG PO Q4H Y for PAIN AND OR ELEVATED TEMP, #30 TAB if pain level 1-3/10 or temp greater than 101 deg. 09/17/16 Follow-up Plan f/up with PMD in 2 weeks. Primary Care Provider Roberto King MD Time spent on discharge: > 30 minutes Pending Labs Laboratory Tests Test 06/30/17 12:08 Lab Scanned Report REFERENCE [id number] ERMIAS TOBAR Jun 30, 2017 20:48
== END 2017-06-28 16:30 | DRG 690 ==
LOC: E/R 16:31 → MS2 21:03
PROVIDERS: ADMIT Internal Medicine; ATTEND Internal Medicine
DX: N39.0 Urinary tract infection, site not specified (principal); G20 Parkinson's disease; J84.10 Pulmonary fibrosis, unspecified; R65.10 Systemic inflammatory response syndrome (SIRS) of non-infectious origin without acute organ dysfunction; E87.1 Hypo-osmolality and hyponatremia; E87.5 Hyperkalemia; R13.10 Dysphagia, unspecified; I10 Essential (primary) hypertension; E78.5 Hyperlipidemia, unspecified; K80.20 Calculus of gallbladder without cholecystitis without obstruction; K57.90 Diverticulosis of intestine, part unspecified, without perforation or abscess without bleeding; K56.41 Fecal impaction; B96.4 Proteus (mirabilis) (morganii) as the cause of diseases classified elsewhere; Z99.3 Dependence on wheelchair; Z16.24 Resistance to multiple antibiotics; Z66 Do not resuscitate
CPT/HCPCS: 36415; 71010; 74176; 78226; 80048; 80053; 80150; 81001; 83690; 84484; 85025; 85610; 85730; 87081; 87086; 92523; 92526; 92610; 93005; 94640; 94664; 96374; A9537; J0278; J1650; J2543; J7030; P9612